=== PATIENT | male | born 1945 | race Caucasian/White ===

== ENCOUNTER 2020-05-17 15:11 | Outpatient (REF) | payer MEDICARE, SELFPAY | END 2020-05-17 15:12 | disposition home or self-care (01) | LOC: HO.LNP 15:11 | PROVIDERS: PCP Internal Medicine; Visit Provider Urology | DX: N40.1 Benign prostatic hyperplasia with lower urinary tract symptoms (principal); N13.8 Other obstructive and reflux uropathy; N39.0 Urinary tract infection, site not specified | CPT/HCPCS: 87086; 87088; 87186; 99212 ==

== ENCOUNTER 2020-07-10 20:36 | Inpatient (IN) | payer MEDICARE, SELFPAY ==
[2020-07-10 20:39] VITALS: BP 112/61; BP 160/90; PULSE 80; PULSE 84; RESP 16; TEMP 37.4; O2SAT 94; O2SAT 96; BMI 35.9
--- NOTE | 2020-07-10 20:51 | ED.WEAKNESS ---
HPI - Weakness General Chief complaint: Weakness Stated complaint: WEAKNESS X 1 DAY, UNABLE TO AMBULATE Time Seen by Provider: 07/10/20 20:45 Source: patient Mode of arrival: EMS Limitations: no limitations History of Present Illness HPI Narrative: Patient otherwise healthy was diagnosed with COVID 1 week ago for last few days been feeling very weak and today was feeling so weak that he could not get up from the floor for about 12 hours. Patient does feel shortness of breath but is not that much coughing occasionally no fever when patient came he was soiled in urine very exhausted very dry MD Complaint: generalized weakness Onset (ago): day(s) (2) Location: generalized Related Data Home Medications Medication Instructions Recorded Confirmed bromfenac 0.09 % eye drops drp OPHTHALMIC (EYE) 05/17/20 dorzolamide 22.3 mg-timolol 6.8 OPHTHALMIC (EYE) 05/17/20 mg/mL eye drops flu vacc [id number](65yr up)PF 180 ml IM 05/17/20 mcg/0.5 mL intramuscular syringe irbesartan 150 2 tab PO DAILY 05/17/20 mg-hydrochlorothiazide 12.5 mg tablet ofloxacin 0.3 % eye drops 1 drp OPHTHALMIC-RIGHT QID 05/17/20 oxybutynin chloride 15 mg 15 mg PO DAILY 05/17/20 tablet,extended release 24 hr tamsulosin 0.4 mg capsule 0.4 mg PO DAILY 05/17/20 Previous Rx's Medication Instructions Recorded sulfamethoxazole 800 1 tab PO BID 7 Days #14 tab 05/17/20 mg-trimethoprim 160 mg tablet Allergies Allergy/AdvReac Type Severity Reaction Status Date / Time No Known Allergies Allergy Verified 07/10/20 20:47 [No Known Allergies*] Review of Systems Review of Systems: Yes all other systems are reviewed and are negative Constitutional: Constitutional: Reports body ache(s), Reports fatigue, Reports lethargy, Reports malaise and Reports weakness Eyes: Eyes: Reports no additional eye complaints ENT: Reports system reviewed and no additional complaints, except as documented Cardiovascular: Cardiovascular: Reports no additional cardiovascular complaints and Reports dyspnea on exertion Respiratory: Respiratory: Reports cough and Reports dyspnea on exertion Gastrointestinal: Gastrointestinal: Reports no additional gastrointestinal complaints Genitourinary: Genitourinary: Reports no additional male genitourinary complaints Musculoskeletal: Musculoskeletal: Reports muscle weakness Neurologic: Reports system reviewed and no additional complaints, except as documented and Reports weakness Endocrine: Endocrine: Reports fatigue [facility] Past Medical History Medical History (Updated 07/11/20 @ 01:15 by Pratik Rhoades MD) BPH w urinary obs/LUTS Complicated urinary tract infection Social History Social History Advance Directives: No Advance Directives Information Provided: Yes Physical Exam Vital Signs: Vital Signs: Last Vital Signs Temp 99.0 F 07/11/20 00:00 Pulse 79 07/11/20 00:00 Resp 16 07/11/20 00:00 BP 119/66 07/11/20 00:00 Pulse Ox 95 07/11/20 00:00 Body Mass Index 35.9 Const: General: well developed, alert, awake, ill appearing and poor hygiene Orientation/consciousness: patient oriented x3 HENMT: Head: Yes normocephalic and Yes atraumatic Ears: hearing grossly normal bilaterally General nose exam: Normal external nose present Face and sinus: Yes normal facial exam Mouth: Abnormal oral and palatal mucosa present (Dry) Throat: Yes posterior oropharynx normal Eyes: General: appearance normal, both eyes and all related structures Neck: Neck: Yes normal visual inspection, Yes full ROM, Yes no lymphadenopathy and Yes no meningeal signs Chest: Chest palpation & inspection: normal palpation of entire chest wall Resp: Effort & Inspection: normal respiratory effort Auscultation: clear to auscultation bilaterally, no crackles, no rales, no rhonchi and no wheezes Cardio: Jugular venous distension: no JVD Rate: regular rate Rhythm: regular rhythm Heart sounds: S1 normal heart sound present and S2 normal heart sound present GI: Inspection: Yes normal to inspection Palpation (GI): Soft to palpation, nontender, no guarding and not rigid Auscultation: normal bowel sounds : General: Yes no CVA tenderness Back/Spine/Pelvis: Back: no CVA tenderness Thoracic/Lumbar Spine: thoracic and lumbar spine normal to inspection Skin: General skin exam: no rashes or lesions noted and dry skin Neuro: General: patient oriented x3, tone normal, moves all extremities, Normal light touch and pain sensation, no meningeal signs, no focal motor deficits and CN's II-XI intact bilaterally Extrem: General: Yes normal to inspection, Yes full ROM, Yes no calf tenderness and No pedal edema MDM - Weakness MDM Narrative Medical decision making narrative: Patient with COVID 19 infection with severe weakness unable to do any ADLs at home unable to get up from the floor saturating 94% at room air CT chest showed bilateral diffuse infiltrate patient is at 7 days of COVID infection CK is elevated suggestive of rhabdomyolysis will admit patient for supportive treatment received IV Decadron repeat lactic acid and recheck troponin Medical Records Attestation: I reviewed the patient's medical records. Lab Data Attestation: I reviewed the patient's lab results. Result diagrams: 07/10/20 22:39 07/10/20 23:55 Labs: Lab Results 07/10/20 07/10/20 07/10/20 Range/Units 22:16 22:39 22:39 WBC 9.5 (4.8-10.8) X10*3/uL RBC 5.35 (4.60-5.80) X10*6/uL Hgb 15.7 (14.0-18.0) g/dl Hct 46.7 (42-52) % MCV 87.3 (80-98) fL MCH 29.3 (27.0-33.0) pg MCHC 33.6 (31.0-36.0) g/dl RDW 14.3 (11.0-16.0) % Plt Count 123 L (160-400) X10*3/uL MPV 10.8 (9.4-12.4) fL Immature Gran % (Auto) 0.5 H (0.0-0.4) % Neut % (Auto) 63.8 (45-73) % Lymph % (Auto) 25.9 (20-40) % [place] % (Auto) 9.6 (2-11) % Eos % (Auto) 0.0 (0-4) % Baso % (Auto) 0.2 (0-2) % Lymph # (Auto) 2.5 (1.2-4.9) X10*3/uL [place] # (Auto) 0.9 (0.1-1.2) X10*3/uL Eos # (Auto) 0.0 (0.0-0.4) X10*3/uL Baso # (Auto) 0.0 (0.0-0.2) X10*3/uL Abs Immat Gran (auto) 0.05 H (0.00-0.03) X10*3/uL Absolute Neuts (auto) 6.1 (2.0-8.3) X10*3/uL Absolute Nucleated RBC 0.000 (0.0-0.012) X10*3/uL Nucleated RBC % (auto) 0.0 (0.0-0.2) /100WBC PT 14.4 H (10.8-13.0) SEC INR 1.2 H (0.9-1.1) D-Dimer 662 NG/ML Sodium Potassium Chloride Carbon Dioxide Anion Gap BUN Creatinine Estim Creat Clear Calc Estimated GFR Random Glucose Lactic Acid (0.5-2.0) mmol/L Calcium Ferritin Total Bilirubin Direct Bilirubin AST ALT Alkaline Phosphatase Lactate Dehydrogenase Total Creatine Kinase Troponin I High Sens (<3.5-35.0) ng/L Total Protein Albumin Coronavirus (PCR) POSITIVE A (Negative) Influenza Type A (PCR) NEGATIVE (Negative) Influenza Type B (PCR) NEGATIVE (Negative) RSV RNA Qual (PCR) NEGATIVE (Negative) 07/10/20 07/10/20 07/10/20 Range/Units 22:39 22:39 22:39 WBC (4.8-10.8) X10*3/uL RBC (4.60-5.80) X10*6/uL Hgb (14.0-18.0) g/dl Hct (42-52) % MCV (80-98) fL MCH (27.0-33.0) pg MCHC (31.0-36.0) g/dl RDW (11.0-16.0) % Plt Count (160-400) X10*3/uL MPV (9.4-12.4) fL Immature Gran % (Auto) (0.0-0.4) % Neut % (Auto) (45-73) % Lymph % (Auto) (20-40) % [place] % (Auto) (2-11) % Eos % (Auto) (0-4) % Baso % (Auto) (0-2) % Lymph # (Auto) (1.2-4.9) X10*3/uL [place] # (Auto) (0.1-1.2) X10*3/uL Eos # (Auto) (0.0-0.4) X10*3/uL Baso # (Auto) (0.0-0.2) X10*3/uL Abs Immat Gran (auto) (0.00-0.03) X10*3/uL Absolute Neuts (auto) (2.0-8.3) X10*3/uL Absolute Nucleated RBC (0.0-0.012) X10*3/uL Nucleated RBC % (auto) (0.0-0.2) /100WBC PT (10.8-13.0) SEC INR (0.9-1.1) D-Dimer NG/ML Sodium Cancelled Potassium Cancelled Chloride Cancelled Carbon Dioxide Cancelled Anion Gap Cancelled BUN Cancelled Creatinine Cancelled Estim Creat Clear Calc Cancelled Estimated GFR Cancelled Random Glucose Cancelled Lactic Acid 2.3 H* (0.5-2.0) mmol/L Calcium Cancelled Ferritin Cancelled Total Bilirubin Cancelled Direct Bilirubin Cancelled AST Cancelled ALT Cancelled Alkaline Phosphatase Cancelled Lactate Dehydrogenase Cancelled Total Creatine Kinase Cancelled Troponin I High Sens 36.2 H (<3.5-35.0) ng/L Total Protein Cancelled Albumin Cancelled Coronavirus (PCR) (Negative) Influenza Type A (PCR) (Negative) Influenza Type B (PCR) (Negative) RSV RNA Qual (PCR) (Negative) 07/10/20 Range/Units 23:55 WBC (4.8-10.8) X10*3/uL RBC (4.60-5.80) X10*6/uL Hgb (14.0-18.0) g/dl Hct (42-52) % MCV (80-98) fL MCH (27.0-33.0) pg MCHC (31.0-36.0) g/dl RDW (11.0-16.0) % Plt Count (160-400) X10*3/uL MPV (9.4-12.4) fL Immature Gran % (Auto) (0.0-0.4) % Neut % (Auto) (45-73) % Lymph % (Auto) (20-40) % [place] % (Auto) (2-11) % Eos % (Auto) (0-4) % Baso % (Auto) (0-2) % Lymph # (Auto) (1.2-4.9) X10*3/uL [place] # (Auto) (0.1-1.2) X10*3/uL Eos # (Auto) (0.0-0.4) X10*3/uL Baso # (Auto) (0.0-0.2) X10*3/uL Abs Immat Gran (auto) (0.00-0.03) X10*3/uL Absolute Neuts (auto) (2.0-8.3) X10*3/uL Absolute Nucleated RBC (0.0-0.012) X10*3/uL Nucleated RBC % (auto) (0.0-0.2) /100WBC PT (10.8-13.0) SEC INR (0.9-1.1) D-Dimer NG/ML Sodium 134 L Potassium 4.3 Chloride 103 Carbon Dioxide 17 L Anion Gap 18 BUN 35 H Creatinine 1.12 Estim Creat Clear Calc 71.8 Estimated GFR > 60 Random Glucose 100 Lactic Acid (0.5-2.0) mmol/L Calcium 8.0 L Ferritin 628 H Total Bilirubin 1.7 H Direct Bilirubin 0.5 AST 80 H ALT 37 Alkaline Phosphatase 54 Lactate Dehydrogenase Total Creatine Kinase 1005 H Troponin I High Sens (<3.5-35.0) ng/L Total Protein 6.2 L Albumin 3.5 Coronavirus (PCR) (Negative) Influenza Type A (PCR) (Negative) Influenza Type B (PCR) (Negative) RSV RNA Qual (PCR) (Negative) ECG Data Attestation: I personally reviewed and interpreted this ECG as follows: Interpretation: Normal sinus rhythm right bundle branch block normal axis no acute ST T-wave changes no previous EKG to compare impression right bundle-branch no acute ischemia Discharge Plan Discharge Clinical Impression: COVID-19, Weakness Rhabdomyolysis Qualifiers: Rhabdomyolysis type: non-traumatic Qualified Code(s): M62.82 - Rhabdomyolysis Patient Disposition: Admitted As Inpatient
--- NOTE | 2020-07-10 20:52 | ECG_ITS ---
Test Reason : WEAKNESS Blood Pressure : / mmHG Vent. Rate : 084 BPM Atrial Rate : 084 BPM P-R Int : 152 ms QRS Dur : 140 ms QT Int : 382 ms P-R-T Axes : 041 019 009 degrees QTc Int : 451 ms Normal sinus rhythm Right bundle branch block Abnormal ECG No previous ECGs available Referred By: Pratik Rhoades Electronically Signed By:ZAINAB LANDIN MD
--- NOTE | 2020-07-10 20:54 | CT_ITS ---
EXAMINATION: CT CHEST WITHOUT CONTRAST CLINICAL INFORMATION: COVID COMPARISON: 04/01/2019 TECHNIQUE: Multidetector volumetric CT imaging of the chest was done. Axial MIP volume rendering provided. Sagittal and coronal reformatted images were obtained. This CT examination was performed using dose optimization techniques as appropriate, variously including the following: *Automated exposure control *Adjustment of mA and/or kV according to patient size (this includes techniques or standardized protocols for targeted exams where dose is matched to indication/reason for exam; i.e. extremities or head) *Use of iterative reconstruction technique DLP: 54 mGy-cm FINDINGS: VP MARKETING: Lungs are symmetrically expanded. LUNGS: There are patchy areas of groundglass opacity throughout the lungs bilaterally. No dense focal consolidation or mass. MEDIASTINUM: There are calcified right hilar and mediastinal lymph nodes consistent with prior granulomatous disease. Numerous prominent mediastinal lymph nodes including paratracheal, prevascular, and subcarinal lymph nodes are present. PLEURA: There is no pleural effusion. No pleural mass or thickening. AXILLA: No lymphadenopathy. UPPER ABDOMEN: No adrenal mass. No calculi or gallstones. OSSEOUS STRUCTURES: Multilevel degenerative changes. CT/CT chest wo con IMPRESSION: There are numerous patchy areas of groundglass opacities throughout the lungs bilaterally, consistent with history of viral COVID pneumonitis.
[2020-07-10] MEDS: 0.9 % Sodium Chloride 1,000 ML 999 ML IVCONT (22:41)
[2020-07-10 22:51] LABS: Imm Gran Abs Auto 0.05 X10*3/uL (0.00-0.03); Imm Gran Pct Auto 0.5 % (0.0-0.4); MANUAL DIFF FLAG NO; PLT CLUMP 1; SCAN SMEAR FLAG 1
[2020-07-10 22:53] LABS: Basophils Percent Auto 0.2 % (0-2); Hematocrit 46.7 % (42-52); Hemoglobin 15.7 g/dl (14.0-18.0); Lymphocytes Absolute Auto 2.5 X10*3/uL (1.2-4.9); Lymphocytes Percent Auto 25.9 % (20-40); Mean Corpuscular HGB Conc 33.6 g/dl (31.0-36.0); Mean Corpuscular Hemoglobin 29.3 pg (27.0-33.0); Mean Corpuscular Volume 87.3 fL (80-98); Mean Platelet Volume 10.8 fL (9.4-12.4); Monocytes Absolute Auto 0.9 X10*3/uL (0.1-1.2); Monocytes Percent Auto 9.6 % (2-11); Neutrophils Absolute Auto 6.1 X10*3/uL (2.0-8.3); Neutrophils Percent Auto 63.8 % (45-73); Platelet Count 123 X10*3/uL (160-400); Red Blood Count 5.35 X10*6/uL (4.60-5.80); Red Cell Distribution Width 14.3 % (11.0-16.0); White Blood Count 9.5 X10*3/uL (4.8-10.8)
[2020-07-10 22:59] LABS: INTERNATIONAL NORM RATIO 1.2 (0.9-1.1); Prothrombin Time 14.4 SEC (10.8-13.0)
[2020-07-10 23:02] LABS: D Dimer 662 NG/ML
[2020-07-10 23:26] LABS: Troponin-I High Sensitivity 36.2 ng/L (<3.5-35.0)
[2020-07-10 23:27] LABS: Influenza A PCR NEGATIVE (Negative); Influenza B PCR NEGATIVE (Negative); Resp Syncy Virus RNA Qual PCR NEGATIVE (Negative)
[2020-07-10 23:27] LABS: Lactic Acid 2.3 mmol/L (0.5-2.0)
[2020-07-10 23:35] LABS: SARS COV2 PCR INHOUSE POSITIVE (Negative)
[2020-07-11] VITALS (10 sets, daily range): BP systolic 119–144; BP diastolic 61–74; PULSE 66–79; RESP 16–20; TEMP 36.4–37.2; O2SAT 4–98; BMI 34.5
[2020-07-11 00:50] LABS: Alanine Aminotransferase 37 U/L (0-40); Albumin Level 3.5 g/dL (3.5-5.0); Alkaline Phosphatase 54 U/L (39-117); Anion Gap 18 (12-20); Aspartate Amino Transferase 80 U/L (5-37); Bilirubin Direct 0.5 mg/dL (0.0-0.5); Bilirubin Total 1.7 mg/dL (0.0-1.0); Blood Urea Nitrogen 35 mg/dL (9-16); Carbon Dioxide 17 mmol/L (22-29); Chloride 103 mmol/L (96-108); Creatinine Clr Calc Pharmacy 71.8; Estimated Glomerular Filt Rate > 60; Glucose Random 100 mg/dL (60-115); Potassium 4.3 mmol/l (3.3-5.1); Sodium 134 mmol/L (135-145); Total Protein 6.2 g/dL (6.5-8.0)
[2020-07-11 00:53] LABS: Reflex Lactate? Lactic Acid Added
[2020-07-11 01:07] LABS: Ferritin 628 ng/mL (20-250)
[2020-07-11] MEDS: 0.9 % Sodium Chloride 1,000 ML 999 ML IVCONT (01:10)
[2020-07-11 02:13] LABS: ~Lactic Acid-LAB USE ONLY 1.6 mmol/L (0.5-2.0)
[2020-07-11 02:23] LABS: Troponin-I High Sensitivity 34.3 ng/L (<3.5-35.0)
--- NOTE | 2020-07-11 06:03 | PM.IMHP ---
History of Present Illness Date of Service: 07/11/20 Chief Complaint: Weakness 75-year-old male with past medical history of hypertension as well as BPH with urinary obstruction who presents to the hospital after being on the floor for couple of hours and unable to get of due to weakness. Patient was diagnosed with COVID-19 viral infection few days ago and has been feeling progressively weaker and weaker. He reports that he lowered himself to the floor on the day of presentation and was on the floor for up to 10 hours without being able to get up due to his generalized weakness. His family were not successful in getting her off the floor and called EMS and Was brought into the hospital. He denies having any shortness of breath, no chest pain, he is coughing but dry, he reports low oral intake but no loss of appetite, no abdominal pain, no diarrhea or constipation . He denies any urinary symptoms and no lower extremity edema. On arrival to the ED hemodynamically stable with no significant abnormal vitals Labs labs are significant for a normal WBC count of 9.5, platelet count of 123, PT of 14.4, INR of 1.2, sodium of 134, BUN of 35, creatinine of 1.12 (0.9 is his baseline), lactic acid of 2.3, CK of 1000, total bili of 1.7, AST of 80, high sensitivity troponin of 36 which trended down to 34, COVID-19 positive, and CT scan of the chest shows numerous patchy areas of ground-glass opacities throughout the lungs bilaterally Given his significant weakness, as well as rhabdo patient will be admitted for further management Past medical history: Hypertension, BPH with urinary obstruction Surgical history: Denies Family history: Denies Social history: Comes from home, lives with family, denies tobacco alcohol or illicit drugs Review of Systems Review of Systems: Yes all other systems are reviewed and are negative Constitutional: Constitutional: Reports weakness Neurologic: Reports system reviewed and no additional complaints, except as documented and Reports weakness [facility] Medical History (Updated 07/11/20 @ 06:09 by Bella Brennan MD) BPH w urinary obs/LUTS Complicated urinary tract infection Social History Smoked in Last 30 Days: No Use of substances other than those prescribed or required for medical reasons: No Advance Directives: No Advance Directives Information Provided: Yes Meds Allergies Allergy/AdvReac Type Severity Reaction Status Date / Time No Known Allergies Allergy Verified 07/10/20 20:47 [No Known Allergies*] Home Medications Medication Instructions Recorded Confirmed Type bromfenac 0.09 % eye drops 0.09 drp OPHTHALMIC (EYE) DAILY 05/17/20 07/11/20 History irbesartan 150 2 tab PO DAILY 05/17/20 07/11/20 History mg-hydrochlorothiazide 12.5 mg tablet oxybutynin chloride 15 mg 15 mg PO DAILY 05/17/20 07/11/20 History tablet,extended release 24 hr tamsulosin 0.4 mg capsule 0.4 mg PO DAILY 05/17/20 07/11/20 History Physical Exam Vital Signs and Narrative: Vital Signs: Last Vital Signs Temp 98.1 F 07/11/20 05:29 Pulse 74 07/11/20 05:29 Resp 16 07/11/20 05:29 BP 134/74 07/11/20 05:29 Pulse Ox 97 07/11/20 05:29 Body Mass Index 35.9 Const: General: cooperative, no acute distress, ill appearing, poor hygiene and tired appearing Nutritional Appearance: obese Orientation/consciousness: patient oriented x3 Eyes: General: appearance normal, both eyes and all related structures Resp: Effort & Inspection: normal respiratory effort and able to speak in complete sentences Auscultation: clear to auscultation bilaterally Cardio: Rate: regular rate Rhythm: regular rhythm GI: Palpation (GI): Soft to palpation Auscultation: normal bowel sounds Skin: General skin exam: no rashes or lesions noted Neuro: General: patient oriented x3 Cognition (Neuro): normal cognition Extrem: General: Yes normal to inspection and Yes no pedal edema Results Labs CBC and Chem 7: 07/10/20 22:39 07/10/20 23:55 Labs: Laboratory Results - last 24 hr 07/10/20 07/10/20 07/10/20 22:16 22:39 22:39 MCV 87.3 MCH 29.3 MCHC 33.6 RDW 14.3 Plt Count 123 L MPV 10.8 Immature Gran % (Auto) 0.5 H Neut % (Auto) 63.8 Lymph % (Auto) 25.9 [place] % (Auto) 9.6 Eos % (Auto) 0.0 Baso % (Auto) 0.2 Lymph # (Auto) 2.5 [place] # (Auto) 0.9 Eos # (Auto) 0.0 Baso # (Auto) 0.0 Abs Immat Gran (auto) 0.05 H Absolute Neuts (auto) 6.1 Absolute Nucleated RBC 0.000 Nucleated RBC % (auto) 0.0 PT 14.4 H INR 1.2 H D-Dimer 662 Anion Gap Estim Creat Clear Calc Estimated GFR Random Glucose Lactic Acid Lactic Acid Fup @ 2Hr Calcium Ferritin Total Bilirubin Direct Bilirubin AST ALT Alkaline Phosphatase Lactate Dehydrogenase Total Creatine Kinase Troponin I High Sens Total Protein Albumin Coronavirus (PCR) POSITIVE A Influenza Type A (PCR) NEGATIVE Influenza Type B (PCR) NEGATIVE RSV RNA Qual (PCR) NEGATIVE 07/10/20 07/10/20 07/10/20 22:39 22:39 22:39 MCV MCH MCHC RDW Plt Count MPV Immature Gran % (Auto) Neut % (Auto) Lymph % (Auto) [place] % (Auto) Eos % (Auto) Baso % (Auto) Lymph # (Auto) [place] # (Auto) Eos # (Auto) Baso # (Auto) Abs Immat Gran (auto) Absolute Neuts (auto) Absolute Nucleated RBC Nucleated RBC % (auto) PT INR D-Dimer Anion Gap Cancelled Estim Creat Clear Calc Cancelled Estimated GFR Cancelled Random Glucose Cancelled Lactic Acid 2.3 H* Lactic Acid Fup @ 2Hr Calcium Cancelled Ferritin Cancelled Total Bilirubin Cancelled Direct Bilirubin Cancelled AST Cancelled ALT Cancelled Alkaline Phosphatase Cancelled Lactate Dehydrogenase Cancelled Total Creatine Kinase Cancelled Troponin I High Sens 36.2 H Total Protein Cancelled Albumin Cancelled Coronavirus (PCR) Influenza Type A (PCR) Influenza Type B (PCR) RSV RNA Qual (PCR) 07/10/20 07/11/20 07/11/20 23:55 01:50 01:50 MCV MCH MCHC RDW Plt Count MPV Immature Gran % (Auto) Neut % (Auto) Lymph % (Auto) [place] % (Auto) Eos % (Auto) Baso % (Auto) Lymph # (Auto) [place] # (Auto) Eos # (Auto) Baso # (Auto) Abs Immat Gran (auto) Absolute Neuts (auto) Absolute Nucleated RBC Nucleated RBC % (auto) PT INR D-Dimer Anion Gap 18 Estim Creat Clear Calc 71.8 Estimated GFR > 60 Random Glucose 100 Lactic Acid Lactic Acid Fup @ 2Hr 1.6 Calcium 8.0 L Ferritin 628 H Total Bilirubin 1.7 H Direct Bilirubin 0.5 AST 80 H ALT 37 Alkaline Phosphatase 54 Lactate Dehydrogenase Total Creatine Kinase 1005 H Troponin I High Sens 34.3 Total Protein 6.2 L Albumin 3.5 Coronavirus (PCR) Influenza Type A (PCR) Influenza Type B (PCR) RSV RNA Qual (PCR) Imaging Radiologist's Impressions: Impressions Chest CT 07/10/20 20:54 IMPRESSION: There are numerous patchy areas of groundglass opacities throughout the lungs bilaterally, consistent with history of viral COVID pneumonitis. Assessment and Plan (1) Pneumonia due to COVID-19 virus: Status: Acute (2) Weakness: Status: Acute (3) MAURO (acute kidney injury): Status: Acute (4) COVID-19: Status: Acute This is a 75-year-old male who presents to the hospital for severe some weakness and recently diagnosed COVID-19 # COVID-19 pneumonia - not hypoxic at this time, no leukocytosis, but has severe weakness resulting in him being unable to ambulate - CT shows bilateral patchy ground-glass opacities Plan: - at this time will monitor for respiratory status and for any oxygen requirements # weakness - secondary to COVID-19 viral infection - unable to ambulate at all at home, has developed rhabdomyolysis as a result Plan: - IV fluids - supportive measures - PT OT # rhabdomyolysis - mild - has mild MAURO - will place - follow CK # MAURO - secondary to low oral intake as well as rhabdo - will start him on IV fluids and follow BMP # hypertension - will hold antihypertensive medication right now given his mild MAURO - resume once MAURO resolves DVT prophylaxis: Lovenox
--- NOTE | 2020-07-11 07:30 | PC.NURSE ---
discussed lovenox with pt. pt refused at this time. pt in and out of sleep. resp even and unlabored. aware of plan of care for admission. denied having any questions at this time.
--- NOTE | 2020-07-11 07:34 | PC.NURSE ---
moraima made aware of 2 maintenance fluids, states she has not yet reviewed her pts and she will let this rn know which one she would like
[2020-07-11] MEDS: 0.9 % Sodium Chloride Flush 3 ML SYRINGE IVFLUSH (09:05)
--- NOTE | 2020-07-11 09:05 | PC.NURSE ---
pt aware of transfer, disheveled in bed. does not want to move to get up. report given to [facility]
[2020-07-11] MEDS: Lactated Ringers 1,000 ML 100 ML IVCONT ×2 (10:47→20:24)
[2020-07-11] MEDS: Tamsulosin HCL 0.4 MG CAPSULE PO (10:47)
[2020-07-11 12:28] LABS: Glucose Urine UA NEG (NEG); Leukocyte Esterase Urine NEG (NEG); Nitrite Urine POS (NEG); Specific Gravity - Urine 1.025 (1.005-1.025); Urine Blood 3+ (NEG); Urine Ketones NEG (NEG); Urine Protein TRACE MG/DL (NEG-TRACE)
[2020-07-11 12:37] LABS: Appearance Urine CLEAR; Color Urine YELLOW
[2020-07-11 12:52] LABS: Bacteria Urine TRACE /LPF; Hyaline Casts Urine 0-2 /LPF; RBC Urine 30-49 /HPF (0); Squamous Epithelial Cell Urine TRACE /LPF; WBC Urine 0-2 /HPF (0-4)
[2020-07-11 12:53] LABS: Granular Casts Urine 0-2 /LPF
--- NOTE | 2020-07-11 14:12 | MHC.CM.PN ---
IMM07/11/20 Male 75 dx covid+ lives alone independent no ad dp home no services fried to transport to home. HCP completed on chart. Copies of HCP provided to Patient CM will follow.
--- NOTE | 2020-07-11 14:18 | P.EN_ITS ---
Event Note Date of Service: 07/11/20 Event Note: 75-year-old gentleman presented to [place] due to weakness and rec ently diagnosed COVID-19 infection Assessment plan COVID-19 pneumonia elevated with patchy ground-glass opacities throughout the lungs bilaterally, D-dimer 662 98% on room air Weakness Rhabdo Lactic acidosis Obstructive sleep apnea ordered cpap UA nitrate positive no WBC follow urine culture and blood culture Continue supportive care IV fluid and care of plan as per admitting physician
--- NOTE | 2020-07-11 22:48 | PC.NURSE ---
pt had 9 beat of vtach, pt assess no chest pain, palpitations, lightheadedness or dizziness, or shortness of breath. md made aware. remains sinus rhythm on tele at this time
[2020-07-12] VITALS (11 sets, daily range): BP systolic 94–185; BP diastolic 50–71; PULSE 80–89; RESP 18–26; TEMP 37.1–39.5; O2SAT 89–96; BMI 34.5
[2020-07-12 00:01] LABS: Anion Gap 15 (12-20); Blood Urea Nitrogen 25 mg/dL (9-16); Calcium 7.8 mg/dL (8.4-10.2); Carbon Dioxide 22 mmol/L (22-29); Chloride 100 mmol/L (96-108); Creatinine Clr Calc Pharmacy 105.3; Estimated Glomerular Filt Rate > 60; Glucose Random 93 mg/dL (60-115); Magnesium 2.6 mg/dL (1.6-2.6); Potassium 4.1 mmol/l (3.3-5.1); Sodium 133 mmol/L (135-145)
[2020-07-12] MEDS: Acetaminophen 325 MG TABLET 650 MG PO ×3 (00:08→19:52)
[2020-07-12] MEDS: Enoxaparin Sodium 40 MG/0.4 ML SYRINGE SUBCUT (05:48)
[2020-07-12] MEDS: Lactated Ringers 1,000 ML 100 ML IVCONT ×2 (05:49→16:24)
[2020-07-12 05:56] LABS: Basophils Percent Auto 0.1 % (0-2); Hemoglobin 15.5 g/dl (14.0-18.0); MANUAL DIFF FLAG SCAN; Mean Corpuscular Hemoglobin 29.9 pg (27.0-33.0); PLT CLUMP 1; Red Cell Distribution Width 14.4 % (11.0-16.0); SCAN SMEAR FLAG 1
[2020-07-12 05:59] LABS: Hematocrit 46.2 % (42-52); Imm Gran Abs Auto 0.07 X10*3/uL (0.00-0.03); Imm Gran Pct Auto 0.7 % (0.0-0.4); Lymphocytes Absolute Auto 2.1 X10*3/uL (1.2-4.9); Lymphocytes Percent Auto 21.6 % (20-40); Mean Corpuscular HGB Conc 33.5 g/dl (31.0-36.0); Mean Corpuscular Volume 89.2 fL (80-98); Monocytes Absolute Auto 1.1 X10*3/uL (0.1-1.2); Neutrophils Absolute Auto 6.6 X10*3/uL (2.0-8.3); Neutrophils Percent Auto 66.6 % (45-73); Red Blood Count 5.18 X10*6/uL (4.60-5.80); White Blood Count 9.9 X10*3/uL (4.8-10.8)
[2020-07-12 06:45] LABS: Anion Gap 17 (12-20); Blood Urea Nitrogen 25 mg/dL (9-16); Calcium 7.8 mg/dL (8.4-10.2); Carbon Dioxide 19 mmol/L (22-29); Chloride 101 mmol/L (96-108); Creatinine Clr Calc Pharmacy 88.7; Estimated Glomerular Filt Rate > 60; Glucose Random 91 mg/dL (60-115); Potassium 4.6 mmol/l (3.3-5.1); Sodium 132 mmol/L (135-145)
[2020-07-12 07:29] LABS: Platelet Count 105 X10*3/uL (160-400); SLIDE REVIEW VERIFIED
[2020-07-12] MEDS: Tamsulosin HCL 0.4 MG CAPSULE PO (07:53)
--- NOTE | 2020-07-12 13:49 | MHC.CM.PN ---
Male 75 DX Covid + DP home no services initially. Patient is confused today. DP will be determined by the Patients recovery. He will arrange for private transportation to home vs BLS STR. CM will follow.
--- NOTE | 2020-07-12 14:40 | PC.NURSE ---
Overnight Rn reported pt increased confusion overnight- pt believing son was just at bedside when no one had been in room. Confused as to where he was, did have a fever at that point that his prn tylenol brought down. This am when RN assessed pt pt was aware he was in the hospital and aware of time and situation but stating he was in a different hospital. Vitals were stable at that time. In early afternoon RN to assess pt again, pt did know [place] AOx4 but he was not following simple commands as turn this way/please show me your arm and small tasks. Pt denying and SOB pain, n/v - no complaints. Vitals checked - o2 sat was 89% on room air. notified - ok to be placed pt in 2L NC at this time. Sat currently 92% - will monitor sats and orientation closely. Pt remains pleasent. Lugs dim, nonproductive cough. Incontinent at times-freq changing pt and repo. Pt has stage I & II bilateral buttocks which he came in with. Scrotum very red -pt states likel r/t when he was at home in urine on the floor. Putting triad cream on buttocks, using pillows and encouraging freq repo. Other skin remains intact. Will continue to current plan and update with any changes.
--- NOTE | 2020-07-12 16:27 | P.PNIM_ITS ---
Subjective Subjective Date of Service: 07/12/20 Interval History: patient seen and examined at bedside patient reported dyspnea Constitutional Constitutional: Reports weakness Neurologic Neurologic: Reports system reviewed and no additional complaints, except as documented and Reports weakness Physical Exam Vital Signs: Vital Signs: Last Vital Signs Temp 98.7 F 07/12/20 15:09 Pulse 86 07/12/20 15:09 Resp 25 H 07/12/20 15:09 BP 131/60 07/12/20 15:09 Pulse Ox 95 07/12/20 15:09 Body Mass Index 34.5 Const: General: cooperative, no acute distress, ill appearing, poor hygiene and tired appearing Nutritional Appearance: obese Orientation/consciousness: patient oriented x3 Eyes: General: appearance normal, both eyes and all related structures Resp: Effort & Inspection: normal respiratory effort and able to speak in complete sentences Auscultation: clear to auscultation bilaterally Cardio: Rate: regular rate Rhythm: regular rhythm GI: Palpation (GI): Soft to palpation Auscultation: normal bowel sounds Skin: General skin exam: no rashes or lesions noted Neuro: General: patient oriented x3 Cognition (Neuro): normal cognition Extrem: General: Yes normal to inspection and Yes no pedal edema Objective Data Current Medications Generic Name Dose Route Start Last Admin Trade Name Freq PRN Reason Stop Dose Admin Acetaminophen 650 mg 07/11/20 05:29 07/12/20 05:48 Acetaminophen 325 Mg Tablet PO 650 mg Q6H PRN Administration Pain, Mild (Pain Scale 1-3) Enoxaparin Sodium 40 mg 07/11/20 05:30 07/12/20 05:48 Enoxaparin Sodium 40 Mg/0.4 Ml Syringe SUBCUT 40 mg Q24H KARIN Administration Hydrochlorothiazide 25 mg 07/11/20 09:00 Hydrochlorothiazide 25 Mg Tablet PO DAILY KARIN Protocol Lactated Ringer's 1,000 mls @ 100 mls/hr 07/11/20 06:15 07/12/20 05:49 Lr IVCONT 100 mls/hr .Q10H KARIN Administration Non-Formulary Medication 0.09 drop 07/11/20 09:00 Bromfenac EYE-BOTH DAILY KARIN Ondansetron HCl 4 mg 07/11/20 05:29 Ondansetron Hcl 4 Mg/2 Ml Vial IVPUSH Q8H PRN Nausea and Vomiting Oxybutynin Chloride 15 mg 07/11/20 09:00 07/12/20 07:52 Oxybutynin Chloride Er 5 Mg Tab.Er.24 PO 15 mg DAILY KARIN Administration Sodium Chloride 3 ml 07/11/20 08:00 07/12/20 07:53 0.9 % Sodium Chloride Flush 3 Ml Syringe IVFLUSH Not Given QSHIFT KARIN Tamsulosin HCl 0.4 mg 07/11/20 09:00 07/12/20 07:53 Tamsulosin Hcl 0.4 Mg Capsule PO 0.4 mg DAILY KARIN Administration Valsartan 160 mg 07/11/20 09:00 Valsartan 160 Mg Tablet PO DAILY [facility] Protocol Labs CBC & Chem 7: 07/12/20 05:02 07/12/20 05:02 Microbiology Microbiology Results: Microbiology 07/11/20 Unknown Urine clean catch - Clean Catch Midstream Urine Culture - Final 07/10/20 22:43 Blood - Venous Blood Culture - Preliminary No growth after 24 hours. 07/10/20 22:39 Blood - Venous Blood Culture - Preliminary No growth after 24 hours. Assessment and Plan (1) Pneumonia due to COVID-19 virus: Status: Acute (2) Weakness: Status: Acute (3) MAURO (acute kidney injury): Status: Acute (4) COVID-19: Status: Acute Assessment and Plan: This is a 75-year-old male who presents to the hospital for severe some weakness and recently diagnosed COVID-19 COVID-19 pneumonia Acute hypoxic respiratory failure CT shows bilateral patchy ground-glass opacities continue supportive management Mild rhabdomyolysis improving MAURO resolving received IV fluid monitor kidney function DVT prophylaxis: Lovenox
[2020-07-12] MEDS: 0.9 % Sodium Chloride Flush 3 ML SYRINGE IVFLUSH (19:53)
[2020-07-12] MEDS: Ibuprofen 600 MG TABLET PO (22:09)
[2020-07-13] VITALS (10 sets, daily range): BP systolic 104–178; BP diastolic 52–81; PULSE 64–98; RESP 16–28; TEMP 36.3–39.4; O2SAT 88–94
[2020-07-13] MEDS: Lactated Ringers 1,000 ML 100 ML IVCONT (02:31)
[2020-07-13] MEDS: Enoxaparin Sodium 40 MG/0.4 ML SYRINGE SUBCUT (05:07)
--- NOTE | 2020-07-13 05:35 | PC.NURSE ---
Patient was delirious with temperature of 103?F rectally at the beginning of the shift, desats to the mid 80s while on CPAP 12 cm H2O with oxygen flow rate at 2 LPM/min. He tried to take the mask off of his face. He received Tylenol and Motrin from previous shift. Cold compress and ice pack applied to bilateral axilla and groin areas and cold wash cloth to forehead. Blood pressures dropped also. Vital signs monitored every hour during febrile episodes until stable. Lung sounds diminished on auscultation. Back CPT done and patient placed on alternating side lying position. Incontinent of urine and [place] catheter put in. Vital signs resolved and mentation was back to baseline. In some point during the night, oxygen increased to 4 LPM and then switched back to 2 LPM around 0430. Patient was resting comfortably in bed at this time being. Needs were attended. Will continue care plan.
[2020-07-13] MEDS: Tamsulosin HCL 0.4 MG CAPSULE PO (09:11)
[2020-07-13] MEDS: 0.9 % Sodium Chloride Flush 3 ML SYRINGE IVFLUSH ×3 (09:11→19:26)
[2020-07-13] MEDS: Acetaminophen 325 MG TABLET 650 MG PO ×2 (12:24→19:19)
--- NOTE | 2020-07-13 14:38 | HO.PM.IMPN ---
Subjective Subjective Date of Service: 07/13/20 Interval History: Patient seen and examined at bedside patient reported dyspnea Constitutional Constitutional: Reports weakness Neurologic Neurologic: Reports system reviewed and no additional complaints, except as documented and Reports weakness Physical Exam Vital Signs: Vital Signs: Last Vital Signs Temp 103.0 F H 07/13/20 12:00 Pulse 98 07/13/20 12:00 Resp 24 H 07/13/20 12:00 BP 178/81 H 07/13/20 12:00 Pulse Ox 90 L 07/13/20 12:00 Body Mass Index 34.5 Const: General: cooperative, no acute distress, ill appearing, poor hygiene and tired appearing Nutritional Appearance: obese Orientation/consciousness: patient oriented x3 Eyes: General: appearance normal, both eyes and all related structures Resp: Effort & Inspection: normal respiratory effort and able to speak in complete sentences Auscultation: clear to auscultation bilaterally Cardio: Rate: regular rate Rhythm: regular rhythm GI: Palpation (GI): Soft to palpation Auscultation: normal bowel sounds Skin: General skin exam: no rashes or lesions noted Neuro: General: patient oriented x3 Cognition (Neuro): normal cognition Extrem: General: Yes normal to inspection and Yes no pedal edema Objective Data Current Medications Generic Name Dose Route Start Last Admin Trade Name Freq PRN Reason Stop Dose Admin Acetaminophen 650 mg 07/11/20 05:29 07/13/20 12:24 Acetaminophen 325 Mg Tablet PO 650 mg Q6H PRN Administration Pain, Mild (Pain Scale 1-3) Enoxaparin Sodium 40 mg 07/11/20 05:30 07/13/20 05:07 Enoxaparin Sodium 40 Mg/0.4 Ml Syringe SUBCUT 40 mg Q24H KARIN Administration Hydrochlorothiazide 25 mg 07/11/20 09:00 Hydrochlorothiazide 25 Mg Tablet PO DAILY KARIN Protocol Lactated Ringer's 1,000 mls @ 100 mls/hr 07/11/20 06:15 07/13/20 12:05 Lr IVCONT Infused .Q10H KARIN Infusion Non-Formulary Medication 0.09 drop 07/11/20 09:00 Bromfenac EYE-BOTH DAILY KARIN Ondansetron HCl 4 mg 07/11/20 05:29 Ondansetron Hcl 4 Mg/2 Ml Vial IVPUSH Q8H PRN Nausea and Vomiting Oxybutynin Chloride 15 mg 07/11/20 09:00 07/13/20 09:11 Oxybutynin Chloride Er 5 Mg Tab.Er.24 PO 15 mg DAILY KARIN Administration Sodium Chloride 3 ml 07/11/20 08:00 07/13/20 09:11 0.9 % Sodium Chloride Flush 3 Ml Syringe IVFLUSH 3 ml QSHIFT KARIN Administration Tamsulosin HCl 0.4 mg 07/11/20 09:00 07/13/20 09:11 Tamsulosin Hcl 0.4 Mg Capsule PO 0.4 mg DAILY KARIN Administration Valsartan 160 mg 07/11/20 09:00 Valsartan 160 Mg Tablet PO DAILY [facility] Protocol Labs CBC & Chem 7: 07/12/20 05:02 07/12/20 05:02 Microbiology Microbiology Results: Microbiology 07/10/20 22:43 Blood - Venous Blood Culture - Preliminary No growth after 48 hours. 07/10/20 22:39 Blood - Venous Blood Culture - Preliminary No growth after 48 hours. 07/11/20 Unknown Urine clean catch - Clean Catch Midstream Urine Culture - Final Assessment and Plan (1) Pneumonia due to COVID-19 virus: Status: Acute (2) Weakness: Status: Acute (3) MAURO (acute kidney injury): Status: Acute (4) COVID-19: Status: Acute Assessment and Plan: 75-year-old male who presents to the hospital for severe some weakness and recently diagnosed COVID-19 COVID-19 pneumonia Still spiking fever and requiring oxygen Acute hypoxic respiratory failure CT shows bilateral patchy ground-glass opacities continue supportive management Mild rhabdomyolysis improving MAURO resolving received IV fluid monitor kidney function DVT prophylaxis: Lovenox
[2020-07-13 16:33] LABS: Anion Gap 14 (12-20); Blood Urea Nitrogen 21 mg/dL (9-16); Calcium 7.3 mg/dL (8.4-10.2); Carbon Dioxide 23 mmol/L (22-29); Chloride 103 mmol/L (96-108); Creatinine Clr Calc Pharmacy 97.5; Estimated Glomerular Filt Rate > 60; Glucose Random 160 mg/dL (60-115); Potassium 3.6 mmol/l (3.3-5.1); Sodium 136 mmol/L (135-145)
[2020-07-13] MEDS: Ibuprofen 400 MG TABLET PO (20:59)
--- NOTE | 2020-07-13 22:16 | PC.NURSE ---
Patient's temperature orally taken at 1900 100.8, Tylenol 650mg given. Reassessed 1 hour later temp was 101.7. Ice packs applied to bilateral armpits and MD notified. ordered Dantenurse administered at 2100. Reassessed temp 1 hour later noted to be 98.5. Will continue to monitor.
[2020-07-14] VITALS (12 sets, daily range): BP systolic 110–173; BP diastolic 55–77; PULSE 73–144; RESP 18–28; TEMP 36.3–38.7; O2SAT 88–98; BMI 34.7
--- NOTE | 2020-07-14 | XR_ITS ---
EXAMINATION: XR CHEST CLINICAL INFORMATION: Hypoxia. Increased work of reading. Covid. COMPARISON: Chest CT from 07/10/2020 TECHNIQUE: Frontal view of the chest was obtained. FINDINGS: Lungs are well expanded. Patchy groundglass and airspace opacities of both lungs are similar to slightly worse in appearance compared to the chest CT of 07/10/2020. Cardiac silhouette is normal in size. No pleural effusion or pneumothorax. The visualized bones are intact. XR/XR chest 1V IMPRESSION: There appears to be mild interval worsening of multilobar pneumonia compared to the chest CT of 07/10/2020.
[2020-07-14] MEDS: Enoxaparin Sodium 40 MG/0.4 ML SYRINGE SUBCUT (04:38)
--- NOTE | 2020-07-14 06:44 | P.EN_ITS ---
Event Note Date of Service: 07/14/20 Event Note: Called to bedside by nursing staff as patient had significant hypo xemia with sats dropping into the 70's. Upon my arrival he was having severe rigors but was able to interact and answer question. He did not state any chest pain or dyspnea but was obviously tachypneic and in some mild distress. On exam he had coarse breath sounds bilaterally diminished at the lung bases. High flow nasal cannula ordered and Tylenol 1,000mg IV and Decadron 6mg IV started and wi ll get a set of blood cultures given the rigors. Doubt he could prone easily in his current state. Will continue to closely monitor and have called the ICU to alert them to his deterioration.
[2020-07-14 07:11] LABS: MANUAL DIFF FLAG NO
[2020-07-14 07:18] LABS: Basophils Percent Auto 0.2 % (0-2); Hematocrit 41.5 % (42-52); Hemoglobin 13.9 g/dl (14.0-18.0); Imm Gran Abs Auto 0.14 X10*3/uL (0.00-0.03); Imm Gran Pct Auto 1.5 % (0.0-0.4); Lymphocytes Absolute Auto 1.1 X10*3/uL (1.2-4.9); Lymphocytes Percent Auto 11.9 % (20-40); Mean Corpuscular HGB Conc 33.5 g/dl (31.0-36.0); Mean Corpuscular Volume 89.6 fL (80-98); Mean Platelet Volume 10.1 fL (9.4-12.4); Monocytes Absolute Auto 0.3 X10*3/uL (0.1-1.2); Monocytes Percent Auto 3.4 % (2-11); Neutrophils Absolute Auto 7.6 X10*3/uL (2.0-8.3); Platelet Count 134 X10*3/uL (160-400); Red Blood Count 4.63 X10*6/uL (4.60-5.80); Red Cell Distribution Width 14.7 % (11.0-16.0); White Blood Count 9.2 X10*3/uL (4.8-10.8)
[2020-07-14 07:55] LABS: Calcium 7.5 mg/dL (8.4-10.2)
[2020-07-14 07:58] LABS: Anion Gap 19 (12-20); Blood Urea Nitrogen 26 mg/dL (9-16); Carbon Dioxide 20 mmol/L (22-29); Chloride 101 mmol/L (96-108); Creatinine Clr Calc Pharmacy 86.8; Estimated Glomerular Filt Rate > 60; Glucose Random 112 mg/dL (60-115); Potassium 3.5 mmol/l (3.3-5.1); Sodium 136 mmol/L (135-145)
[2020-07-14] MEDS: Tamsulosin HCL 0.4 MG CAPSULE PO (08:08)
[2020-07-14] MEDS: 0.9 % Sodium Chloride Flush 3 ML SYRINGE IVFLUSH ×3 (08:08→23:36)
--- NOTE | 2020-07-14 13:44 | P.PNIM_ITS ---
Subjective Subjective Date of Service: 07/14/20 Interval History: Patient seen and examined at bedside patient reported dyspnea Constitutional Constitutional: Reports weakness Neurologic Neurologic: Reports system reviewed and no additional complaints, except as documented and Reports weakness Physical Exam Vital Signs: Vital Signs: Last Vital Signs Temp 97.4 F 07/14/20 12:00 Pulse 77 07/14/20 12:00 Resp 19 07/14/20 12:00 BP 132/77 07/14/20 12:00 Pulse Ox 97 07/14/20 12:00 Body Mass Index 34.7 Const: General: cooperative, no acute distress, ill appearing, poor hygiene and tired appearing Nutritional Appearance: obese Orientation/consciousness: patient oriented x3 Eyes: General: appearance normal, both eyes and all related structures Resp: Effort & Inspection: normal respiratory effort and able to speak in complete sentences Auscultation: rales Cardio: Rate: regular rate Rhythm: regular rhythm GI: Palpation (GI): Soft to palpation Auscultation: normal bowel sounds Skin: General skin exam: no rashes or lesions noted Neuro: General: patient oriented x3 Cognition (Neuro): normal cognition Extrem: General: Yes normal to inspection and Yes no pedal edema Objective Data Current Medications Generic Name Dose Route Start Last Admin Trade Name Freq PRN Reason Stop Dose Admin Acetaminophen 650 mg 07/11/20 05:29 07/13/20 19:19 Acetaminophen 325 Mg Tablet PO 650 mg Q6H PRN Administration Pain, Mild (Pain Scale 1-3) Dexamethasone Sodium Phosphate 6 mg 07/14/20 06:30 07/14/20 06:36 Dexamethasone Sod Phosphate/Pf 10 Mg/Ml Vial IVPUSH 6 mg DAILY KARIN Administration Enoxaparin Sodium 40 mg 07/11/20 05:30 07/14/20 04:38 Enoxaparin Sodium 40 Mg/0.4 Ml Syringe SUBCUT 40 mg Q24H KARIN Administration Hydrochlorothiazide 25 mg 07/11/20 09:00 Hydrochlorothiazide 25 Mg Tablet PO DAILY [facility] Protocol Non-Formulary Medication 0.09 drop 07/11/20 09:00 Bromfenac EYE-BOTH DAILY KARIN Ondansetron HCl 4 mg 07/11/20 05:29 Ondansetron Hcl 4 Mg/2 Ml Vial IVPUSH Q8H PRN Nausea and Vomiting Oxybutynin Chloride 15 mg 07/11/20 09:00 07/14/20 08:08 Oxybutynin Chloride Er 5 Mg Tab.Er.24 PO 15 mg DAILY KARIN Administration Sodium Chloride 3 ml 07/11/20 08:00 07/14/20 08:08 0.9 % Sodium Chloride Flush 3 Ml Syringe IVFLUSH 3 ml QSHIFT KARIN Administration Tamsulosin HCl 0.4 mg 07/11/20 09:00 07/14/20 08:08 Tamsulosin Hcl 0.4 Mg Capsule PO 0.4 mg DAILY KARIN Administration Valsartan 160 mg 07/11/20 09:00 Valsartan 160 Mg Tablet PO DAILY [facility] Protocol Labs CBC & Chem 7: 07/14/20 07:02 07/14/20 07:02 Microbiology Microbiology Results: Microbiology 07/10/20 22:43 Blood - Venous Blood Culture - Preliminary No growth after 48 hours. 07/10/20 22:39 Blood - Venous Blood Culture - Preliminary No growth after 48 hours. 07/11/20 Unknown Urine clean catch - Clean Catch Midstream Urine Culture - Final Assessment and Plan (1) Pneumonia due to COVID-19 virus: Status: Acute (2) Weakness: Status: Acute (3) MAURO (acute kidney injury): Status: Acute (4) COVID-19: Status: Acute Assessment and Plan: 75-year-old male who presents to the hospital for severe some weakness and recently diagnosed COVID-19 COVID-19 pneumonia Acute hypoxic respiratory failure patient became more hypoxic last night placed on high-flow currently on 50 L of high-flow CT shows bilateral patchy ground-glass opacities continue IV dexamethasone convalscent plasma ordered id consult for possible remdesivir continue supportive management Mild rhabdomyolysis resolving MAURO resolving received IV fluid monitor kidney function DVT prophylaxis: Lovenox
--- NOTE | 2020-07-14 18:07 | PC.NURSE ---
LATE ENTRY: 1037AM- NOTIFIED BY BLOOD BANK PLASMA UNAVAILABLE REGIONALLY AT THIS TIME. WILL LET US KNOW WHEN AVAILABLE. DR MICHELE NOTIFIED. 172: PT DESAT TO 82% ON 55% HIGH FLOW. ALSO SHAKING. TEMP 97.5 ORALLY. INC URINE. CLEANED, REPOSITIONED ONTO LEFT SIDE. [place] CATH APPLIED. HOB ELEVATED. SATS REMAIN 84%. PLACED ON 100%NRB WELL HIGH FLOW. SATS IMPROVED TO 94%. DR MICHELE NOTIFIED AND WILL CONTINUE TO MONITOR
[2020-07-15] VITALS (11 sets, daily range): BP systolic 120–140; BP diastolic 56–72; PULSE 66–107; RESP 18–22; TEMP 33.3–38.5; O2SAT 90–97
[2020-07-15] MEDS: Enoxaparin Sodium 40 MG/0.4 ML SYRINGE SUBCUT (04:58)
[2020-07-15 09:19] LABS: MANUAL DIFF FLAG NO
[2020-07-15 09:24] LABS: Basophils Percent Auto 0.1 % (0-2); Hemoglobin 13.5 g/dl (14.0-18.0); Imm Gran Pct Auto 1.4 % (0.0-0.4); Lymphocytes Absolute Auto 1.5 X10*3/uL (1.2-4.9); Lymphocytes Percent Auto 21.9 % (20-40); Mean Corpuscular HGB Conc 32.9 g/dl (31.0-36.0); Mean Corpuscular Hemoglobin 29.3 pg (27.0-33.0); Mean Corpuscular Volume 89.1 fL (80-98); Mean Platelet Volume 10.1 fL (9.4-12.4); Monocytes Absolute Auto 0.4 X10*3/uL (0.1-1.2); Monocytes Percent Auto 6.2 % (2-11); Neutrophils Absolute Auto 4.9 X10*3/uL (2.0-8.3); Neutrophils Percent Auto 70.4 % (45-73); Platelet Count 168 X10*3/uL (160-400); Red Cell Distribution Width 15.1 % (11.0-16.0)
[2020-07-15] MEDS: Tamsulosin HCL 0.4 MG CAPSULE PO (09:29)
[2020-07-15] MEDS: 0.9 % Sodium Chloride Flush 3 ML SYRINGE IVFLUSH ×3 (09:29→23:08)
[2020-07-15 09:50] LABS: Anion Gap 12 (12-20); Blood Urea Nitrogen 25 mg/dL (9-16); Calcium 7.4 mg/dL (8.4-10.2); Carbon Dioxide 25 mmol/L (22-29); Chloride 103 mmol/L (96-108); Creatinine Clr Calc Pharmacy 97.8; Estimated Glomerular Filt Rate > 60; Glucose Random 103 mg/dL (60-115); Sodium 136 mmol/L (135-145)
--- NOTE | 2020-07-15 13:43 | HO.PM.IMPN ---
Subjective Subjective Date of Service: 07/15/20 Interval History: Patient seen and examined at bedside patient reported dyspnea continues to require high-flow non-rebreather Constitutional Constitutional: Reports weakness Neurologic Neurologic: Reports system reviewed and no additional complaints, except as documented and Reports weakness Physical Exam Vital Signs: Vital Signs: Last Vital Signs Temp 100.2 F 07/15/20 12:00 Pulse 107 H 07/15/20 12:00 Resp 20 07/15/20 12:00 BP 126/66 07/15/20 12:00 Pulse Ox 95 07/15/20 12:00 Body Mass Index 34.7 Const: General: cooperative, no acute distress, ill appearing, poor hygiene and tired appearing Nutritional Appearance: obese Orientation/consciousness: patient oriented x3 Eyes: General: appearance normal, both eyes and all related structures Resp: Auscultation: rales Cardio: Rate: regular rate Rhythm: regular rhythm GI: Palpation (GI): Soft to palpation Auscultation: normal bowel sounds Skin: General skin exam: no rashes or lesions noted Neuro: General: patient oriented x3 Cognition (Neuro): normal cognition Extrem: General: Yes normal to inspection and Yes no pedal edema Objective Data Current Medications Generic Name Dose Route Start Last Admin Trade Name Freq PRN Reason Stop Dose Admin Acetaminophen 650 mg 07/11/20 05:29 07/13/20 19:19 Acetaminophen 325 Mg Tablet PO 650 mg Q6H PRN Administration Pain, Mild (Pain Scale 1-3) Dexamethasone Sodium Phosphate 6 mg 07/14/20 06:30 07/15/20 09:29 Dexamethasone Sod Phosphate/Pf 10 Mg/Ml Vial IVPUSH 6 mg DAILY KARIN Administration Enoxaparin Sodium 40 mg 07/11/20 05:30 07/15/20 04:58 Enoxaparin Sodium 40 Mg/0.4 Ml Syringe SUBCUT 40 mg Q24H KARIN Administration Hydrochlorothiazide 25 mg 07/11/20 09:00 Hydrochlorothiazide 25 Mg Tablet PO DAILY [facility] Protocol Non-Formulary Medication 0.09 drop 07/11/20 09:00 Bromfenac EYE-BOTH DAILY [facility] Ondansetron HCl 4 mg 07/11/20 05:29 Ondansetron Hcl 4 Mg/2 Ml Vial IVPUSH Q8H PRN Nausea and Vomiting Oxybutynin Chloride 15 mg 07/11/20 09:00 07/15/20 09:29 Oxybutynin Chloride Er 5 Mg Tab.Er.24 PO 15 mg DAILY KARIN Administration Sodium Chloride 3 ml 07/11/20 08:00 07/15/20 09:29 0.9 % Sodium Chloride Flush 3 Ml Syringe IVFLUSH 3 ml QSHIFT KARIN Administration Tamsulosin HCl 0.4 mg 07/11/20 09:00 07/15/20 09:29 Tamsulosin Hcl 0.4 Mg Capsule PO 0.4 mg DAILY KARIN Administration Valsartan 160 mg 07/11/20 09:00 Valsartan 160 Mg Tablet PO DAILY [facility] Protocol Labs CBC & Chem 7: 07/15/20 09:00 07/15/20 09:00 Microbiology Microbiology Results: Microbiology 07/14/20 06:55 Blood - Venous Blood Culture - Preliminary No growth after 24 hours. 07/14/20 07:02 Blood - Venous Blood Culture - Preliminary No growth after 24 hours. 07/10/20 22:43 Blood - Venous Blood Culture - Preliminary No growth after 48 hours. 07/10/20 22:39 Blood - Venous Blood Culture - Preliminary No growth after 48 hours. 07/11/20 Unknown Urine clean catch - Clean Catch Midstream Urine Culture - Final Assessment and Plan (1) Pneumonia due to COVID-19 virus: Status: Acute (2) Weakness: Status: Acute (3) MAURO (acute kidney injury): Status: Acute (4) COVID-19: Status: Acute Assessment and Plan: 75-year-old male who presents to the hospital for severe some weakness and recently diagnosed COVID-19 COVID-19 pneumonia Acute hypoxic respiratory failure currently on high-flow and non-rebreather CT shows bilateral patchy ground-glass opacities continue IV dexamethasone convalscent plasma ordered id consult for possible remdesivir continue supportive management Mild rhabdomyolysis resolving MAURO resolving received IV fluid monitor kidney function DVT prophylaxis: Lovenox
--- NOTE | 2020-07-15 14:21 | MHC.CM.PN ---
DP Male Covid+ initial DP home no services. Pt is now requiring oxygen. He is also confused. A HCP was documented and is on Chart. CM will follow.
--- NOTE | 2020-07-15 16:05 | P.CNID_ITS ---
History of Present Illness Data of Consult Service Date: 07/15/20 Requesting physician: Tomas Williamson Primary Care Provider: Unknown Physician HPI Reason for consult: COVID He has weakness over last two weeks After almost a week of symptoms he had COVID test positive 6 days ago He is now on HFNC at 90% Review of Systems Review of Systems: Yes Unobtainable due to mental condition Constitutional: Constitutional: Reports weakness Neurologic: Reports system reviewed and no additional complaints, except as documented and Reports weakness PMFSH Past Medical History Medical History BPH w urinary obs/LUTS Complicated urinary tract infection Social History Social History Household Members: Family Housing: Unknown / Unable to assess Do you presently have visiting nurse or other home services: No Smoking Status: Never smoker Smoked in Last 30 Days: No Use of substances other than those prescribed or required for medical reasons: No Currently Displaying Signs/Symptoms of Drug Intoxication Withdrawal: No Have you been hit, kicked, punched, or otherwise hurt by someone within the past year? If so, by whom?: No Do you feel safe in your current relationship?: No Is there a partner from a previous relationship who is making you feel unsafe now?: No Are you made to feel afraid or neglected: No Advance Directives: No Advance Directives Information Provided: Yes Do you have thoughts of harming others: None Do you have a plan to hurt others: No Plan Recently lost weight without trying: No service: Yes Current occupational status: retired [employer] Allergies Allergy/AdvReac Type Severity Reaction Status Date / Time No Known Allergies Allergy Verified 07/10/20 20:47 [No Known Allergies*] Home Medications Medication Instructions Recorded Confirmed Type bromfenac 0.09 % eye drops 0.09 drp OPHTHALMIC (EYE) DAILY 05/17/20 07/11/20 History irbesartan 150 2 tab PO DAILY 05/17/20 07/11/20 History mg-hydrochlorothiazide 12.5 mg tablet oxybutynin chloride 15 mg 15 mg PO DAILY 05/17/20 07/11/20 History tablet,extended release 24 hr tamsulosin 0.4 mg capsule 0.4 mg PO DAILY 05/17/20 07/11/20 History Physical Exam Vital Signs: Vital Signs: Last Vital Signs Temp 98.3 F 07/15/20 15:38 Pulse 94 07/15/20 15:38 Resp 19 07/15/20 15:38 BP 120/56 L 07/15/20 15:38 Pulse Ox 90 L 07/15/20 15:38 Body Mass Index 34.7 Const: General: ill appearing HENMT: Head: Yes normal to inspection Resp: Effort & Inspection: decreased respiratory effort Cardio: Rate: tachycardic Rhythm: regular rhythm GI: Inspection: Yes normal to inspection Extrem: General: Yes normal to inspection Assessment and Plan (1) Pneumonia due to COVID-19 virus: Status: Acute Continue oxygen No Remdesivir Steroids as needed Results Labs CBC & Chem 7: 08/02/20 05:39 08/02/20 05:39 Labs: Short CBC 07/15/20 Range/Units 09:00 WBC 7.0 (4.8-10.8) X10*3/uL Hgb 13.5 L (14.0-18.0) g/dl Hct 41.0 L (42-52) % Plt Count 168 D (160-400) X10*3/uL BMP 07/15/20 09:00 Sodium 136 Potassium 4.0 Chloride 103 Carbon Dioxide 25 BUN 25 H Creatinine 0.81 Calcium 7.4 L Microbiology Microbiology Results: Microbiology 07/14/20 06:55 Blood - Venous Blood Culture - Preliminary No growth after 24 hours. 07/14/20 07:02 Blood - Venous Blood Culture - Preliminary No growth after 24 hours. 07/10/20 22:43 Blood - Venous Blood Culture - Preliminary No growth after 48 hours. 07/10/20 22:39 Blood - Venous Blood Culture - Preliminary No growth after 48 hours. 07/11/20 Unknown Urine clean catch - Clean Catch Midstream Urine Culture - Final
[2020-07-15] MEDS: Acetaminophen 325 MG TABLET 650 MG PO (16:17)
--- NOTE | 2020-07-15 19:17 | PC.NURSE ---
Pt pulled of NRB. O2 sat remaining 90%+ on continuous O2 monitor for a couple hrs. Pt o2 sat sslowly started to decrease to mid 80s. Pt placed on NRB, maintaining 02 sat of 92%+.
[2020-07-16] VITALS (11 sets, daily range): BP systolic 118–153; BP diastolic 65–86; PULSE 72–121; RESP 18–20; TEMP 36.2–38.4; O2SAT 90–94
[2020-07-16] MEDS: Acetaminophen 325 MG TABLET 650 MG PO ×2 (02:10→19:37)
[2020-07-16] MEDS: Enoxaparin Sodium 40 MG/0.4 ML SYRINGE SUBCUT (06:11)
[2020-07-16] MEDS: 0.9 % Sodium Chloride Flush 3 ML SYRINGE IVFLUSH ×3 (07:27→19:29)
[2020-07-16] MEDS: Tamsulosin HCL 0.4 MG CAPSULE PO (07:29)
--- NOTE | 2020-07-16 14:05 | P.PNIM_ITS ---
Subjective Subjective Date of Service: 07/16/20 Interval History: Patient seen and examined at bedside patient reported dyspnea continues to require high-flow non-rebreather Constitutional Constitutional: Reports weakness Neurologic Neurologic: Reports system reviewed and no additional complaints, except as documented and Reports weakness Physical Exam Vital Signs: Vital Signs: Last Vital Signs Temp 97.4 F 07/16/20 11:25 Pulse 75 07/16/20 11:25 Resp 20 07/16/20 11:29 BP 118/66 07/16/20 11:25 Pulse Ox 93 07/16/20 11:25 Body Mass Index 34.7 Const: General: cooperative, no acute distress, ill appearing, poor hygiene and tired appearing Nutritional Appearance: obese Orientation/consciousness: patient oriented x3 Eyes: General: appearance normal, both eyes and all related structures Resp: Effort & Inspection: normal respiratory effort and able to speak in complete sentences Auscultation: rales Cardio: Rate: regular rate Rhythm: regular rhythm GI: Palpation (GI): Soft to palpation Auscultation: normal bowel sounds Skin: General skin exam: no rashes or lesions noted Neuro: General: patient oriented x3 Cognition (Neuro): normal cognition Extrem: General: Yes normal to inspection and Yes no pedal edema Objective Data Current Medications Generic Name Dose Route Start Last Admin Trade Name Freq PRN Reason Stop Dose Admin Acetaminophen 650 mg 07/11/20 05:29 07/16/20 02:10 Acetaminophen 325 Mg Tablet PO 650 mg Q6H PRN Administration Pain, Mild (Pain Scale 1-3) Dexamethasone Sodium Phosphate 6 mg 07/14/20 06:30 07/16/20 07:28 Dexamethasone Sod Phosphate/Pf 10 Mg/Ml Vial IVPUSH 6 mg DAILY KARIN Administration Enoxaparin Sodium 40 mg 07/11/20 05:30 07/16/20 06:11 Enoxaparin Sodium 40 Mg/0.4 Ml Syringe SUBCUT 40 mg Q24H KARIN Administration Hydrochlorothiazide 25 mg 07/11/20 09:00 Hydrochlorothiazide 25 Mg Tablet PO DAILY COUNTS INCLUDE 234 BEDS AT THE [facility] Protocol Non-Formulary Medication 0.09 drop 07/11/20 09:00 Bromfenac EYE-BOTH DAILY KARIN Ondansetron HCl 4 mg 07/11/20 05:29 Ondansetron Hcl 4 Mg/2 Ml Vial IVPUSH Q8H PRN Nausea and Vomiting Oxybutynin Chloride 15 mg 07/11/20 09:00 07/16/20 07:28 Oxybutynin Chloride Er 5 Mg Tab.Er.24 PO 15 mg DAILY KARIN Administration Sodium Chloride 3 ml 07/11/20 08:00 07/16/20 07:27 0.9 % Sodium Chloride Flush 3 Ml Syringe IVFLUSH 3 ml QSHIFT KARIN Administration Tamsulosin HCl 0.4 mg 07/11/20 09:00 07/16/20 07:29 Tamsulosin Hcl 0.4 Mg Capsule PO 0.4 mg DAILY KARIN Administration Valsartan 160 mg 07/11/20 09:00 Valsartan 160 Mg Tablet PO DAILY COUNTS INCLUDE 234 BEDS AT THE [facility] Protocol Labs CBC & Chem 7: 07/15/20 09:00 07/15/20 09:00 Microbiology Microbiology Results: Microbiology 07/14/20 06:55 Blood - Venous Blood Culture - Preliminary No growth after 48 hours. 07/14/20 07:02 Blood - Venous Blood Culture - Preliminary No growth after 48 hours. 07/10/20 22:43 Blood - Venous Blood Culture - Final No growth after 5 days. 07/10/20 22:39 Blood - Venous Blood Culture - Final No growth after 5 days. 07/11/20 Unknown Urine clean catch - Clean Catch Midstream Urine Culture - Final Assessment and Plan (1) Pneumonia due to COVID-19 virus: Status: Acute (2) Weakness: Status: Acute (3) MAURO (acute kidney injury): Status: Acute (4) COVID-19: Status: Acute Assessment and Plan: 75-year-old male who presents to the hospital for severe some weakness and recently diagnosed COVID-19 COVID-19 pneumonia Acute hypoxic respiratory failure currently on high-flow CT shows bilateral patchy ground-glass opacities continue IV dexamethasone convalscent plasma ordered have not recieved yet id consulted recommended no remdesivir as out of window. continue supportive management Mild rhabdomyolysis resolving MAURO resolved received IV fluid monitor kidney function DVT prophylaxis: Lovenox
--- NOTE | 2020-07-16 15:46 | PC.NURSE ---
At rest patient maintains spo2 90-93% on high flow at 95% 50L/min. During care patient destats to 78%-83% and requires NRB in addition to high flow to maintain spo2>88%.
[2020-07-16 20:42] LABS: MANUAL DIFF FLAG NO
[2020-07-16 20:43] LABS: Basophils Percent Auto 0.1 % (0-2); Hematocrit 43.5 % (42-52); Hemoglobin 14.5 g/dl (14.0-18.0); Imm Gran Abs Auto 0.14 X10*3/uL (0.00-0.03); Imm Gran Pct Auto 1.2 % (0.0-0.4); Lymphocytes Absolute Auto 1.5 X10*3/uL (1.2-4.9); Lymphocytes Percent Auto 12.6 % (20-40); Mean Corpuscular HGB Conc 33.3 g/dl (31.0-36.0); Mean Corpuscular Hemoglobin 30.1 pg (27.0-33.0); Mean Corpuscular Volume 90.2 fL (80-98); Mean Platelet Volume 10.2 fL (9.4-12.4); Monocytes Absolute Auto 0.9 X10*3/uL (0.1-1.2); Monocytes Percent Auto 7.4 % (2-11); Neutrophils Absolute Auto 9.1 X10*3/uL (2.0-8.3); Neutrophils Percent Auto 78.7 % (45-73); Platelet Count 192 X10*3/uL (160-400); Red Blood Count 4.82 X10*6/uL (4.60-5.80); Red Cell Distribution Width 15.1 % (11.0-16.0); White Blood Count 11.6 X10*3/uL (4.8-10.8)
[2020-07-16 21:28] LABS: Lactic Acid 2.2 mmol/L (0.5-2.0)
[2020-07-16] MEDS: Lactated Ringers 1,000 ML 100 ML IVCONT (21:50)
[2020-07-16] MEDS: Piperacillin Sodium/Tazobactam 3.375 GM in 0.9 % Sodium Chloride 50 ML IV (21:51)
[2020-07-16 22:40] LABS: Reflex Lactate? Lactic Acid Added
[2020-07-16] MEDS: vancomycin HCL 1,000 MG in 0.9 % Sodium Chloride 250 ML 270 MG IV (22:48)
[2020-07-17] VITALS (13 sets, daily range): BP systolic 118–162; BP diastolic 64–80; PULSE 75–118; RESP 18–26; TEMP 36.4–37.1; O2SAT 90–95; BMI 33.8
[2020-07-17 00:13] LABS: ~Lactic Acid-LAB USE ONLY 2.2 mmol/L (0.5-2.0)
[2020-07-17 01:17] LABS: Reflex Lactate? 2 Y
[2020-07-17 02:12] LABS: ~Lactic Acid-LAB USE ONLY 2.2 mmol/L (0.5-2.0)
[2020-07-17] MEDS: Piperacillin Sodium/Tazobactam 3.375 GM in 0.9 % Sodium Chloride 50 ML IV ×4 (04:15→21:58)
[2020-07-17] MEDS: Enoxaparin Sodium 40 MG/0.4 ML SYRINGE SUBCUT (04:42)
[2020-07-17 04:48] LABS: Glucose Urine UA NEG (NEG); Leukocyte Esterase Urine NEG (NEG); Nitrite Urine POS (NEG); Specific Gravity - Urine 1.025 (1.005-1.025); Urine Blood NEG (NEG); Urine Ketones NEG (NEG); Urine Protein 1+ MG/DL (NEG-TRACE)
[2020-07-17 04:52] LABS: Appearance Urine HAZY; Color Urine AMBER
[2020-07-17 04:55] LABS: Amorphous Sediment Urine 1+ /LPF; Bacteria Urine 1+ /LPF; Mucus Urine 2+ /LPF; RBC Urine 0 /HPF (0); Squamous Epithelial Cell Urine TRACE /LPF
--- NOTE | 2020-07-17 05:17 | MHC.PIE ---
P.URINE POSITIVE NITRITES I.REPORTED TO .PT ON VANCO AND ZOSYN CURRENTLY.NO NEW ODERS. E.CONT TO MONITOR
--- NOTE | 2020-07-17 06:42 | PM.EVENT ---
Event Note Date of Service: 07/17/20 Event Note: Patient developed a fever around 8:00 p.m., as well as tachycardia. Workup for sepsis was done, patient has leukocytosis, elevated lactic acid. UA positive for nitrates as well as small leukocytosis. Started on broad-spectrum antibiotics, blood in urine cultures ordered.
[2020-07-17] MEDS: Tamsulosin HCL 0.4 MG CAPSULE PO (08:27)
[2020-07-17] MEDS: 0.9 % Sodium Chloride Flush 3 ML SYRINGE IVFLUSH (08:29)
[2020-07-17] MEDS: vancomycin HCL 1,000 MG in 0.9 % Sodium Chloride 250 ML 270 MG IV ×2 (11:14→22:39)
[2020-07-17 12:45] LABS: INTERNATIONAL NORM RATIO 1.3 (0.9-1.1)
[2020-07-17 12:47] LABS: Partial Thromboplastin Time 31.3 SEC (24.1-38.0)
--- NOTE | 2020-07-17 12:50 | MHC.CM.PN ---
Patient continues to be on high flow O2, not tolerating O2 wean. Patient is on IV Dexamethasone. Discharge plan is home no services. Patient will set up own transportation. CM will continue to follow for discharge needs.
[2020-07-17] MEDS: Enoxaparin Sodium 80 MG/0.8 ML SYRINGE 65 MG SUBCUT (14:35)
[2020-07-17] MEDS: Throat Lozenge, Medicated LOZENGE 1 LOZENGE MUCOUS MEM (14:37)
[2020-07-17] MEDS: Lactated Ringers 1,000 ML 100 ML IVCONT ×2 (14:37→20:36)
--- NOTE | 2020-07-17 15:39 | HO.PM.IMPN ---
Subjective Subjective Date of Service: 07/17/20 Interval History: Patient seen and examined at bedside patient reported dyspnea continues to require high-flow non-rebreather Spiked fever last night Constitutional Constitutional: Reports weakness Neurologic Neurologic: Reports system reviewed and no additional complaints, except as documented and Reports weakness Physical Exam Vital Signs: Vital Signs: Last Vital Signs Temp 97.5 F 07/17/20 11:59 Pulse 84 07/17/20 11:59 Resp 24 H 07/17/20 12:22 BP 118/64 07/17/20 11:59 Pulse Ox 95 07/17/20 11:59 Body Mass Index 33.8 Const: General: cooperative, no acute distress, ill appearing, poor hygiene and tired appearing Nutritional Appearance: obese Orientation/consciousness: patient oriented x3 Eyes: General: appearance normal, both eyes and all related structures Resp: Effort & Inspection: normal respiratory effort and able to speak in complete sentences Auscultation: rales Cardio: Rate: regular rate Rhythm: regular rhythm GI: Palpation (GI): Soft to palpation Auscultation: normal bowel sounds Skin: General skin exam: no rashes or lesions noted Neuro: General: patient oriented x3 Cognition (Neuro): normal cognition Extrem: General: Yes normal to inspection and Yes no pedal edema Objective Data Current Medications Generic Name Dose Route Start Last Admin Trade Name Erikq PRN Reason Stop Dose Admin Acetaminophen 650 mg 07/11/20 05:29 07/16/20 19:37 Acetaminophen 325 Mg Tablet PO 650 mg Q6H PRN Administration Pain, Mild (Pain Scale 1-3) Benzocaine 1 lozenge 07/17/20 14:28 07/17/20 14:37 Throat Lozenge, Medicated Lozenge MUCOUS MEM 1 lozenge Q2H PRN Administration Sore Throat Dexamethasone Sodium Phosphate 6 mg 07/14/20 06:30 07/17/20 08:28 Dexamethasone Sod Phosphate/Pf 10 Mg/Ml Vial IVPUSH 6 mg DAILY KARIN Administration Enoxaparin Sodium 105 mg 07/17/20 22:00 Enoxaparin Sodium 120 Mg/0.8 Ml Syringe 1 mg/kg (105 mg) SUBCUT Q12H KARIN Hydrochlorothiazide 25 mg 07/11/20 09:00 Hydrochlorothiazide 25 Mg Tablet PO DAILY KARIN Protocol Lactated Ringer's 1,000 mls @ 100 mls/hr 07/16/20 21:45 07/17/20 14:37 Lr IVCONT 100 mls/hr .Q10H KARIN Administration Piperacillin Sod/Tazobactam 50 mls @ 100 mls/hr 07/16/20 22:00 07/17/20 09:23 Sod 3.375 gm/ Sodium Chloride IV Infused Q6H KARIN Infusion Vancomycin HCl 1,000 mg/ 270 mls @ 270 mls/hr 07/16/20 23:00 07/17/20 12:35 Sodium Chloride IV Infused Q12H KARIN Infusion Non-Formulary Medication 0.09 drop 07/11/20 09:00 Bromfenac EYE-BOTH DAILY [facility] Ondansetron HCl 4 mg 07/11/20 05:29 Ondansetron Hcl 4 Mg/2 Ml Vial IVPUSH Q8H PRN Nausea and Vomiting Oxybutynin Chloride 15 mg 07/11/20 09:00 07/17/20 08:27 Oxybutynin Chloride Er 5 Mg Tab.Er.24 PO 15 mg DAILY [facility] Administration Pharmacy Consult 1 each 07/16/20 21:32 Consult Rx Vancomycin Dosing MISCELLANE DAILY PRN Consult order Sodium Chloride 3 ml 07/11/20 08:00 07/17/20 08:29 0.9 % Sodium Chloride Flush 3 Ml Syringe IVFLUSH 3 ml QSHIFT [facility] Administration Tamsulosin HCl 0.4 mg 07/11/20 09:00 07/17/20 08:27 Tamsulosin Hcl 0.4 Mg Capsule PO 0.4 mg DAILY [facility] Administration Valsartan 160 mg 07/11/20 09:00 Valsartan 160 Mg Tablet PO DAILY [facility] Protocol Labs CBC & Chem 7: 07/16/20 20:38 07/15/20 09:00 Microbiology Microbiology Results: Microbiology 07/14/20 06:55 Blood - Venous Blood Culture - Preliminary No growth after 48 hours. 07/14/20 07:02 Blood - Venous Blood Culture - Preliminary No growth after 48 hours. 07/10/20 22:43 Blood - Venous Blood Culture - Final No growth after 5 days. 07/10/20 22:39 Blood - Venous Blood Culture - Final No growth after 5 days. 07/11/20 Unknown Urine clean catch - Clean Catch Midstream Urine Culture - Final Assessment and Plan (1) Pneumonia due to COVID-19 virus: Status: Acute (2) Weakness: Status: Acute (3) MAURO (acute kidney injury): Status: Acute (4) COVID-19: Status: Acute Assessment and Plan: 75-year-old male who presents to the hospital for severe some weakness and recently diagnosed COVID-19 COVID-19 pneumonia Acute hypoxic respiratory failure currently on high-flow 100% CT shows bilateral patchy ground-glass opacities continue IV dexamethasone convalscent plasma ordered have not recieved yet id consulted recommended no remdesivir as out of window. continue supportive management Spiked fever again last night UA was positive UTI Continue IV antibiotic Follow-up cultures Mild rhabdomyolysis resolving MAURO resolved received IV fluid monitor kidney function DVT prophylaxis: Lovenox
[2020-07-17] MEDS: Enoxaparin Sodium 120 MG/0.8 ML SYRINGE 105 MG SUBCUT (21:59)
[2020-07-18] VITALS (10 sets, daily range): BP systolic 140–171; BP diastolic 68–83; PULSE 63–107; RESP 20–24; TEMP 36.3–36.8; O2SAT 90–96
[2020-07-18] MEDS: Piperacillin Sodium/Tazobactam 3.375 GM in 0.9 % Sodium Chloride 50 ML IV ×4 (03:50→22:00)
[2020-07-18 06:15] LABS: MANUAL DIFF FLAG NO
[2020-07-18] MEDS: Lactated Ringers 1,000 ML 100 ML IVCONT ×2 (06:21→22:35)
[2020-07-18 06:23] LABS: Basophils Percent Auto 0.3 % (0-2); Hematocrit 41.5 % (42-52); Hemoglobin 13.3 g/dl (14.0-18.0); Imm Gran Abs Auto 0.49 X10*3/uL (0.00-0.03); Imm Gran Pct Auto 4.3 % (0.0-0.4); Lymphocytes Absolute Auto 1.8 X10*3/uL (1.2-4.9); Lymphocytes Percent Auto 15.4 % (20-40); Mean Corpuscular Hemoglobin 29.6 pg (27.0-33.0); Mean Corpuscular Volume 92.2 fL (80-98); Mean Platelet Volume 10.1 fL (9.4-12.4); Monocytes Absolute Auto 0.6 X10*3/uL (0.1-1.2); Monocytes Percent Auto 5.6 % (2-11); Neutrophils Absolute Auto 8.6 X10*3/uL (2.0-8.3); Neutrophils Percent Auto 74.4 % (45-73); Platelet Count 191 X10*3/uL (160-400); Red Cell Distribution Width 15.1 % (11.0-16.0); White Blood Count 11.5 X10*3/uL (4.8-10.8)
[2020-07-18 07:06] LABS: Anion Gap 12 (12-20); Blood Urea Nitrogen 27 mg/dL (9-16); Calcium 7.7 mg/dL (8.4-10.2); Carbon Dioxide 29 mmol/L (22-29); Chloride 108 mmol/L (96-108); Creatinine Clr Calc Pharmacy 124.1; Estimated Glomerular Filt Rate > 60; Glucose Random 119 mg/dL (60-115); Potassium 3.8 mmol/l (3.3-5.1); Sodium 145 mmol/L (135-145)
[2020-07-18] MEDS: Enoxaparin Sodium 120 MG/0.8 ML SYRINGE 105 MG SUBCUT ×2 (10:07→22:00)
[2020-07-18] MEDS: 0.9 % Sodium Chloride Flush 3 ML SYRINGE IVFLUSH (10:08)
[2020-07-18] MEDS: Tamsulosin HCL 0.4 MG CAPSULE PO (10:09)
[2020-07-18] MEDS: Throat Lozenge, Medicated LOZENGE 1 LOZENGE MUCOUS MEM (10:18)
[2020-07-18 10:41] LABS: Vancomycin Trough 7.6 mcg/mL (10.0-20.0)
--- NOTE | 2020-07-18 12:26 | MHC.CLN ---
RE: CONSULT PO INTAKE POOR X 3 DAYS WILL START ENSURE TO INCREASE KC[facility] THOMAS PREVIOUSLY IN PLACE TO SUPPORT WOUND HEALING FOLLOWING
--- NOTE | 2020-07-18 14:13 | HO.PM.IMPN ---
Subjective Subjective Date of Service: 07/18/20 Interval History: Patient seen and examined at bedside patient reported dyspnea continues to require high-flow and non-rebreather Constitutional Constitutional: Reports weakness Neurologic Neurologic: Reports system reviewed and no additional complaints, except as documented and Reports weakness Physical Exam Vital Signs: Vital Signs: Last Vital Signs Temp 97.7 F 07/18/20 12:00 Pulse 77 07/18/20 07:53 Resp 24 H 07/18/20 12:00 BP 171/83 H 07/18/20 12:00 Pulse Ox 95 07/18/20 07:53 Body Mass Index 33.8 Const: General: cooperative, no acute distress, ill appearing, poor hygiene and tired appearing Nutritional Appearance: obese Orientation/consciousness: patient oriented x3 Eyes: General: appearance normal, both eyes and all related structures Resp: Effort & Inspection: normal respiratory effort and able to speak in complete sentences Auscultation: rales Cardio: Rate: regular rate Rhythm: regular rhythm GI: Palpation (GI): Soft to palpation Auscultation: normal bowel sounds Skin: General skin exam: no rashes or lesions noted Neuro: General: patient oriented x3 Cognition (Neuro): normal cognition Extrem: General: Yes normal to inspection and Yes no pedal edema Objective Data Current Medications Generic Name Dose Route Start Last Admin Trade Name Freq PRN Reason Stop Dose Admin Acetaminophen 650 mg 07/11/20 05:29 07/16/20 19:37 Acetaminophen 325 Mg Tablet PO 650 mg Q6H PRN Administration Pain, Mild (Pain Scale 1-3) Benzocaine 1 lozenge 07/17/20 14:28 07/18/20 10:18 Throat Lozenge, Medicated Lozenge MUCOUS MEM 1 lozenge Q2H PRN Administration Sore Throat Dexamethasone Sodium Phosphate 6 mg 07/14/20 06:30 07/18/20 10:08 Dexamethasone Sod Phosphate/Pf 10 Mg/Ml Vial IVPUSH 6 mg DAILY KARIN Administration Enoxaparin Sodium 105 mg 07/17/20 22:00 07/18/20 10:07 Enoxaparin Sodium 120 Mg/0.8 Ml Syringe 1 mg/kg (105 mg) 105 mg SUBCUT Administration Q12H KARIN Hydrochlorothiazide 25 mg 07/11/20 09:00 Hydrochlorothiazide 25 Mg Tablet PO DAILY KARIN Protocol Lactated Ringer's 1,000 mls @ 100 mls/hr 07/16/20 21:45 07/18/20 06:21 Lr IVCONT 100 mls/hr .Q10H [facility] Administration Piperacillin Sod/Tazobactam 50 mls @ 100 mls/hr 07/16/20 22:00 07/18/20 11:04 Sod 3.375 gm/ Sodium Chloride IV Infused Q6H KARIN Infusion Vancomycin HCl 1,500 mg/ 280 mls @ 186.667 mls/hr 07/18/20 12:00 07/18/20 12:44 Sodium Chloride IV 186.67 mls/hr Q12H [facility] Administration Non-Formulary Medication 0.09 drop 07/11/20 09:00 Bromfenac EYE-BOTH DAILY [facility] Ondansetron HCl 4 mg 07/11/20 05:29 Ondansetron Hcl 4 Mg/2 Ml Vial IVPUSH Q8H PRN Nausea and Vomiting Oxybutynin Chloride 15 mg 07/11/20 09:00 07/18/20 10:09 Oxybutynin Chloride Er 5 Mg Tab.Er.24 PO 15 mg DAILY [facility] Administration Pharmacy Consult 1 each 07/16/20 21:32 Consult Rx Vancomycin Dosing MISCELLANE DAILY PRN Consult order Sodium Chloride 3 ml 07/11/20 08:00 07/18/20 10:08 0.9 % Sodium Chloride Flush 3 Ml Syringe IVFLUSH 3 ml QSHIFT [facility] Administration Tamsulosin HCl 0.4 mg 07/11/20 09:00 07/18/20 10:09 Tamsulosin Hcl 0.4 Mg Capsule PO 0.4 mg DAILY [facility] Administration Valsartan 160 mg 07/11/20 09:00 Valsartan 160 Mg Tablet PO DAILY [facility] Protocol Labs CBC & Chem 7: 07/18/20 05:41 07/18/20 05:41 Microbiology Microbiology Results: Microbiology 07/17/20 04:30 Urine clean catch - Clean Catch Midstream Urine Culture - Final No growth. 07/16/20 20:37 Blood - Venous Blood Culture - Preliminary No growth after 24 hours. 07/16/20 20:37 Blood - Venous Blood Culture - Preliminary No growth after 24 hours. 07/14/20 06:55 Blood - Venous Blood Culture - Preliminary No growth after 48 hours. 07/14/20 07:02 Blood - Venous Blood Culture - Preliminary No growth after 48 hours. 07/10/20 22:43 Blood - Venous Blood Culture - Final No growth after 5 days. 07/10/20 22:39 Blood - Venous Blood Culture - Final No growth after 5 days. 07/11/20 Unknown Urine clean catch - Clean Catch Midstream Urine Culture - Final Assessment and Plan (1) Pneumonia due to COVID-19 virus: Status: Acute (2) Weakness: Status: Acute (3) MAURO (acute kidney injury): Status: Acute (4) COVID-19: Status: Acute Assessment and Plan: 75-year-old male who presents to the hospital for severe some weakness and recently diagnosed COVID-19 COVID-19 pneumonia Acute hypoxic respiratory failure currently on high-flow 100% CT shows bilateral patchy ground-glass opacities continue IV dexamethasone convalscent plasma ordered have not recieved yet id consulted recommended no remdesivir as out of window. continue supportive management UTI less likely UA shows nitrite Urine culture shows no growth Pressure ulcers Air loss bed ordered Frequent repositioning Wound care consulted Continue wound care Mild rhabdomyolysis resolving MAURO resolved received IV fluid monitor kidney function DVT prophylaxis: Lovenox
--- NOTE | 2020-07-18 18:11 | HO.WOUNDCONS ---
History of Present Illness Data of Consult Service Date: 07/18/20 Requesting physician: Tomas Williamson Primary Care Provider: Unknown Physician HPI Reason for consult: buttock wounds 75 year old male with Covid and onoing respiratory syptoms here for several weeks and initially with small breakdown of skin on buttock areas which has progressed. pt on high flow oxygen and steroids. Triad cream being used and and air mattress. unfortunately the wound has progressed with some eschar forming. Review of Systems Review of Systems: Yes all other systems are reviewed and are negative and Unobtainable due to mental condition Constitutional: Constitutional: Reports weakness Neurologic: Reports system reviewed and no additional complaints, except as documented and Reports weakness [facility] Medical History BPH w urinary obs/LUTS Complicated urinary tract infection Social History Household Members: Family Housing: Unknown / Unable to assess Do you presently have visiting nurse or other home services: No Smoking Status: Never smoker Smoked in Last 30 Days: No Use of substances other than those prescribed or required for medical reasons: No Currently Displaying Signs/Symptoms of Drug Intoxication Withdrawal: No Have you been hit, kicked, punched, or otherwise hurt by someone within the past year? If so, by whom?: No Do you feel safe in your current relationship?: No Is there a partner from a previous relationship who is making you feel unsafe now?: No Are you made to feel afraid or neglected: No Advance Directives: No Advance Directives Information Provided: Yes Do you have thoughts of harming others: None Do you have a plan to hurt others: No Plan Recently lost weight without trying: No service: Yes Current occupational status: retired Meds Allergies Allergy/AdvReac Type Severity Reaction Status Date / Time No Known Allergies Allergy Verified 07/10/20 20:47 [No Known Allergies*] Home Medications Medication Instructions Recorded Confirmed Type bromfenac 0.09 % eye drops 0.09 drp OPHTHALMIC (EYE) DAILY 05/17/20 07/11/20 History irbesartan 150 2 tab PO DAILY 05/17/20 07/11/20 History mg-hydrochlorothiazide 12.5 mg tablet oxybutynin chloride 15 mg 15 mg PO DAILY 05/17/20 07/11/20 History tablet,extended release 24 hr tamsulosin 0.4 mg capsule 0.4 mg PO DAILY 05/17/20 07/11/20 History Physical Exam Vital Signs and Narrative: Vital Signs: Last Vital Signs Temp 97.7 F 07/18/20 15:41 Pulse 72 07/18/20 15:41 Resp 24 H 07/18/20 15:41 BP 142/73 H 07/18/20 15:41 Pulse Ox 93 07/18/20 15:41 Body Mass Index 33.8 Skin: Other: the buttock wounds on adjacent cheeks has area of skin breakdown stage I to II with some unstageable eschar in some areas. pt able to move around a little but short of breath when rotating so evaluation stopped Results Labs CBC and Chem 7: 07/18/20 05:41 07/18/20 05:41 Labs: Laboratory Results - last 24 hr 07/18/20 07/18/20 07/18/20 05:41 05:41 10:03 MCV 92.2 MCH 29.6 MCHC 32.0 RDW 15.1 Plt Count 191 MPV 10.1 Immature Gran % (Auto) 4.3 H Neut % (Auto) 74.4 H Lymph % (Auto) 15.4 L Perkins % (Auto) 5.6 Eos % (Auto) 0.0 Baso % (Auto) 0.3 Lymph # (Auto) 1.8 Perkins # (Auto) 0.6 Eos # (Auto) 0.0 Baso # (Auto) 0.0 Abs Immat Gran (auto) 0.49 H Absolute Neuts (auto) 8.6 H Absolute Nucleated RBC 0.000 Nucleated RBC % (auto) 0.0 Anion Gap 12 Estim Creat Clear Calc 124.1 Estimated GFR > 60 Random Glucose 119 H Calcium 7.7 L Vancomycin Trough 7.6 L Assessment and Plan (1) Pneumonia due to COVID-19 virus: Status: Acute (2) Weakness: Status: Acute (3) MAURO (acute kidney injury): Status: Acute (4) COVID-19: Status: Acute 75-year-old male who presents to the hospital for severe some weakness and recently diagnosed COVID-19- treated with steroids and high flow oxygen pressure/shear injury to buttocks area bilaterally - some areas progressed to stage II and then to unstageable eschars no evidence of infection. priority is of course the Covid treatment and ensure ABC resuscitation. Cont with triad to the open areas of buttock and eschar, barrier cream to surrounding at risk tissue frequent reposition and air matrress great increase nutrition protein when safe to eat well - protein supplements for wound care Pressure ulcers
[2020-07-19] VITALS (14 sets, daily range): BP systolic 137–171; BP diastolic 63–84; PULSE 65–96; RESP 18–28; TEMP 36.3–36.9; O2SAT 84–98
[2020-07-19] MEDS: Piperacillin Sodium/Tazobactam 3.375 GM in 0.9 % Sodium Chloride 50 ML IV ×2 (03:57→09:04)
[2020-07-19 07:02] LABS: Hematocrit 44.7 % (42-52); Hemoglobin 14.2 g/dl (14.0-18.0); Mean Corpuscular HGB Conc 31.8 g/dl (31.0-36.0); Mean Corpuscular Hemoglobin 29.6 pg (27.0-33.0); Mean Corpuscular Volume 93.3 fL (80-98); Mean Platelet Volume 10.4 fL (9.4-12.4); Platelet Count 176 X10*3/uL (160-400); Red Blood Count 4.79 X10*6/uL (4.60-5.80); Red Cell Distribution Width 14.8 % (11.0-16.0); White Blood Count 10.9 X10*3/uL (4.8-10.8)
[2020-07-19 07:18] LABS: Anion Gap 14 (12-20); Blood Urea Nitrogen 23 mg/dL (9-16); Calcium 7.7 mg/dL (8.4-10.2); Carbon Dioxide 28 mmol/L (22-29); Chloride 108 mmol/L (96-108); Creatinine Clr Calc Pharmacy 124.1; Estimated Glomerular Filt Rate > 60; Glucose Random 93 mg/dL (60-115); Potassium 4.3 mmol/l (3.3-5.1); Sodium 146 mmol/L (135-145)
[2020-07-19] MEDS: Tamsulosin HCL 0.4 MG CAPSULE PO (08:57)
[2020-07-19] MEDS: Enoxaparin Sodium 120 MG/0.8 ML SYRINGE 105 MG SUBCUT ×2 (08:59→21:46)
[2020-07-19] MEDS: 0.9 % Sodium Chloride Flush 3 ML SYRINGE IVFLUSH ×3 (08:59→21:47)
[2020-07-19] MEDS: Lactated Ringers 1,000 ML 100 ML IVCONT (09:00)
[2020-07-19 09:01] LABS: Atypical Lymph Absolute Manual 0.1 x10*3/uL; Atypical Lymphs Percent Manual 1 % (0-6); Band Neutrophils Percent 12 % (3-5); Lymphocytes Percent Manual 9 % (20-40); Metamyelocytes Absolute 0.1 X10*3/uL; Metamyelocytes Percent 1 %; Monocytes Absolute Manual 0.7 X10*3/uL (0.0-1.2); Monocytes Percent Manual 6 % (2-11); Neutrophils Percent Manual 71 % (45-73); RBC Morphology NOTED
[2020-07-19 09:02] LABS: Acanthocytes 1+; Platelet Estimate NORMAL (NORMAL); Platelet Morphology Comment NORMAL
--- NOTE | 2020-07-19 13:52 | MHC.CM.PN ---
DP Initially was home no services. Pt will require STR. An attempt to contact S.O.'s HCP for facility preferences. CM will follow.
--- NOTE | 2020-07-19 15:09 | HO.PM.IMPN ---
Subjective Subjective Date of Service: 07/19/20 Interval History: Patient seen and examined at bedside patient reported dyspnea continues to require high-flow Constitutional Constitutional: Reports weakness Neurologic Neurologic: Reports system reviewed and no additional complaints, except as documented and Reports weakness Physical Exam Vital Signs: Vital Signs: Last Vital Signs Temp 97.8 F 07/19/20 12:22 Pulse 69 07/19/20 12:22 Resp 18 07/19/20 12:31 BP 137/63 07/19/20 12:22 Pulse Ox 94 07/19/20 12:22 Body Mass Index 33.8 Const: General: cooperative, no acute distress, ill appearing, poor hygiene and tired appearing Nutritional Appearance: obese Orientation/consciousness: patient oriented x3 Eyes: General: appearance normal, both eyes and all related structures Resp: Effort & Inspection: normal respiratory effort and able to speak in complete sentences Auscultation: rales Cardio: Rate: regular rate Rhythm: regular rhythm GI: Palpation (GI): Soft to palpation Auscultation: normal bowel sounds Skin: General skin exam: no rashes or lesions noted Neuro: General: patient oriented x3 Cognition (Neuro): normal cognition Extrem: General: Yes normal to inspection and Yes no pedal edema Objective Data Current Medications Generic Name Dose Route Start Last Admin Trade Name Freq PRN Reason Stop Dose Admin Acetaminophen 650 mg 07/11/20 05:29 07/16/20 19:37 Acetaminophen 325 Mg Tablet PO 650 mg Q6H PRN Administration Pain, Mild (Pain Scale 1-3) Benzocaine 1 lozenge 07/17/20 14:28 07/18/20 10:18 Throat Lozenge, Medicated Lozenge MUCOUS MEM 1 lozenge Q2H PRN Administration Sore Throat Dexamethasone Sodium Phosphate 6 mg 07/14/20 06:30 07/19/20 08:57 Dexamethasone Sod Phosphate/Pf 10 Mg/Ml Vial IVPUSH 6 mg DAILY KARIN Administration Enoxaparin Sodium 105 mg 07/17/20 22:00 07/19/20 08:59 Enoxaparin Sodium 120 Mg/0.8 Ml Syringe 1 mg/kg (105 mg) 105 mg SUBCUT Administration Q12H KARIN Hydrochlorothiazide 25 mg 07/11/20 09:00 Hydrochlorothiazide 25 Mg Tablet PO DAILY [facility] Protocol Ceftriaxone Sodium 1 gm/ 50 mls @ 100 mls/hr 07/19/20 16:00 Sodium Chloride IV Q24H [facility] Non-Formulary Medication 0.09 drop 07/11/20 09:00 Bromfenac EYE-BOTH DAILY [facility] Ondansetron HCl 4 mg 07/11/20 05:29 Ondansetron Hcl 4 Mg/2 Ml Vial IVPUSH Q8H PRN Nausea and Vomiting Oxybutynin Chloride 15 mg 07/11/20 09:00 07/19/20 08:57 Oxybutynin Chloride Er 5 Mg Tab.Er.24 PO 15 mg DAILY [facility] Administration Pharmacy Consult 1 each 07/16/20 21:32 Consult Rx Vancomycin Dosing MISCELLANE DAILY PRN Consult order Sodium Chloride 3 ml 07/11/20 08:00 07/19/20 08:59 0.9 % Sodium Chloride Flush 3 Ml Syringe IVFLUSH 3 ml QSHIFT [facility] Administration Tamsulosin HCl 0.4 mg 07/11/20 09:00 07/19/20 08:57 Tamsulosin Hcl 0.4 Mg Capsule PO 0.4 mg DAILY [facility] Administration Valsartan 160 mg 07/11/20 09:00 Valsartan 160 Mg Tablet PO DAILY [facility] Protocol Labs CBC & Chem 7: 07/19/20 05:58 07/19/20 05:58 Microbiology Microbiology Results: Microbiology 07/14/20 06:55 Blood - Venous Blood Culture - Final No growth after 5 days. 07/14/20 07:02 Blood - Venous Blood Culture - Final No growth after 5 days. 07/16/20 20:37 Blood - Venous Blood Culture - Preliminary No growth after 48 hours. 07/16/20 20:37 Blood - Venous Blood Culture - Preliminary No growth after 48 hours. 07/17/20 04:30 Urine clean catch - Clean Catch Midstream Urine Culture - Final No growth. 07/10/20 22:43 Blood - Venous Blood Culture - Final No growth after 5 days. 07/10/20 22:39 Blood - Venous Blood Culture - Final No growth after 5 days. 07/11/20 Unknown Urine clean catch - Clean Catch Midstream Urine Culture - Final Assessment and Plan (1) Pneumonia due to COVID-19 virus: Status: Acute (2) Weakness: Status: Acute (3) MAURO (acute kidney injury): Status: Acute (4) COVID-19: Status: Acute Assessment and Plan: 75-year-old male who presents to the hospital for severe weakness and recently diagnosed COVID-19 COVID-19 pneumonia Acute hypoxic respiratory failure currently on high-flow 100% CT shows bilateral patchy ground-glass opacities continue IV dexamethasone day 6 convalscent plasma ordered have not recieved yet as patient blood group is B and in shortage at blood bank id consulted recommended no remdesivir as out of window. continue supportive management Continue IV antibiotic UTI less likely UA shows nitrite Urine culture shows no growth Pressure ulcers Air loss bed ordered Frequent repositioning Wound care consulted Continue wound care Mild rhabdomyolysis resolved MAURO resolved received IV fluid monitor kidney function DVT prophylaxis: Lovenox
[2020-07-19] MEDS: cefTRIAXone sodium 1 GM in 0.9 % Sodium Chloride 50 ML IV (15:27)
[2020-07-19 17:32] LABS: Pt Ventilation O2% 100%
[2020-07-19 21:55] LABS: pH ABG 7.45 (7.35-7.45)
[2020-07-19 21:56] LABS: ABG PCO2 47 mmHg (32-45)
[2020-07-19 21:57] LABS: Base Excess ABG 8.2; HCO3 ABG 33 mmol/L (22-26); PO2 ABG 88 mmHg (83-108)
[2020-07-20] VITALS (19 sets, daily range): BP systolic 91–176; BP diastolic 53–88; PULSE 67–150; RESP 18–22; TEMP 36.6–37.4; O2SAT 84–96; BMI 36.2
[2020-07-20 06:32] LABS: Hematocrit 45.4 % (42-52); Hemoglobin 14.1 g/dl (14.0-18.0); Mean Corpuscular HGB Conc 31.1 g/dl (31.0-36.0); Mean Corpuscular Hemoglobin 29.4 pg (27.0-33.0); Mean Corpuscular Volume 94.8 fL (80-98); Platelet Count 218 X10*3/uL (160-400); Red Blood Count 4.79 X10*6/uL (4.60-5.80); Red Cell Distribution Width 14.9 % (11.0-16.0); White Blood Count 14.7 X10*3/uL (4.8-10.8)
[2020-07-20 07:01] LABS: Anion Gap 14 (12-20); Blood Urea Nitrogen 22 mg/dL (9-16); Calcium 7.8 mg/dL (8.4-10.2); Carbon Dioxide 31 mmol/L (22-29); Chloride 107 mmol/L (96-108); Creatinine Clr Calc Pharmacy 134.8; Estimated Glomerular Filt Rate > 60; Glucose Random 104 mg/dL (60-115); Potassium 4.5 mmol/l (3.3-5.1); Sodium 147 mmol/L (135-145)
[2020-07-20 07:30] LABS: Band Neutrophils Percent 3 % (3-5); Lymphocytes Absolute Manual 0.7 X10*3/uL (0.6-4.8); Lymphocytes Percent Manual 5 % (20-40); Metamyelocytes Absolute 0.1 X10*3/uL; Metamyelocytes Percent 1 %; Monocytes Absolute Manual 0.9 X10*3/uL (0.0-1.2); Monocytes Percent Manual 6 % (2-11); Neutrophils Absolute Manual 12.9 X10*3/uL (2.2-7.9); Neutrophils Percent Manual 85 % (45-73)
[2020-07-20 07:31] LABS: Platelet Estimate NORMAL (NORMAL); Platelet Morphology Comment NORMAL; RBC Morphology NORMAL
[2020-07-20] MEDS: 0.9 % Sodium Chloride Flush 3 ML SYRINGE IVFLUSH ×2 (09:22→15:52)
[2020-07-20] MEDS: Enoxaparin Sodium 120 MG/0.8 ML SYRINGE 105 MG SUBCUT (09:24)
[2020-07-20 10:24] LABS: Pt Ventilation O2% 100%
[2020-07-20 10:27] LABS: Base Excess ABG 11.4; HCO3 ABG 44 mmol/L (22-26); PO2 ABG 64 mmHg (83-108); pH ABG 7.22 (7.35-7.45)
[2020-07-20 10:29] LABS: ABG PCO2 107 mmHg (32-45)
--- NOTE | 2020-07-20 10:38 | W.PM.CCCN ---
History of Present Illness Data of Consult Service Date: 07/20/20 Requesting physician: Dar Rivas Primary Care Provider: Unknown Physician HPI Reason for consult: Progressive hypercarbic and hypoxic respiratory failure despite maximum non 75-year-old male without significant past medical history presents with bilateral COVID-19 pneumonitis and ARDS with progressive hypoxemic respiratory failure despite maximum noninvasive support and prone position and today developed increasing delirium blood gas noting acute hypercarbic respiratory failure with pCO2 over 100 and acidotic and brought down and I did an immediate intubation uncomplicated presentation in input of a right triple-lumen CVP catheter Review of Systems Review of Systems: Yes Unobtainable due to mental status PMFSH Past Medical History Medical History BPH w urinary obs/LUTS Complicated urinary tract infection Social History Social History Household Members: Family Housing: Unknown / Unable to assess Do you presently have visiting nurse or other home services: No Smoking Status: Never smoker Smoked in Last 30 Days: No Use of substances other than those prescribed or required for medical reasons: No Currently Displaying Signs/Symptoms of Drug Intoxication Withdrawal: No Have you been hit, kicked, punched, or otherwise hurt by someone within the past year? If so, by whom?: No Do you feel safe in your current relationship?: No Is there a partner from a previous relationship who is making you feel unsafe now?: No Are you made to feel afraid or neglected: No Advance Directives: No Advance Directives Information Provided: Yes Do you have thoughts of harming others: None Do you have a plan to hurt others: No Plan Recently lost weight without trying: No service: Yes Current occupational status: retired Meds Allergies Allergy/AdvReac Type Severity Reaction Status Date / Time No Known Allergies Allergy Verified 07/10/20 20:47 [No Known Allergies*] Home Medications Medication Instructions Recorded Confirmed Type bromfenac 0.09 % eye drops 0.09 drp OPHTHALMIC (EYE) DAILY 05/17/20 07/11/20 History irbesartan 150 2 tab PO DAILY 05/17/20 07/11/20 History mg-hydrochlorothiazide 12.5 mg tablet oxybutynin chloride 15 mg 15 mg PO DAILY 05/17/20 07/11/20 History tablet,extended release 24 hr tamsulosin 0.4 mg capsule 0.4 mg PO DAILY 05/17/20 07/11/20 History Physical Exam Vital Signs: Vital Signs: Last Vital Signs Temp 97.9 F 07/20/20 08:00 Pulse 150 H 07/20/20 10:10 Resp 22 H 07/20/20 08:00 BP 176/84 H 07/20/20 08:00 Pulse Ox 84 L 07/20/20 10:10 Body Mass Index 33.8 Patient obtunded on BiPAP Moves all 4 extremities and nonfocal Cardiac exam with sinus tachycardia [address]-T changes flat neck veins adequate bilateral carotid upstrokes and no gallops Coarse bilateral rales Abdomen benign soft bowel sounds present no organomegaly Skin intact with no acrocyanosis Results Labs CBC & Chem 7: 07/20/20 05:57 07/20/20 05:57 Labs: Short CBC 07/20/20 Range/Units 05:57 WBC 14.7 H (4.8-10.8) X10*3/uL Hgb 14.1 (14.0-18.0) g/dl Hct 45.4 (42-52) % Plt Count 218 (160-400) X10*3/uL BMP 07/20/20 05:57 Sodium 147 H Potassium 4.5 Chloride 107 Carbon Dioxide 31 H BUN 22 H Creatinine 0.58 Calcium 7.8 L Microbiology Microbiology Results: Microbiology 07/14/20 06:55 Blood - Venous Blood Culture - Final No growth after 5 days. 07/14/20 07:02 Blood - Venous Blood Culture - Final No growth after 5 days. 07/16/20 20:37 Blood - Venous Blood Culture - Preliminary No growth after 48 hours. 07/16/20 20:37 Blood - Venous Blood Culture - Preliminary No growth after 48 hours. 07/17/20 04:30 Urine clean catch - Clean Catch Midstream Urine Culture - Final No growth. 07/10/20 22:43 Blood - Venous Blood Culture - Final No growth after 5 days. 07/10/20 22:39 Blood - Venous Blood Culture - Final No growth after 5 days. 07/11/20 Unknown Urine clean catch - Clean Catch Midstream Urine Culture - Final Assessment and Plan (1) ARDS (adult respiratory distress syndrome): Status: Acute (2) Delirium: Status: Acute (3) Hypernatremia: Status: Acute Sinus tachycardia is gradually diminishing down to rate 120 as a result of removing the work of breathing now that he is on assist control and we will continue that support and I would continue the full-dose anticoagulation as well as Decadron at this point and I will assess cardiac function with bedside echo and awaiting CVP measurement
--- NOTE | 2020-07-20 10:39 | P.PCNCC_ITS ---
Procedures Intubation Intubation Comments: Bilateral COVID-19 pneumonitis/ARDS oxygen saturations dropping heart rate 150 to sinus tachycardia delirium with pCO2 of 107 representing acute hypercarbic and hypoxic respiratory failure requiring emergent intubation which literally took seconds with easy visualization of vocal cords utilizing glide scope 7. 0.5 endotracheal tube with good bilateral breath sounds and end-tidal CO2 response With the son was called prior to the procedure and the necessity of the pro cedure was explained and accepted Consent for Procedure: Emergent-no informed consent obtained Time out performed: Yes Sedative: propofol Paralytic: rocuronium Laryngoscope: fiber optic video scope ET tube size: 7.5 ET tube uncuffed: No Tube secured depth (cm): 26 Tube secured location: lips Tube placement confirmation: visualized tube passing through cords, equal breath sounds bilaterally and confirmation by capnometry Patient tolerated procedure: well and no complications Intubation complications: none
--- NOTE | 2020-07-20 10:48 | HO.PM.IMPN ---
Subjective Subjective Date of Service: 07/20/20 Interval History: The patient was seen and evaluated this morning Looks lethargic, and despite distress, not waking up Requiring high-flow oxygen with desaturation to mid 80s Systematic review Patient nonverbal Physical Exam Vital Signs: Vital Signs: Last Vital Signs Temp 97.9 F 07/20/20 08:00 Pulse 150 H 07/20/20 10:10 Resp 22 H 07/20/20 08:00 BP 176/84 H 07/20/20 08:00 Pulse Ox 84 L 07/20/20 10:10 Body Mass Index 33.8 Respiratory distressed, high-flow oxygen, Not alert, responsive to painful stimuli Moving all extremities, no focal weakness noted Abdomen is soft and lax, no ascites Objective Data Current Medications Generic Name Dose Route Start Last Admin Trade Name Freq PRN Reason Stop Dose Admin Acetaminophen 650 mg 07/11/20 05:29 07/16/20 19:37 Acetaminophen 325 Mg Tablet PO 650 mg Q6H PRN Administration Pain, Mild (Pain Scale 1-3) Benzocaine 1 lozenge 07/17/20 14:28 07/18/20 10:18 Throat Lozenge, Medicated Lozenge MUCOUS MEM 1 lozenge Q2H PRN Administration Sore Throat Dexamethasone Sodium Phosphate 6 mg 07/14/20 06:30 07/20/20 09:22 Dexamethasone Sod Phosphate/Pf 10 Mg/Ml Vial IVPUSH 6 mg DAILY KARIN Administration Enoxaparin Sodium 105 mg 07/17/20 22:00 07/20/20 09:24 Enoxaparin Sodium 120 Mg/0.8 Ml Syringe 1 mg/kg (105 mg) 105 mg SUBCUT Administration Q12H [facility] Hydrochlorothiazide 25 mg 07/11/20 09:00 Hydrochlorothiazide 25 Mg Tablet PO DAILY [facility] Protocol Ceftriaxone Sodium 1 gm/ 50 mls @ 100 mls/hr 07/19/20 16:00 07/19/20 16:27 Sodium Chloride IV Infused Q24H [facility] Infusion Non-Formulary Medication 0.09 drop 07/11/20 09:00 Bromfenac EYE-BOTH DAILY [facility] Ondansetron HCl 4 mg 07/11/20 05:29 Ondansetron Hcl 4 Mg/2 Ml Vial IVPUSH Q8H PRN Nausea and Vomiting Oxybutynin Chloride 15 mg 07/11/20 09:00 07/20/20 09:36 Oxybutynin Chloride Er 5 Mg Tab.Er.24 PO Not Given DAILY [facility] Pharmacy Consult 1 each 07/16/20 21:32 Consult Rx Vancomycin Dosing MISCELLANE DAILY PRN Consult order Sodium Chloride 3 ml 07/11/20 08:00 07/20/20 09:22 0.9 % Sodium Chloride Flush 3 Ml Syringe IVFLUSH 3 ml QSHIFT [facility] Administration Tamsulosin HCl 0.4 mg 07/11/20 09:00 07/20/20 09:36 Tamsulosin Hcl 0.4 Mg Capsule PO Not Given DAILY [facility] Valsartan 160 mg 07/11/20 09:00 Valsartan 160 Mg Tablet PO DAILY [facility] Protocol Labs CBC & Chem 7: 07/20/20 05:57 07/20/20 05:57 Microbiology Microbiology Results: Microbiology 07/14/20 06:55 Blood - Venous Blood Culture - Final No growth after 5 days. 07/14/20 07:02 Blood - Venous Blood Culture - Final No growth after 5 days. 07/16/20 20:37 Blood - Venous Blood Culture - Preliminary No growth after 48 hours. 07/16/20 20:37 Blood - Venous Blood Culture - Preliminary No growth after 48 hours. 07/17/20 04:30 Urine clean catch - Clean Catch Midstream Urine Culture - Final No growth. 07/10/20 22:43 Blood - Venous Blood Culture - Final No growth after 5 days. 07/10/20 22:39 Blood - Venous Blood Culture - Final No growth after 5 days. 07/11/20 Unknown Urine clean catch - Clean Catch Midstream Urine Culture - Final Assessment and Plan (1) Pneumonia due to COVID-19 virus: Status: Acute (2) Weakness: Status: Acute (3) MAURO (acute kidney injury): Status: Acute (4) COVID-19: Status: Acute (5) Respiratory failure with hypoxia and hypercapnia: Status: Acute Assessment and Plan: 75-year-old male who presents to the hospital for severe weakness and recently diagnosed COVID-19 Acute hypoxic hypercapnic respiratory failure Secondary to COVID-19 infection currently on high-flow 100% ABG showing low pH of 7.22, hypercapnia [address] shows bilateral patchy ground-glass opacities continue IV dexamethasone day 7 convalscent plasma ordered have not recieved yet as patient blood group is B and in shortage at blood bank id consulted recommended no remdesivir as out of window. continue supportive management Continue IV antibiotic On full-dose Lovenox To transfer to ICU for intubation and ventilation UTI less likely UA shows nitrite Urine culture shows no growth Pressure ulcers Air loss bed ordered Frequent repositioning Wound care consulted Continue wound care MAURO resolved received IV fluid monitor kidney function DVT prophylaxis Full does Lovenox
--- NOTE | 2020-07-20 11:03 | PC.NURSE ---
This RN proned pt at 1015 and O2 % increased from 84% to 89% on 100% HFNC and NRB. Pt awaiting transfer to ICU. Will continue to monitor.
[2020-07-20] MEDS: propofoL 200 MG/20 ML VIAL 50 MG IVPUSH (12:23)
[2020-07-20] MEDS: Rocuronium Bromide 50 MG/5 ML VIAL IVPUSH (12:23)
[2020-07-20] MEDS: propofoL 1,000 MG/100 ML VIAL 19.28 MG IVCONT (12:28)
--- NOTE | 2020-07-20 12:52 | XR_ITS ---
EXAMINATION: XR CHEST CLINICAL INFORMATION: Right IJ central line placement. COMPARISON: Chest done on 07/14/2020. TECHNIQUE: Frontal view of the chest was obtained. FINDINGS: The tip of the right IJ central line is projecting at the cavoatrial junction. The tip of the endotracheal tube is located approximately 2.7 cm above the level of the lloyd. The tip of the NG tube is outside the [id number] however is infradiaphragmatic. Extensive patchy near diffuse airspace disease is noted bilaterally, similar to prior study. No evidence of any pleural effusion or pneumothorax. XR/XR chest 1V IMPRESSION: 1. The tip of the endotracheal tube is seen 2.7 cm above the level of the lloyd. 2. The tip of the right IJ central line is seen at the cavoatrial junction, without evidence of any pneumothorax. 3. The tip of the NG tube is below the level of the diaphragm however is outside the [id number]. 4. No significant change within the bilateral lung parenchyma since the prior study done on 07/14/2020.
--- NOTE | 2020-07-20 13:18 | W.PM.CCHP ---
Procedures Central Line Placement Right IJ: Central Line Comments: Septic/delirious patient with acute hypercarbic and hypoxic respiratory failure from bilateral COVID-19 pneumonitis/ARDS with diminished urine output increasing hypernatremia for central line placement access needed for on inotropics support as well as CVP measurement for volume status and volume measurement Consent for Procedure: Emergent-no informed consent obtained Time out performed: Yes Sterile Technique Used: Yes Patient placed on monitor/pulse ox: Yes prep: mask, gown and gloves Central line prep: Chlorhexidine scrub Ultrasound used for placement: Yes Central line lumen inserted: triple Post procedure: sutured in place, good blood return, all ports aspirated, flushed, capped and sterile dressing applied Post procedure x-ray: tip of catheter in good position and no pneumothorax seen Patient tolerated procedure: well and no complications Complications: none
[2020-07-20] MEDS: propofoL 1,000 MG/100 ML VIAL 32.13 MG IVCONT ×4 (15:02→23:51)
--- NOTE | 2020-07-20 17:24 | P.CNUR_ITS ---
History of Present Illness Consult details Consult date: 07/20/20 Reason for consult: other (decreased urine output with inabilty to place sinclair cath) Review of Systems Review of Systems: Yes unobtainable due to endotracheal tube PMFSH Past Medical History Medical History BPH w urinary obs/LUTS Complicated urinary tract infection Social History Social History Household Members: Family Housing: Unknown / Unable to assess Do you presently have visiting nurse or other home services: No Smoking Status: Never smoker Smoked in Last 30 Days: No Use of substances other than those prescribed or required for medical reasons: No Currently Displaying Signs/Symptoms of Drug Intoxication Withdrawal: No Have you been hit, kicked, punched, or otherwise hurt by someone within the past year? If so, by whom?: No Do you feel safe in your current relationship?: No Is there a partner from a previous relationship who is making you feel unsafe now?: No Are you made to feel afraid or neglected: No Advance Directives: No Advance Directives Information Provided: Yes Do you have thoughts of harming others: None Do you have a plan to hurt others: No Plan Recently lost weight without trying: No service: Yes Current occupational status: retired [employer] Allergies Allergy/AdvReac Type Severity Reaction Status Date / Time No Known Allergies Allergy Verified 07/10/20 20:47 [No Known Allergies*] Home Medications Medication Instructions Recorded Confirmed Type bromfenac 0.09 % eye drops 0.09 drp OPHTHALMIC (EYE) DAILY 05/17/20 07/11/20 History irbesartan 150 2 tab PO DAILY 05/17/20 07/11/20 History mg-hydrochlorothiazide 12.5 mg tablet oxybutynin chloride 15 mg 15 mg PO DAILY 05/17/20 07/11/20 History tablet,extended release 24 hr tamsulosin 0.4 mg capsule 0.4 mg PO DAILY 05/17/20 07/11/20 History Physical Exam Vital Signs: Vital Signs: Last Vital Signs Temp 98.6 F 07/20/20 16:00 Pulse 89 07/20/20 16:00 Resp 20 07/20/20 16:00 BP 109/70 07/20/20 16:00 Pulse Ox 92 07/20/20 16:00 Body Mass Index 36.2 : Other: Patient with bladder urethra secondary to attempted Sinclair catheter placement Results Labs Result diagrams: 07/20/20 05:57 07/20/20 05:57 Labs: Abnormal lab results 07/19/20 07/20/20 07/20/20 Range/Units 17:26 05:57 05:57 WBC 14.7 H (4.8-10.8) X10*3/uL Neutrophils % (Manual) 85 H (45-73) % Lymphocytes % (Manual) 5 L (20-40) % Abs Neuts (Manual) 12.9 H (2.2-7.9) X10*3/uL ABG pH (7.35-7.45) ABG pCO2 47 H (32-45) mmHg ABG pO2 (83-108) mmHg ABG HCO3 33 H (22-26) mmol/L Sodium 147 H (135-145) mmol/L Carbon Dioxide 31 H (22-29) mmol/L BUN 22 H (9-16) mg/dL Calcium 7.8 L (8.4-10.2) mg/dL 07/20/20 Range/Units 10:14 WBC (4.8-10.8) X10*3/uL Neutrophils % (Manual) (45-73) % Lymphocytes % (Manual) (20-40) % Abs Neuts (Manual) (2.2-7.9) X10*3/uL ABG pH 7.22 L (7.35-7.45) ABG pCO2 107 H* (32-45) mmHg ABG pO2 64 L (83-108) mmHg ABG HCO3 44 H (22-26) mmol/L Sodium (135-145) mmol/L Carbon Dioxide (22-29) mmol/L BUN (9-16) mg/dL Calcium (8.4-10.2) mg/dL Short CBC 07/20/20 Range/Units 05:57 WBC 14.7 H (4.8-10.8) X10*3/uL Hgb 14.1 (14.0-18.0) g/dl Hct 45.4 (42-52) % Plt Count 218 (160-400) X10*3/uL BMP 07/20/20 05:57 Sodium 147 H Potassium 4.5 Chloride 107 Carbon Dioxide 31 H BUN 22 H Creatinine 0.58 Calcium 7.8 L Urine 07/11/20 07/17/20 Range/Units 10:00 04:33 Urine Color YELLOW EDDY Urine Appearance CLEAR HAZY Urine pH 6.0 6.0 (5.0-8.0) Ur Specific [place] 1.025 1.025 (1.005-1.025) Urine Protein TRACE 1+ H (NEG-TRACE) MG/DL Urine Glucose (UA) NEG NEG (NEG) MG/DL All other labs normal. Assessment and Plan (1) BPH w urinary obs/LUTS: Problem details: Patient ability placing Sinclair catheter attempted placement of a catheter after injecting the urethra with lidocaine jelly that he had catheter hung up therefore tried a 18 Danish coude which still would not pass in the patient's bladder. Tried placing a Glidewire by itself which would not pass into the patient's bladder. Subsequently the patient underwent cystoscopy at the bedside prepped and draped usual fashion lidocaine jelly per urethra and subsequently underwent cystoscopy patient had normal appearing urethra has posterior false passage and the bulbar urethra has trilobar hypertrophy of the prostate with evidence of previous laser TURP once the kidney at cystoscope was Sinclair into the patient's bladder a Glidewire was placed through the cystoscope and subsequently a 16 [place] tip catheter was advanced without any difficulty patient's bladder with drainage of clear urine. Patient's balloon was blown up without any difficulty the catheter was at the hub on the meatus. The patient tolerated seizure well there were no complications. Status: Acute
--- NOTE | 2020-07-20 18:24 | PC.NURSE ---
S/E Patient arrived to unit at 1215 from [facility] - patient in bed, proned, on Bipap, O2 sat mid 80's, unarousable Afebrile Intubated @ 1230 Ett #8, 26cm - sedated with 50mg Propofol & 50mg Rocuromium for intubation Vent settings: AC 20/550/10/100% CXR completed Started on propofol gtt Pupils 1mm, pinpoint SR HR 80's BP soft - Started on levophed gtt R IJ TLC placed OGT placed and clamped No BM Unable to placed sinclair catheter - Urology consulted #16F coude placed by urology Urine output allyson with sediment Unstagable to coccyx Stg II bilateral coccyx - barrier cream applied, sizewise bed in place, repo q2hr, bathed
[2020-07-20 19:51] LABS: PCO2 VBG 57 mmHg; PO2 VBG 65 mmHg; pH VBG 7.44 (7.32-7.43)
[2020-07-20 19:52] LABS: Base Excess VBG 12.9 mmol/L; HCO3 VBG 39 mmol/L
[2020-07-20 20:07] LABS: D Dimer 1833 NG/ML
[2020-07-20 20:12] LABS: Anion Gap 13 (12-20); Blood Urea Nitrogen 36 mg/dL (9-16); Calcium 7.6 mg/dL (8.4-10.2); Carbon Dioxide 33 mmol/L (22-29); Chloride 107 mmol/L (96-108); Creatinine Clr Calc Pharmacy 77.7; Estimated Glomerular Filt Rate > 60; Glucose Random 154 mg/dL (60-115); Potassium 4.6 mmol/l (3.3-5.1); Sodium 148 mmol/L (135-145)
--- NOTE | 2020-07-20 21:53 | P.PNID_ITS ---
Subjective Subjective Date of Service: 08/04/20 Interval History: he has had somnolence he has increased CO2 and is intubated in ICU Objective Data Labs CBC & Chem 7: 08/02/20 05:39 08/02/20 05:39 Labs: Laboratory Results - last 24 hr 07/19/20 07/20/20 07/20/20 17:26 05:57 05:57 WBC 14.7 H RBC 4.79 Hgb 14.1 Hct 45.4 MCV 94.8 MCH 29.4 MCHC 31.1 RDW 14.9 Plt Count 218 MPV 10.0 Immature Gran % (Auto) Cancelled Neut % (Auto) Cancelled Lymph % (Auto) Cancelled [place] % (Auto) Cancelled Eos % (Auto) Cancelled Baso % (Auto) Cancelled Lymph # (Auto) Cancelled [place] # (Auto) Cancelled Eos # (Auto) Cancelled Baso # (Auto) Cancelled Abs Immat Gran (auto) Cancelled Absolute Neuts (auto) Cancelled Absolute Nucleated RBC 0.000 Nucleated RBC % (auto) 0.0 Neutrophils % (Manual) 85 H Band Neutrophils % 3 Lymphocytes % (Manual) 5 L Monocytes % (Manual) 6 Metamyelocytes % 1 Abs Neuts (Manual) 12.9 H Lymphocytes # (Manual) 0.7 Monocytes # (Manual) 0.9 Metamyelocytes # 0.1 Platelet Estimate NORMAL Plt Morphology Comment NORMAL RBC Morphology NORMAL D-Dimer ABG pH 7.45 ABG pCO2 47 H ABG pO2 88 ABG HCO3 33 H ABG O2 Saturation 97.0 ABG Base Excess 8.2 VBG pH VBG pCO2 VBG pO2 VBG HCO3 VBG O2 Saturation VBG Base Excess Oxygen Given Sodium 147 H Potassium 4.5 Chloride 107 Carbon Dioxide 31 H Anion Gap 14 BUN 22 H Creatinine 0.58 Estim Creat Clear Calc 134.8 Estimated GFR > 60 Random Glucose 104 Calcium 7.8 L 07/20/20 07/20/20 07/20/20 10:14 19:40 19:40 WBC RBC Hgb Hct MCV MCH MCHC RDW Plt Count MPV Immature Gran % (Auto) Neut % (Auto) Lymph % (Auto) [place] % (Auto) Eos % (Auto) Baso % (Auto) Lymph # (Auto) [place] # (Auto) Eos # (Auto) Baso # (Auto) Abs Immat Gran (auto) Absolute Neuts (auto) Absolute Nucleated RBC Nucleated RBC % (auto) Neutrophils % (Manual) Band Neutrophils % Lymphocytes % (Manual) Monocytes % (Manual) Metamyelocytes % Abs Neuts (Manual) Lymphocytes # (Manual) Monocytes # (Manual) Metamyelocytes # Platelet Estimate Plt Morphology Comment RBC Morphology D-Dimer 1833 ABG pH 7.22 L ABG pCO2 107 H* ABG pO2 64 L ABG HCO3 44 H ABG O2 Saturation 84.0 ABG Base Excess 11.4 VBG pH VBG pCO2 VBG pO2 VBG HCO3 VBG O2 Saturation VBG Base Excess Oxygen Given 100% Sodium 148 H Potassium 4.6 Chloride 107 Carbon Dioxide 33 H Anion Gap 13 BUN 36 H D Creatinine 1.04 Estim Creat Clear Calc 77.7 Estimated GFR > 60 Random Glucose 154 H D Calcium 7.6 L 07/20/20 19:40 WBC RBC Hgb Hct MCV MCH MCHC RDW Plt Count MPV Immature Gran % (Auto) Neut % (Auto) Lymph % (Auto) [place] % (Auto) Eos % (Auto) Baso % (Auto) Lymph # (Auto) [place] # (Auto) Eos # (Auto) Baso # (Auto) Abs Immat Gran (auto) Absolute Neuts (auto) Absolute Nucleated RBC Nucleated RBC % (auto) Neutrophils % (Manual) Band Neutrophils % Lymphocytes % (Manual) Monocytes % (Manual) Metamyelocytes % Abs Neuts (Manual) Lymphocytes # (Manual) Monocytes # (Manual) Metamyelocytes # Platelet Estimate Plt Morphology Comment RBC Morphology D-Dimer ABG pH ABG pCO2 ABG pO2 ABG HCO3 ABG O2 Saturation ABG Base Excess VBG pH 7.44 H VBG pCO2 57 VBG pO2 65 VBG HCO3 39 VBG O2 Saturation 93.0 VBG Base Excess 12.9 Oxygen Given Sodium Potassium Chloride Carbon Dioxide Anion Gap BUN Creatinine Estim Creat Clear Calc Estimated GFR Random Glucose Calcium Microbiology Microbiology Results: Microbiology 07/14/20 06:55 Blood - Venous Blood Culture - Final No growth after 5 days. 07/14/20 07:02 Blood - Venous Blood Culture - Final No growth after 5 days. 07/16/20 20:37 Blood - Venous Blood Culture - Preliminary No growth after 48 hours. 07/16/20 20:37 Blood - Venous Blood Culture - Preliminary No growth after 48 hours. 07/17/20 04:30 Urine clean catch - Clean Catch Midstream Urine Culture - Final No growth. 07/10/20 22:43 Blood - Venous Blood Culture - Final No growth after 5 days. 07/10/20 22:39 Blood - Venous Blood Culture - Final No growth after 5 days. 07/11/20 Unknown Urine clean catch - Clean Catch Midstream Urine Culture - Final Physical Exam Vital Signs: Vital Signs: Last Vital Signs Temp 99.3 F 07/20/20 21:00 Pulse 75 07/20/20 21:00 Resp 20 07/20/20 21:00 BP 112/65 07/20/20 21:00 Pulse Ox 90 L 07/20/20 21:00 Body Mass Index 36.2 Const: General: cooperative HENMT: Head: Yes normal to inspection Mouth: Normal oral and palatal mucosa present Resp: Effort & Inspection: normal respiratory effort Cardio: Rate: regular rate Rhythm: regular rhythm GI: Palpation (GI): Soft to palpation and nontender Skin: General skin exam: no rashes or lesions noted Assessment and Plan Assessment and plan (1) Delirium: Problem details: He has been intubated He has had a fever yesterday and was started on Zosyn and Vancomycin Status: Acute Assessment and Plan: Would hold antibiotics,cultures negative Supportive care (2) ARDS (adult respiratory distress syndrome): Status: Acute Time Spent With Patient Time: Total time spent is greater than 50% in coordination of care (as documented) at patient's floor/unit and/or counseling patient: Time with patient: 15 - 24 minutes
[2020-07-20 21:57] LABS: Glucose Urine UA NEG (NEG); Leukocyte Esterase Urine TRACE (NEG); PH 5.5 (5.0-8.0); Specific Gravity - Urine 1.025 (1.005-1.025); UACC Culture Trigger YES; Urine Blood 3+ (NEG); Urine Ketones 5 MG/DL (NEG); Urine Protein 3+ MG/DL (NEG-TRACE)
[2020-07-20 22:00] LABS: Appearance Urine TURBID; Nitrite Urine NEG (NEG)
[2020-07-20 22:02] LABS: Bacteria Urine 2+ /LPF; RBC Urine TNTC /HPF (0); Squamous Epithelial Cell Urine 1+ /LPF
[2020-07-20 22:03] LABS: Color Urine RED
[2020-07-21] VITALS (32 sets, daily range): BP systolic 108–146; BP diastolic 60–81; PULSE 62–106; RESP 14–22; TEMP 36–37.7; O2SAT 90–100
[2020-07-21] MEDS: 0.9 % Sodium Chloride Flush 3 ML SYRINGE IVFLUSH ×4 (00:01→23:08)
[2020-07-21] MEDS: propofoL 1,000 MG/100 ML VIAL 32.13 MG IVCONT ×3 (02:03→08:18)
--- NOTE | 2020-07-21 05:00 | XR_ITS ---
EXAMINATION: XR CHEST CLINICAL INFORMATION: Covid COMPARISON: 07/20/2020 TECHNIQUE: Frontal view of the chest was obtained. FINDINGS: Endotracheal tube tip lies 4.6 cm above the lloyd. Enteric tube courses into the stomach. Right IJ central line tip lies in the region of the cavoatrial junction. Lung volumes are symmetric. There is improved aeration bilaterally compared to prior with residual patchy opacities towards the lung base. No pneumothorax is seen. Possible trace left pleural effusion. The cardiomediastinal contour is unremarkable. No acute osseous findings are seen. XR/XR chest 1V IMPRESSION: Improved aeration bilaterally with residual patchy bibasilar opacities. Possible trace left pleural effusion.
[2020-07-21 05:50] LABS: PCO2 VBG 60 mmHg; PO2 VBG 72 mmHg; pH VBG 7.43 (7.32-7.43)
[2020-07-21 05:51] LABS: Base Excess VBG 13.4 mmol/L; HCO3 VBG 40 mmol/L; Hematocrit 40.9 % (42-52); Hemoglobin 12.6 g/dl (14.0-18.0); Mean Corpuscular HGB Conc 30.8 g/dl (31.0-36.0); Mean Corpuscular Hemoglobin 29.5 pg (27.0-33.0); Mean Corpuscular Volume 95.8 fL (80-98); Mean Platelet Volume 10.8 fL (9.4-12.4); Platelet Count 205 X10*3/uL (160-400); Red Blood Count 4.27 X10*6/uL (4.60-5.80); Red Cell Distribution Width 15.3 % (11.0-16.0); White Blood Count 20.1 X10*3/uL (4.8-10.8)
[2020-07-21 06:00] LABS: INTERNATIONAL NORM RATIO 1.1 (0.9-1.1); Prothrombin Time 13.6 SEC (10.8-13.0)
[2020-07-21 06:03] LABS: Partial Thromboplastin Time 31.2 SEC (24.1-38.0)
[2020-07-21 06:13] LABS: Calcium 7.8 mg/dL (8.4-10.2); D Dimer 2724 NG/ML
[2020-07-21 06:21] LABS: Band Neutrophils Percent 2 % (3-5); Eosinophils Absolute Manual 0.2 X10*3/UL (0.0-0.8); Eosinophils Percent Manual 1 % (0-4); Lymphocytes Absolute Manual 2.6 X10*3/uL (0.6-4.8); Lymphocytes Percent Manual 13 % (20-40); Metamyelocytes Absolute 0.2 X10*3/uL; Metamyelocytes Percent 1 %; Monocytes Percent Manual 5 % (2-11); Myelocytes Absolute 0.4 X10*/uL; Myelocytes Percent 2 %; Neutrophils Absolute Manual 15.7 X10*3/uL (2.2-7.9); Neutrophils Percent Manual 76 % (45-73)
[2020-07-21 06:22] LABS: Platelet Estimate NORMAL (NORMAL); RBC Morphology NORMAL
[2020-07-21 06:23] LABS: B Type Natriuretic Peptide 60 pg/mL (<100); Platelet Morphology Comment NORM
[2020-07-21 06:26] LABS: Anion Gap 13 (12-20); Blood Urea Nitrogen 46 mg/dL (9-16); Calcium 7.8 mg/dL (8.4-10.2); Carbon Dioxide 31 mmol/L (22-29); Chloride 110 mmol/L (96-108); Creatinine Clr Calc Pharmacy 69.7; Estimated Glomerular Filt Rate > 60; Glucose Random 134 mg/dL (60-115); Lactate Dehydrogenase 454 U/L (118-273); Magnesium 2.8 mg/dL (1.6-2.6); Phosphorus 2.9 mg/dL (2.7-4.5); Potassium 4.3 mmol/l (3.3-5.1); Sodium 150 mmol/L (135-145)
[2020-07-21 06:39] LABS: Ferritin 726 ng/mL (20-250)
[2020-07-21] MEDS: dexAMETHasone sod phosphate 4 MG/ML VIAL 6 MG IVPUSH (08:38)
[2020-07-21] MEDS: propofoL 1,000 MG/100 ML VIAL 25.7 MG IVCONT ×2 (11:04→13:25)
[2020-07-21 12:45] LABS: Anion Gap 12 (12-20); Blood Urea Nitrogen 47 mg/dL (9-16); Calcium 7.6 mg/dL (8.4-10.2); Carbon Dioxide 32 mmol/L (22-29); Chloride 107 mmol/L (96-108); Creatinine Clr Calc Pharmacy 68.5; Estimated Glomerular Filt Rate > 60; Glucose Random 167 mg/dL (60-115); Potassium 4.2 mmol/l (3.3-5.1); Sodium 147 mmol/L (135-145)
--- NOTE | 2020-07-21 14:15 | P.PNCC_ITS ---
Subjective Subjective Date of Service: 07/21/20 Interval History: A 75-year-old COVID-19 pneumonitis and ARDS failed maximum noninvasive oxygenation even even prone brought down rather urgently with oxygen saturations dropping below 70% with with worsening lethargy and delirium and and blood gas indicating pCO2 greater than 100 and required urgent and easy intubation central line placement with CVP reading of 9 so he appeared to be euvolemic but that with the sedation he did require on inotropics support with Levophed and remains on Decadron Physical Exam Vital Signs: Vital Signs: Last Vital Signs Temp 97.5 F 07/21/20 12:00 Pulse 75 07/21/20 14:00 Resp 21 H 07/21/20 14:00 BP 122/71 07/21/20 14:00 Pulse Ox 95 07/21/20 14:00 Body Mass Index 36.2 Const: Other: Stable minutes ventilatory requirements and nonfocal neurologically with corrected blood gas FiO2 has been weaned to 60% and following traumatic Montanez insertion the urine is beginning to lighten up and urine output seems to be adequate as his renal function Bedside echo shows no primary valve or pericardial disease and preserved systolic reserve Abdomen benign no organomegaly nondistended good bowel sounds and tolerating his feedings Objective Data Labs CBC & Chem 7: 07/21/20 05:42 07/21/20 12:05 Labs: Laboratory Results - last 24 hr 07/20/20 07/20/20 07/20/20 19:40 19:40 19:40 WBC RBC Hgb Hct MCV MCH MCHC RDW Plt Count MPV Immature Gran % (Auto) Neut % (Auto) Lymph % (Auto) [place] % (Auto) Eos % (Auto) Baso % (Auto) Lymph # (Auto) [place] # (Auto) Eos # (Auto) Baso # (Auto) Abs Immat Gran (auto) Absolute Neuts (auto) Absolute Nucleated RBC Nucleated RBC % (auto) Neutrophils % (Manual) Band Neutrophils % Lymphocytes % (Manual) Monocytes % (Manual) Eosinophils % (Manual) Metamyelocytes % Myelocytes % Abs Neuts (Manual) Lymphocytes # (Manual) Monocytes # (Manual) Eosinophils # (Manual) Metamyelocytes # Myelocytes # Platelet Estimate Plt Morphology Comment RBC Morphology PT INR APTT D-Dimer 1833 VBG pH 7.44 H VBG pCO2 57 VBG pO2 65 VBG HCO3 39 VBG O2 Saturation 93.0 VBG Base Excess 12.9 Sodium 148 H Potassium 4.6 Chloride 107 Carbon Dioxide 33 H Anion Gap 13 BUN 36 H D Creatinine 1.04 Estim Creat Clear Calc 77.7 Estimated GFR > 60 Random Glucose 154 H D Calcium 7.6 L Phosphorus Magnesium Ferritin Lactate Dehydrogenase C-Reactive Protein B-Natriuretic Peptide Urine Color Urine Appearance Urine pH Ur Specific [place] Urine Protein Urine Glucose (UA) Urine Ketones Urine Blood Urine Nitrite Ur Leukocyte Esterase Urine RBC Urine WBC Ur Squamous Epith Cells Urine Bacteria 07/20/20 07/21/20 07/21/20 21:39 05:42 05:42 WBC 20.1 H RBC 4.27 L Hgb 12.6 L Hct 40.9 L MCV 95.8 MCH 29.5 MCHC 30.8 L RDW 15.3 Plt Count 205 MPV 10.8 Immature Gran % (Auto) Cancelled Neut % (Auto) Cancelled Lymph % (Auto) Cancelled [place] % (Auto) Cancelled Eos % (Auto) Cancelled Baso % (Auto) Cancelled Lymph # (Auto) Cancelled [place] # (Auto) Cancelled Eos # (Auto) Cancelled Baso # (Auto) Cancelled Abs Immat Gran (auto) Cancelled Absolute Neuts (auto) Cancelled Absolute Nucleated RBC 0.000 Nucleated RBC % (auto) 0.0 Neutrophils % (Manual) 76 H Band Neutrophils % 2 L Lymphocytes % (Manual) 13 L Monocytes % (Manual) 5 Eosinophils % (Manual) 1 Metamyelocytes % 1 Myelocytes % 2 Abs Neuts (Manual) 15.7 H Lymphocytes # (Manual) 2.6 Monocytes # (Manual) 1.0 Eosinophils # (Manual) 0.2 Metamyelocytes # 0.2 Myelocytes # 0.4 Platelet Estimate NORMAL Plt Morphology Comment NORM RBC Morphology NORMAL PT INR APTT D-Dimer VBG pH VBG pCO2 VBG pO2 VBG HCO3 VBG O2 Saturation VBG Base Excess Sodium 150 H Potassium 4.3 Chloride 110 H Carbon Dioxide 31 H Anion Gap 13 BUN 46 H Creatinine 1.16 Estim Creat Clear Calc 69.7 Estimated GFR > 60 Random Glucose 134 H Calcium 7.8 L Phosphorus 2.9 Magnesium 2.8 H Ferritin Lactate Dehydrogenase 454 H C-Reactive Protein 10.80 H B-Natriuretic Peptide Urine Color RED Urine Appearance TURBID Urine pH 5.5 Ur Specific [place] 1.025 Urine Protein 3+ H Urine Glucose (UA) NEG Urine Ketones 5 Urine Blood 3+ H Urine Nitrite NEG Ur Leukocyte Esterase TRACE H Urine RBC TNTC H Urine WBC 10-14 H Ur Squamous Epith Cells 1+ Urine Bacteria 2+ 07/21/20 07/21/20 07/21/20 05:42 05:42 05:42 WBC RBC Hgb Hct MCV MCH MCHC RDW Plt Count MPV Immature Gran % (Auto) Neut % (Auto) Lymph % (Auto) [place] % (Auto) Eos % (Auto) Baso % (Auto) Lymph # (Auto) [place] # (Auto) Eos # (Auto) Baso # (Auto) Abs Immat Gran (auto) Absolute Neuts (auto) Absolute Nucleated RBC Nucleated RBC % (auto) Neutrophils % (Manual) Band Neutrophils % Lymphocytes % (Manual) Monocytes % (Manual) Eosinophils % (Manual) Metamyelocytes % Myelocytes % Abs Neuts (Manual) Lymphocytes # (Manual) Monocytes # (Manual) Eosinophils # (Manual) Metamyelocytes # Myelocytes # Platelet Estimate Plt Morphology Comment RBC Morphology PT 13.6 H INR 1.1 APTT 31.2 D-Dimer 2724 VBG pH VBG pCO2 VBG pO2 VBG HCO3 VBG O2 Saturation VBG Base Excess Sodium Potassium Chloride Carbon Dioxide Anion Gap BUN Creatinine Estim Creat Clear Calc Estimated GFR Random Glucose Calcium 7.8 L Phosphorus Magnesium Ferritin 726 H Lactate Dehydrogenase C-Reactive Protein B-Natriuretic Peptide 60 Urine Color Urine Appearance Urine pH Ur Specific [place] Urine Protein Urine Glucose (UA) Urine Ketones Urine Blood Urine Nitrite Ur Leukocyte Esterase Urine RBC Urine WBC Ur Squamous Epith Cells Urine Bacteria 07/21/20 07/21/20 05:42 12:05 WBC RBC Hgb Hct MCV MCH MCHC RDW Plt Count MPV Immature Gran % (Auto) Neut % (Auto) Lymph % (Auto) [place] % (Auto) Eos % (Auto) Baso % (Auto) Lymph # (Auto) [place] # (Auto) Eos # (Auto) Baso # (Auto) Abs Immat Gran (auto) Absolute Neuts (auto) Absolute Nucleated RBC Nucleated RBC % (auto) Neutrophils % (Manual) Band Neutrophils % Lymphocytes % (Manual) Monocytes % (Manual) Eosinophils % (Manual) Metamyelocytes % Myelocytes % Abs Neuts (Manual) Lymphocytes # (Manual) Monocytes # (Manual) Eosinophils # (Manual) Metamyelocytes # Myelocytes # Platelet Estimate Plt Morphology Comment RBC Morphology PT INR APTT D-Dimer VBG pH 7.43 VBG pCO2 60 VBG pO2 72 VBG HCO3 40 VBG O2 Saturation 92.0 VBG Base Excess 13.4 Sodium 147 H Potassium 4.2 Chloride 107 Carbon Dioxide 32 H Anion Gap 12 BUN 47 H Creatinine 1.18 Estim Creat Clear Calc 68.5 Estimated GFR > 60 Random Glucose 167 H Calcium 7.6 L Phosphorus Magnesium Ferritin Lactate Dehydrogenase C-Reactive Protein B-Natriuretic Peptide Urine Color Urine Appearance Urine pH Ur Specific [place] Urine Protein Urine Glucose (UA) Urine Ketones Urine Blood Urine Nitrite Ur Leukocyte Esterase Urine RBC Urine WBC Ur Squamous Epith Cells Urine Bacteria Microbiology Microbiology Results: Microbiology 07/20/20 22:10 Urine [place] Urine Culture - Preliminary No growth to date. 07/14/20 06:55 Blood - Venous Blood Culture - Final No growth after 5 days. 07/14/20 07:02 Blood - Venous Blood Culture - Final No growth after 5 days. 07/16/20 20:37 Blood - Venous Blood Culture - Preliminary No growth after 48 hours. 07/16/20 20:37 Blood - Venous Blood Culture - Preliminary No growth after 48 hours. 07/17/20 04:30 Urine clean catch - Clean Catch Midstream Urine Culture - Final No growth. 07/10/20 22:43 Blood - Venous Blood Culture - Final No growth after 5 days. 07/10/20 22:39 Blood - Venous Blood Culture - Final No growth after 5 days. 07/11/20 Unknown Urine clean catch - Clean Catch Midstream Urine Culture - Final Progress Note: A&P Assessment and plan (1) Hypernatremia: Status: Acute (2) Delirium: Problem details: He has been intubated He has had a fever yesterday and was started on Zosyn and Vancomycin Status: Acute (3) ARDS (adult respiratory distress syndrome): Status: Acute (4) Respiratory failure with hypoxia and hypercapnia: Status: Acute (5) MAURO (acute kidney injury): Status: Acute (6) Pneumonia due to COVID-19 virus: Status: Acute (7) COVID-19: Status: Acute (8) Rhabdomyolysis: Status: Acute (9) Weakness: Status: Acute (10) BPH w urinary obs/LUTS: Problem details: Patient ability placing Mont[place]z catheter attempted placement of a catheter after injecting the urethra with lidocaine jelly that he had catheter hung up therefore tried a 18 [place] coude which still would not pass in the patient's bladder. Tried placing a Glidewire by itself which would not pass into the patient's bladder. Subsequently the patient underwent cystoscopy at the bedside prepped and draped usual fashion lidocaine jelly per urethra and subsequently underwent cystoscopy patient had normal appearing urethra has posterior false passage and the bulbar urethra has trilobar hypertrophy of the prostate with evidence of previous laser TURP once the kidney at cystoscope was [place] into the patient's bladder a Glidewire was placed through the cystoscope and subsequently a 16 [place] tip catheter was advanced without any difficulty patient's bladder with drainage of clear urine. Patient's balloon was blown up without any difficulty the catheter was at the hub on the meatus. The patient tolerated seizure well there were no complications. Status: Acute (11) Complicated urinary tract infection: Status: Acute Assessment and Plan: Will continue support as above Time Spent With Patient Time: Total time spent is greater than 50% in coordination of care (as documented) at patient's floor/unit and/or counseling patient: Total time spent with greater than 50% in coordination of care (as documented) at patient's floor/unit and/or counseling patient:: 35
[2020-07-21] MEDS: propofoL 1,000 MG/100 ML VIAL 19.28 MG IVCONT ×2 (17:46→23:08)
--- NOTE | 2020-07-21 18:28 | PC.NURSE ---
S/E Afebrile Pupils 3mm, PERRLA Sedated on Propofol only Positive cough and gag SR HR 60-80's, no ectopy Bleeding from left nares, gums, and meatus - 1000 Lovenox held CVP 8-10 Vent settings: AC 20/550/10/60% LS dim throughout, no inline secreations CXR completed Started on Promote - tolerating well NA 150 - 240cc water flushed q4hr ordered - 1200 NA 147 Patient had two large liquid BM's, dark brown Urine output concentrated w/ sediment, approx 50-75cc/hr Stg II bilater buttocks appears to be improving - repo q2hr, barrier cream, air loss mattress, bathed Family updated
--- NOTE | 2020-07-21 20:21 | PC.RT ---
upon arrival pt on current vent settings tolerating well , pt is warm to touch, sx amll amount in line and orally
[2020-07-21 20:33] LABS: Anion Gap 12 (12-20); Blood Urea Nitrogen 51 mg/dL (9-16); Calcium 7.6 mg/dL (8.4-10.2); Carbon Dioxide 32 mmol/L (22-29); Chloride 108 mmol/L (96-108); Creatinine Clr Calc Pharmacy 74.8; Estimated Glomerular Filt Rate > 60; Glucose Random 144 mg/dL (60-115); Potassium 4.4 mmol/l (3.3-5.1); Sodium 148 mmol/L (135-145)
[2020-07-21] MEDS: Enoxaparin Sodium 120 MG/0.8 ML SYRINGE 105 MG SUBCUT (23:08)
[2020-07-22] VITALS (30 sets, daily range): BP systolic 117–144; BP diastolic 64–76; PULSE 74–104; RESP 19–78; TEMP 36.4–37.2; O2SAT 90–97; BMI 36.2
[2020-07-22] MEDS: propofoL 1,000 MG/100 ML VIAL 19.28 MG IVCONT ×5 (03:36→20:48)
--- NOTE | 2020-07-22 05:16 | PC.NURSE ---
Patient has numerous breaches in skin integrity. Buttocks is red, macerated, and peeling, with multiple open areas. Strict side to side repositioning with prevalon system, airloss bed, and barrier cream.
[2020-07-22 05:35] LABS: MANUAL DIFF FLAG NO
[2020-07-22 05:36] LABS: Base Excess VBG 19.6 mmol/L; HCO3 VBG 46 mmol/L; PCO2 VBG 60 mmHg; PO2 VBG 55 mmHg; pH VBG 7.45 (7.32-7.43)
[2020-07-22 05:38] LABS: Basophils Percent Auto 0.3 % (0-2); Eosinophils Absolute Auto 0.1 X10*3/uL (0.0-0.4); Eosinophils Percent Auto 0.6 % (0-4); Hematocrit 37.1 % (42-52); Hemoglobin 11.7 g/dl (14.0-18.0); Imm Gran Abs Auto 0.58 X10*3/uL (0.00-0.03); Imm Gran Pct Auto 4.9 % (0.0-0.4); Lymphocytes Percent Auto 16.5 % (20-40); Mean Corpuscular HGB Conc 31.5 g/dl (31.0-36.0); Mean Corpuscular Hemoglobin 29.9 pg (27.0-33.0); Mean Corpuscular Volume 94.9 fL (80-98); Mean Platelet Volume 10.8 fL (9.4-12.4); Monocytes Absolute Auto 0.7 X10*3/uL (0.1-1.2); Neutrophils Absolute Auto 8.6 X10*3/uL (2.0-8.3); Neutrophils Percent Auto 71.7 % (45-73); Platelet Count 146 X10*3/uL (160-400); Red Blood Count 3.91 X10*6/uL (4.60-5.80)
[2020-07-22 05:45] LABS: INTERNATIONAL NORM RATIO 1.1 (0.9-1.1); Prothrombin Time 12.8 SEC (10.8-13.0)
[2020-07-22 05:48] LABS: Partial Thromboplastin Time 34.5 SEC (24.1-38.0)
[2020-07-22 05:56] LABS: D Dimer 4042 NG/ML
[2020-07-22 06:00] LABS: Anion Gap 13 (12-20); Blood Urea Nitrogen 56 mg/dL (9-16); Calcium 7.9 mg/dL (8.4-10.2); Carbon Dioxide 31 mmol/L (22-29); Chloride 107 mmol/L (96-108); Creatinine Clr Calc Pharmacy 75.5; Estimated Glomerular Filt Rate > 60; Glucose Random 135 mg/dL (60-115); Lactate Dehydrogenase 414 U/L (118-273); Magnesium 2.9 mg/dL (1.6-2.6); Phosphorus 3.1 mg/dL (2.7-4.5); Potassium 4.3 mmol/l (3.3-5.1); Sodium 147 mmol/L (135-145)
[2020-07-22 06:21] LABS: Ferritin 628 ng/mL (20-250)
[2020-07-22] MEDS: dexAMETHasone sod phosphate 4 MG/ML VIAL 6 MG IVPUSH (08:36)
[2020-07-22] MEDS: 0.9 % Sodium Chloride Flush 3 ML SYRINGE IVFLUSH ×3 (08:37→22:55)
--- NOTE | 2020-07-22 11:26 | MHC.CLN ---
RE: CONSULT PT TOLERATING PROMOTE AT MAX GOAL RATE 50CC/HR WITH 240CC FREE WATER Q 4 HRS PROVIDES 1200KCALS (1709KCALS WITH SEDATION; 23KCALS/KG), 75G PROTEIN (1.0G/KG), 2447CC TOTAL WATER FROM FORMULA AND FLUSHES (33CC/KG) WILL ADD THOMAS TO PROMOTE WOUND HEALING MONITOR TOLERANCE, RESIDUALS AND LYTES
[2020-07-22] MEDS: Lactulose 20 GM/30 ML SOLUTION 30 GM PO (12:27)
[2020-07-22] MEDS: Albumin Human 25 % 100 ML IV ×3 (12:27→22:54)
[2020-07-22] MEDS: Furosemide 40 MG/4 ML VIAL IVPUSH ×2 (12:28→17:35)
--- NOTE | 2020-07-22 15:16 | MHC.CM.PN ---
Calls placed to pts HCP Amber and Efra: Discussed possible STR once weaned as pt resides alone. Both receptive to referrals based on payor. If pt is able to return to home, Amber would like pt to stay with her as her residence is single level and she could assist with care needs. D/C plan - tentative: STR following C d/c vs home (with Amber and VNA).
--- NOTE | 2020-07-22 15:20 | PM.CCPN ---
Subjective Subjective Date of Service: 07/22/20 Interval History: 75-year-old gentleman with underlying history of BPH, hypertension admitted 07/11/2020 with weakness secondary to COVID-19. Hospital course complicated by progressive hypoxic respiratory failure requiring intubation on 07/20/2020. Hospital course further complicated by acute renal failure. No events overnight. Physical Exam Vital Signs: Vital Signs: Last Vital Signs Temp 98.5 F 07/22/20 12:00 Pulse 87 07/22/20 14:00 Resp 20 07/22/20 14:00 BP 127/64 07/22/20 14:00 Pulse Ox 93 07/22/20 14:00 Body Mass Index 36.2 Const: General: no acute distress and other (Sedated on the vent, wakes up with sedation vacation) Eyes: Sclerae: sclerae normal EOM: EOMs intact bilaterally Neck: Neck: Yes no lymphadenopathy, Yes trachea midline and Yes supple Resp: Auscultation: crackles (Diffuse bilateral) Cardio: Rate: regular rate Rhythm: regular rhythm Heart sounds: no gallops, no murmurs and no rubs GI: Palpation (GI): Soft to palpation and Other GI palpation findings present ( Nontender) Auscultation: normal bowel sounds Extrem: General: No clubbing, No cyanosis and Yes edema (2+ bilateral) Objective Data Labs CBC & Chem 7: 07/22/20 05:25 07/22/20 05:25 Labs: Laboratory Results - last 24 hr 07/21/20 07/22/20 07/22/20 19:52 05:25 05:25 WBC 12.0 H RBC 3.91 L Hgb 11.7 L Hct 37.1 L MCV 94.9 MCH 29.9 MCHC 31.5 RDW 15.0 Plt Count 146 L D MPV 10.8 Immature Gran % (Auto) 4.9 H Neut % (Auto) 71.7 Lymph % (Auto) 16.5 L [place] % (Auto) 6.0 Eos % (Auto) 0.6 Baso % (Auto) 0.3 Lymph # (Auto) 2.0 [place] # (Auto) 0.7 Eos # (Auto) 0.1 Baso # (Auto) 0.0 Abs Immat Gran (auto) 0.58 H Absolute Neuts (auto) 8.6 H Absolute Nucleated RBC 0.000 Nucleated RBC % (auto) 0.0 PT 12.8 INR 1.1 APTT 34.5 D-Dimer 4042 VBG pH VBG pCO2 VBG pO2 VBG HCO3 VBG O2 Saturation VBG Base Excess Sodium 148 H Potassium 4.4 Chloride 108 Carbon Dioxide 32 H Anion Gap 12 BUN 51 H Creatinine 1.08 Estim Creat Clear Calc 74.8 Estimated GFR > 60 Random Glucose 144 H Calcium 7.6 L Phosphorus Magnesium Ferritin Lactate Dehydrogenase 07/22/20 07/22/20 05:25 05:25 WBC RBC Hgb Hct MCV MCH MCHC RDW Plt Count MPV Immature Gran % (Auto) Neut % (Auto) Lymph % (Auto) [place] % (Auto) Eos % (Auto) Baso % (Auto) Lymph # (Auto) [place] # (Auto) Eos # (Auto) Baso # (Auto) Abs Immat Gran (auto) Absolute Neuts (auto) Absolute Nucleated RBC Nucleated RBC % (auto) PT INR APTT D-Dimer VBG pH 7.45 H VBG pCO2 60 VBG pO2 55 VBG HCO3 46 VBG O2 Saturation 83.0 VBG Base Excess 19.6 Sodium 147 H Potassium 4.3 Chloride 107 Carbon Dioxide 31 H Anion Gap 13 BUN 56 H Creatinine 1.07 Estim Creat Clear Calc 75.5 Estimated GFR > 60 Random Glucose 135 H Calcium 7.9 L Phosphorus 3.1 Magnesium 2.9 H Ferritin 628 H Lactate Dehydrogenase 414 H Microbiology Microbiology Results: Microbiology 07/20/20 22:10 Urine [place] Urine Culture - Final No growth. 07/16/20 20:37 Blood - Venous Blood Culture - Final No growth after 5 days. 07/16/20 20:37 Blood - Venous Blood Culture - Final No growth after 5 days. 07/14/20 06:55 Blood - Venous Blood Culture - Final No growth after 5 days. 07/14/20 07:02 Blood - Venous Blood Culture - Final No growth after 5 days. 07/17/20 04:30 Urine clean catch - Clean Catch Midstream Urine Culture - Final No growth. 07/10/20 22:43 Blood - Venous Blood Culture - Final No growth after 5 days. 07/10/20 22:39 Blood - Venous Blood Culture - Final No growth after 5 days. 07/11/20 Unknown Urine clean catch - Clean Catch Midstream Urine Culture - Final Progress Note: A&P Assessment and plan (1) ARDS (adult respiratory distress syndrome): Status: Acute Assessment and Plan: Assessment: 75-year-old gentleman with underlying history of hypertension and BPH admitted with weakness secondary to COVID-19 with hospital course complicated by progressive hypoxemia requiring intubation and ventilatory support. Plan: Neuro: No acute issues. Cardiac: No acute issues. Pulmonary: Acute hypoxic respiratory failure secondary to COVID-19 related ARDS. Continue to titrate off ventilatory support as tolerated. Renal: Acute renal failure secondary to COVID-19, improving. Non oliguric. Continue to monitor renal indices and urine output. Endo: No acute issues. GI: No acute issues. ID: COVID-19, dexamethasone for 10 days. Heme/Onc: No acute issues. Psych: No acute issues. Miscellaneous: No acute issues. Prophylaxis: Lovenox, ppi Diet: Tube feeds Critical care time spent: 60 minutes (2) Respiratory failure with hypoxia and hypercapnia: Status: Acute (3) MAURO (acute kidney injury): Status: Acute (4) COVID-19: Status: Acute Time Spent With Patient Total time spent with greater than 50% in coordination of care (as documented) at patient's floor/unit and/or counseling patient:: 0 Critical Care Time Critical Care Time (minutes): 60
--- NOTE | 2020-07-22 15:21 | PC.NURSE ---
Pt intubated and sedated, on propofol at 30mcg/kg/min, vent settings AC 20, Tv 450, PEEP 10, FiO2 40%, min vol. 12L/min, SaO2 94%. Lungs clear upper and RML, FC bases bilat. Sedation vacation at 1300 to check neuro status, propofol temp off, pt followed commands by squeezing fingers and wiggling toes, made eye contact, reached for ET tube. Pt NSR 60-80s, bp stable. Stage 2 pressure ulcer buttocks, barrier cream applied. Nares with crusty blood and small penile bleeding from meatus. VSS. Will continue to monitor. Bed locked and in lowest position.
--- NOTE | 2020-07-22 20:25 | PC.NURSE ---
assumed care at 15:00. Patient noted to have blood tinged secretions orally and in the inline secretions, senior compliance officer aware and continuing to monitor. Patient with gastric residual of greater than 300 ccs; held TF about 1630, and senior compliance officer notified. This evening's Guille dose and H2O flush were also held due to large gastric residual. voided over 2 liters over 4 hours. BM and bath this shift. NSR on monitor, but subtle increase in T-wave amplitude noted between 1600 and 0800 strips; CONTINUOUS IMPROVEMENT COACH aware, continuing to monitor.
[2020-07-22] MEDS: Enoxaparin Sodium 40 MG/0.4 ML SYRINGE SUBCUT (20:48)
[2020-07-22] MEDS: Chlorhexidine Gluc Oral Rinse 15 ML MOUTHWASH BUCCAL (20:48)
[2020-07-23] VITALS (31 sets, daily range): BP systolic 113–147; BP diastolic 50–84; PULSE 70–93; RESP 13–30; TEMP 37–38; O2SAT 2–96; BMI 36.2
[2020-07-23] MEDS: propofoL 1,000 MG/100 ML VIAL 19.28 MG IVCONT ×3 (02:13→10:55)
[2020-07-23 05:34] LABS: PCO2 VBG 80 mmHg; pH VBG 7.49 (7.32-7.43)
[2020-07-23 05:35] LABS: Base Excess VBG 32.3 mmol/L; HCO3 VBG 60 mmol/L; PO2 VBG 61 mmHg
[2020-07-23 05:44] LABS: Hemoglobin 10.6 g/dl (14.0-18.0); Mean Corpuscular HGB Conc 31.2 g/dl (31.0-36.0); Mean Corpuscular Hemoglobin 29.9 pg (27.0-33.0); Mean Corpuscular Volume 95.8 fL (80-98); Mean Platelet Volume 11.8 fL (9.4-12.4); Red Blood Count 3.55 X10*6/uL (4.60-5.80); Red Cell Distribution Width 15.2 % (11.0-16.0); White Blood Count 10.3 X10*3/uL (4.8-10.8)
[2020-07-23] MEDS: Chlorhexidine Gluc Oral Rinse 15 ML MOUTHWASH BUCCAL (05:45)
[2020-07-23] MEDS: Albumin Human 25 % 100 ML IV (05:48)
[2020-07-23 05:58] LABS: Platelet Count 93 X10*3/uL (160-400)
[2020-07-23 06:11] LABS: Alanine Aminotransferase 34 U/L (0-40); Albumin Level 3.2 g/dL (3.5-5.0); Alkaline Phosphatase 77 U/L (39-117); Anion Gap 13 (12-20); Aspartate Amino Transferase 41 U/L (5-37); Bilirubin Total 1.2 mg/dL (0.0-1.0); Blood Urea Nitrogen 55 mg/dL (9-16); Carbon Dioxide 36 mmol/L (22-29); Chloride 104 mmol/L (96-108); Creatinine Clr Calc Pharmacy 70.3; Estimated Glomerular Filt Rate > 60; Glucose Random 103 mg/dL (60-115); Magnesium 2.6 mg/dL (1.6-2.6); Phosphorus 4.1 mg/dL (2.7-4.5); Potassium 4.2 mmol/l (3.3-5.1); Sodium 149 mmol/L (135-145); Total Protein 5.6 g/dL (6.5-8.0)
[2020-07-23 06:39] LABS: Atypical Lymph Absolute Manual 0.2 x10*3/uL; Atypical Lymphs Percent Manual 2 % (0-6); Band Neutrophils Percent 1 % (3-5); Lymphocytes Absolute Manual 1.2 X10*3/uL (0.6-4.8); Lymphocytes Percent Manual 12 % (20-40); Metamyelocytes Absolute 0.4 X10*3/uL; Metamyelocytes Percent 4 %; Monocytes Absolute Manual 0.7 X10*3/uL (0.0-1.2); Monocytes Percent Manual 7 % (2-11); Myelocytes Absolute 0.2 X10*/uL; Myelocytes Percent 2 %; Neutrophils Absolute Manual 7.3 X10*3/uL (2.2-7.9); Neutrophils Percent Manual 70 % (45-73)
[2020-07-23 06:40] LABS: Microcytosis 1+; RBC Morphology NOTED
[2020-07-23 06:41] LABS: Acanthocytes 1+; Platelet Estimate DECREASED (NORMAL); Platelet Morphology Comment NORMAL; Smudge Cells PRESENT; Toxic Granulation PRES; Toxic Vacuolation PRESENT
[2020-07-23] MEDS: dexAMETHasone sod phosphate 4 MG/ML VIAL 6 MG IVPUSH (10:16)
[2020-07-23] MEDS: Furosemide 40 MG/4 ML VIAL IVPUSH (10:16)
[2020-07-23] MEDS: Lactulose 20 GM/30 ML SOLUTION 30 GM PO (10:16)
[2020-07-23] MEDS: 0.9 % Sodium Chloride Flush 3 ML SYRINGE IVFLUSH ×2 (10:17→17:26)
--- NOTE | 2020-07-23 13:49 | PC.NURSE ---
Pt intubated and sedated this morning, propofol was running at 30mcg/kg/min, vent settings adjusted to volume control rate 20, tv 450, PEEP 5, FiO2 40%. 1105 propofol turned off and placed on pressure support 10/45/5 with RT at bedside. Pt tolerated well, RR 21, SaO2 92%. Pt was able to follow commands and track with eyes, positive cough and gag. MD notified, OG residual of 30ml removed for aspiration precautions, tube feeds removed, oropharynx suctioned with yankeur, inline suctioning completed, was then extubated at 1320 with RT and MD at bedside, OG removed. Pt had strong cough reflex post extubation and was suctioned for thick sputum. Placed on hiflow 40L/min FiO2 55%. Restraints D/C at 1330. Mouth care given. Son barbara alf. Bed locked and in lowest position. Call johnson in reach.
--- NOTE | 2020-07-23 14:39 | P.PNCC_ITS ---
Subjective Subjective Date of Service: 07/23/20 Interval History: 75-year-old gentleman with underlying history of BPH, hypertension admitted 07/11/2020 with weakness secondary to COVID-19. Hospital course complicated by progressive hypoxic respiratory failure requiring intubation on 07/20/2020. Hospital course further complicated by acute renal failure. No events overnight. Extubated today without complications. Physical Exam Vital Signs: Vital Signs: Last Vital Signs Temp 100.1 F 07/23/20 14:00 Pulse 85 07/23/20 14:00 Resp 13 07/23/20 14:00 BP 147/71 H 07/23/20 14:00 Pulse Ox 93 07/23/20 14:00 Body Mass Index 36.2 Const: General: no acute distress, alert and awake Eyes: Sclerae: sclerae normal EOM: EOMs intact bilaterally Neck: Neck: Yes no lymphadenopathy, Yes trachea midline and Yes supple Resp: Effort & Inspection: normal respiratory effort (On high-flow nasal cannula) and no respiratory distress Auscultation: crackles (Bibas[place]) Cardio: Rate: regular rate Rhythm: regular rhythm Heart sounds: no gallops, no murmurs and no rubs GI: Palpation (GI): Soft to palpation and Other GI palpation findings present ( Nontender) Auscultation: normal bowel sounds Extrem: General: No clubbing, No cyanosis and Yes edema (Trace bilateral) Objective Data Labs CBC & Chem 7: 07/23/20 05:15 07/23/20 05:15 Labs: Laboratory Results - last 24 hr 07/23/20 07/23/20 07/23/20 05:15 05:15 05:20 WBC 10.3 RBC 3.55 L Hgb 10.6 L Hct 34.0 L MCV 95.8 MCH 29.9 MCHC 31.2 RDW 15.2 Plt Count 93 L D MPV 11.8 Immature Gran % (Auto) Cancelled Neut % (Auto) Cancelled Lymph % (Auto) Cancelled [place] % (Auto) Cancelled Eos % (Auto) Cancelled Baso % (Auto) Cancelled Lymph # (Auto) Cancelled [place] # (Auto) Cancelled Eos # (Auto) Cancelled Baso # (Auto) Cancelled Abs Immat Gran (auto) Cancelled Absolute Neuts (auto) Cancelled Absolute Nucleated RBC 0.000 Nucleated RBC % (auto) 0.0 Neutrophils % (Manual) 70 Band Neutrophils % 1 L Lymphocytes % (Manual) 12 L Atypical Lymphs % (Man) 2 Monocytes % (Manual) 7 Metamyelocytes % 4 Myelocytes % 2 Abs Neuts (Manual) 7.3 Lymphocytes # (Manual) 1.2 Atyp Lymphs # (Manual) 0.2 Monocytes # (Manual) 0.7 Metamyelocytes # 0.4 Myelocytes # 0.2 Smudge Cells PRESENT Toxic Granulation PRES Toxic Vacuolation PRESENT Platelet Estimate DECREASED Plt Morphology Comment NORMAL RBC Morphology NOTED Microcytosis 1+ Acanthocytes (Spur) 1+ VBG pH 7.49 H VBG pCO2 80 VBG pO2 61 VBG HCO3 60 VBG O2 Saturation 88.0 VBG Base Excess 32.3 Sodium 149 H Potassium 4.2 Chloride 104 Carbon Dioxide 36 H Anion Gap 13 BUN 55 H Creatinine 1.15 Estim Creat Clear Calc 70.3 Estimated GFR > 60 Random Glucose 103 Calcium 8.0 L Phosphorus 4.1 Magnesium 2.6 Total Bilirubin 1.2 H AST 41 H D ALT 34 Alkaline Phosphatase 77 D Total Protein 5.6 L Albumin 3.2 L Microbiology Microbiology Results: Microbiology 07/20/20 22:10 Urine [place] Urine Culture - Final No growth. 07/16/20 20:37 Blood - Venous Blood Culture - Final No growth after 5 days. 07/16/20 20:37 Blood - Venous Blood Culture - Final No growth after 5 days. 07/14/20 06:55 Blood - Venous Blood Culture - Final No growth after 5 days. 07/14/20 07:02 Blood - Venous Blood Culture - Final No growth after 5 days. 07/17/20 04:30 Urine clean catch - Clean Catch Midstream Urine Culture - Final No growth. 07/10/20 22:43 Blood - Venous Blood Culture - Final No growth after 5 days. 07/10/20 22:39 Blood - Venous Blood Culture - Final No growth after 5 days. 07/11/20 Unknown Urine clean catch - Clean Catch Midstream Urine Culture - Final Progress Note: A&P Assessment and plan (1) ARDS (adult respiratory distress syndrome): Status: Acute Assessment and Plan: Assessment: 75-year-old gentleman with underlying history of hypertension and BPH admitted with weakness secondary to COVID-19 with hospital course complicated by progressive hypoxemia requiring intubation and ventilatory support. Plan: Neuro: No acute issues. Cardiac: No acute issues. Pulmonary: Acute hypoxic respiratory failure secondary to COVID-19 related ARDS. Extubated today to high-flow nasal cannula. Continue to titrate off supplemental oxygen as tolerated. Renal: Acute renal failure secondary to COVID-19, improving. Non oliguric. Continue to monitor renal indices and urine output. Endo: No acute issues. GI: No acute issues. ID: COVID-19, dexamethasone for 10 days. Heme/Onc: No acute issues. Psych: No acute issues. Miscellaneous: No acute issues. Prophylaxis: Lovenox, does not require GI prophylaxis Diet: Pending swallow evaluation Critical care time spent: 60 minutes (2) Respiratory failure with hypoxia and hypercapnia: Status: Acute (3) COVID-19: Status: Acute Time Spent With Patient Total time spent with greater than 50% in coordination of care (as documented) at patient's floor/unit and/or counseling patient:: 0 Critical Care Time Critical Care Time (minutes): 60
[2020-07-23] MEDS: Enoxaparin Sodium 40 MG/0.4 ML SYRINGE SUBCUT (23:19)
[2020-07-24] VITALS (29 sets, daily range): BP systolic 113–152; BP diastolic 60–80; PULSE 67–107; RESP 17–30; TEMP 37.4–39.1; O2SAT 86–94
[2020-07-24] MEDS: 0.9 % Sodium Chloride Flush 3 ML SYRINGE IVFLUSH ×3 (01:18→17:31)
[2020-07-24 06:10] LABS: MANUAL DIFF FLAG NO
[2020-07-24 06:12] LABS: Basophils Percent Auto 0.1 % (0-2); Eosinophils Absolute Auto 0.1 X10*3/uL (0.0-0.4); Eosinophils Percent Auto 0.4 % (0-4); Hematocrit 37.8 % (42-52); Hemoglobin 11.6 g/dl (14.0-18.0); Imm Gran Abs Auto 0.36 X10*3/uL (0.00-0.03); Imm Gran Pct Auto 2.6 % (0.0-0.4); Lymphocytes Absolute Auto 1.8 X10*3/uL (1.2-4.9); Lymphocytes Percent Auto 13.3 % (20-40); Mean Corpuscular HGB Conc 30.7 g/dl (31.0-36.0); Mean Corpuscular Hemoglobin 29.4 pg (27.0-33.0); Mean Corpuscular Volume 95.9 fL (80-98); Mean Platelet Volume 10.7 fL (9.4-12.4); Monocytes Percent Auto 7.6 % (2-11); Neutrophils Absolute Auto 10.4 X10*3/uL (2.0-8.3); Platelet Count 112 X10*3/uL (160-400); Red Blood Count 3.94 X10*6/uL (4.60-5.80); Red Cell Distribution Width 14.9 % (11.0-16.0); White Blood Count 13.7 X10*3/uL (4.8-10.8)
--- NOTE | 2020-07-24 06:14 | PC.NURSE ---
Son Efra called in and would like to have face time communication later in the day. pt is drowsy/somnolent. awakens to voice. will answer 1-2 word responses. speech is slow and basic. he will avelar purposefully and weakly. he will obey instruction. complexion pale. oral mucosa crusted with ulcerations noted on tongue. vigorous oral care rendered q 1hr over night. pt is maintained on supplemental o2 via high flow nasal pillow. current settings fio2 70% flow 40 lpm. breath sounds coarse with scattered exp rhonchi. pt does have difficulty mobilizing secreations. he has required nasopharygeal suctioning via left nasal trumpet. suctioned for copious amounts of loose thin creamy phelgm. ecg displays sr. with activity apical heart rate will increase in the low 100s bpm. no temp. npo. pt is aspiration precautions.
[2020-07-24 06:30] LABS: pH VBG 7.48 (7.32-7.43)
[2020-07-24 06:31] LABS: Base Excess VBG 29.1 mmol/L; HCO3 VBG 57 mmol/L; PCO2 VBG 76 mmHg; PO2 VBG 48 mmHg
--- NOTE | 2020-07-24 06:37 | PC.NURSE ---
pt is sedated under the influences of propofol/fentanyl. he has emergence from sedation with brief pause. pt will attempt to localize hands toward face. pt has been febrile 103-103.6. tylenol 650 mg ogt x2. ice packs applied to axilla and groin. siginificant stage 2 breakdown on right gluteal cleft and coccyx. breath sounds diminished throughout. ecg displays sr. hemodynamically stable. trickling tube feedings promote at 10ml/hr. 300 ml free h20 q 6hr. u/o 100-120 ml/hr.
[2020-07-24 06:40] LABS: Albumin Level 3.5 g/dL (3.5-5.0); Anion Gap 11 (12-20); Blood Urea Nitrogen 54 mg/dL (9-16); Calcium 8.3 mg/dL (8.4-10.2); Carbon Dioxide 39 mmol/L (22-29); Chloride 104 mmol/L (96-108); Creatinine Clr Calc Pharmacy 71.5; Estimated Glomerular Filt Rate > 60; Glucose Random 116 mg/dL (60-115); Magnesium 2.9 mg/dL (1.6-2.6); Phosphorus 3.3 mg/dL (2.7-4.5); Potassium 4.4 mmol/l (3.3-5.1); Sodium 150 mmol/L (135-145)
[2020-07-24] MEDS: Furosemide 40 MG/4 ML VIAL 20 MG IVPUSH (07:40)
[2020-07-24] MEDS: dexAMETHasone sod phosphate 4 MG/ML VIAL 6 MG IVPUSH (07:40)
--- NOTE | 2020-07-24 10:40 | MHC.CLN ---
F/U PT EXTUBATED DIET RX: CURRENTLY NPO PENDING SWALLOW EVAL IF DIET TO ADVANCE; WILL NEED ENSURE/THOMAS SUPPLEMENT TO INCREASE PO PROTEIN TO SUPPORT WOUND HEALING FOLLOWING
[2020-07-24] MEDS: Ampicillin Sodium/Sulbactam Na 3 GM in 0.9 % Sodium Chloride 100 ML IV ×3 (11:11→22:33)
--- NOTE | 2020-07-24 12:19 | P.PNCC_ITS ---
Subjective Subjective Date of Service: 07/24/20 Interval History: 75-year-old gentleman with underlying history of BPH, hypertension admitted 07/11/2020 with weakness secondary to COVID-19. Hospital course complicated by progressive hypoxic respiratory failure requiring intubation on 07/20/2020. Hospital course further complicated by acute renal failure. Extubated 05/23/2021 to 50% high-flow nasal cannula. Overnight with multiple small aspirations requiring placement of a nasal trumpet for intermittent nasotracheal suctioning and chest physiotherapy. Failed nursing bedside swallow evaluation. Physical Exam Vital Signs: Vital Signs: Last Vital Signs Temp 100.4 F 07/24/20 11:00 Pulse 94 07/24/20 12:00 Resp 24 H 07/24/20 12:00 BP 128/69 07/24/20 12:00 Pulse Ox 92 07/24/20 12:00 Body Mass Index 36.2 Const: General: no acute distress, lethargic (Arousable, follows simple commands) and other Orientation/consciousness: lethargic (Arousable, follows simple commands) Eyes: Sclerae: sclerae normal EOM: EOMs intact bilaterally Neck: Neck: Yes no lymphadenopathy, Yes trachea midline and Yes supple Resp: Effort & Inspection: normal respiratory effort (On high-flow nasal cannula) and no respiratory distress Auscultation: rhonchi lower bilaterally Cardio: Rate: regular rate Rhythm: regular rhythm Heart sounds: no gallops, no murmurs and no rubs GI: Palpation (GI): Soft to palpation and Other GI palpation findings present ( Nontender) Auscultation: normal bowel sounds Extrem: General: No clubbing, No cyanosis and Yes edema (1+ bilateral) Objective Data Labs CBC & Chem 7: 07/24/20 05:55 07/24/20 05:55 Labs: Laboratory Results - last 24 hr 07/24/20 07/24/20 07/24/20 05:55 05:55 05:55 WBC 13.7 H RBC 3.94 L Hgb 11.6 L Hct 37.8 L MCV 95.9 MCH 29.4 MCHC 30.7 L RDW 14.9 Plt Count 112 L MPV 10.7 Immature Gran % (Auto) 2.6 H Neut % (Auto) 76.0 H Lymph % (Auto) 13.3 L [place] % (Auto) 7.6 Eos % (Auto) 0.4 Baso % (Auto) 0.1 Lymph # (Auto) 1.8 [place] # (Auto) 1.0 Eos # (Auto) 0.1 Baso # (Auto) 0.0 Abs Immat Gran (auto) 0.36 H Absolute Neuts (auto) 10.4 H Absolute Nucleated RBC 0.000 Nucleated RBC % (auto) 0.0 VBG pH 7.48 H VBG pCO2 76 VBG pO2 48 VBG HCO3 57 VBG O2 Saturation 78.0 VBG Base Excess 29.1 Sodium 150 H Potassium 4.4 Chloride 104 Carbon Dioxide 39 H Anion Gap 11 L BUN 54 H Creatinine 1.13 Estim Creat Clear Calc 71.5 Estimated GFR > 60 Random Glucose 116 H Calcium 8.3 L Phosphorus 3.3 Magnesium 2.9 H Albumin 3.5 Microbiology Microbiology Results: Microbiology 07/20/20 22:10 Urine [place] Urine Culture - Final No growth. 07/16/20 20:37 Blood - Venous Blood Culture - Final No growth after 5 days. 07/16/20 20:37 Blood - Venous Blood Culture - Final No growth after 5 days. 07/14/20 06:55 Blood - Venous Blood Culture - Final No growth after 5 days. 07/14/20 07:02 Blood - Venous Blood Culture - Final No growth after 5 days. 07/17/20 04:30 Urine clean catch - Clean Catch Midstream Urine Culture - Final No growth. 07/10/20 22:43 Blood - Venous Blood Culture - Final No growth after 5 days. 07/10/20 22:39 Blood - Venous Blood Culture - Final No growth after 5 days. 07/11/20 Unknown Urine clean catch - Clean Catch Midstream Urine Culture - Final Progress Note: A&P Assessment and plan (1) ARDS (adult respiratory distress syndrome): Status: Acute Assessment and Plan: Assessment: 75-year-old gentleman with underlying history of hypertension and BPH admitted with weakness secondary to COVID-19 with hospital course complicated by progressive hypoxemia requiring intubation and ventilatory supp ort. Plan: Neuro: No acute issues. Cardiac: No acute issues. Pulmonary: Acute hypoxic respiratory failure secondary to COVID-19 related ARDS. Extubated 05/23/2021 high-flow nasal cannula. Continue to titrate off supplemental oxygen as tolerated. Now with small recurrent aspiration secondary to poor cough requiring chest physiotherapy and nasotracheal suctioning. Renal: Acute renal failure secondary to COVID-19, improving. Non oliguric. Continue to monitor renal indices and urine output. Endo: No acute issues. GI: No acute issues. ID: COVID-19, dexamethasone for 10 days. Aspiration pneumonitis versus pneumonia, started on empiric Unasyn. Heme/Onc: No acute issues. Psych: No acute issues. Miscellaneous: No acute issues. Prophylaxis: Lovenox, does not require GI prophylaxis Diet: Pending swallow evaluation Critical care time spent: 60 minutes (2) Respiratory failure with hypoxia and hypercapnia: Status: Acute (3) COVID-19: Status: Acute (4) Aspiration pneumonitis: Status: Acute Time Spent With Patient Total time spent with greater than 50% in coordination of care (as documented) at patient's floor/unit and/or counseling patient:: 0 Critical Care Time Critical Care Time (minutes): 60
--- NOTE | 2020-07-24 14:20 | MHC.SLORD ---
FIRE ENGINE OPERATOR attempted to see pt this afternoon. Per RN, pt is not appropriate for PO trials at this time due to reduced responsiveness. Pt was extubated yesterday and failed the nursing swallow screening. Pt reportedly is not managing secretions well at this time and requires nasopharyngeal suctioning. There are concerns of aspiration. FIRE ENGINE OPERATOR will re-attempt bedside swallow evaluation tomorrow morning. Name: Aaron Barnes Date of : 1945 Age: 75 Date of Registration: 07/11/20 Speech Language Pathology Order Status:
--- NOTE | 2020-07-24 14:55 | PC.NURSE ---
Pt lethargic, opens eyes to verbal stim briefly, able to mouth 1-2 words at most, rasp-dry voice, follows some commands squeezes fingers wiggles toes. Failed bedside swallow eval, will reassess tomorrow, head of bed greater than 30 degrees, asp. precaution. Start of shift highflow settings FiO2 75% at 40L/min. Changed to FiO2 60% at 25L/min to reduce aspiration risk, SaO2 88-91%. Pt noted to have increased exp. rhonchi all lobes, temp climbed to 102.3, question aspiration, MD started Unasyn 3G IVF. Pt temp trending down 100.4. Suctioned for copious amt wood/brown secretions through left nasal trumpet. Pt has strong cough, unable to fully clear secretions. STACH up to 135 with suctioning briefly, NSR baseline. Son Efra milner. Bed locked and in lowest position. Call johnson in reach.
[2020-07-24] MEDS: Enoxaparin Sodium 40 MG/0.4 ML SYRINGE SUBCUT (22:33)
[2020-07-25] VITALS (28 sets, daily range): BP systolic 125–146; BP diastolic 56–78; PULSE 56–106; RESP 17–31; TEMP 36.8–38.1; O2SAT 87–92
[2020-07-25] MEDS: 0.9 % Sodium Chloride Flush 3 ML SYRINGE IVFLUSH ×4 (00:13→23:36)
[2020-07-25] MEDS: Ampicillin Sodium/Sulbactam Na 3 GM in 0.9 % Sodium Chloride 100 ML IV ×4 (04:30→23:40)
[2020-07-25 05:53] LABS: MANUAL DIFF FLAG NO
[2020-07-25 05:55] LABS: Basophils Percent Auto 0.2 % (0-2); Eosinophils Percent Auto 0.1 % (0-4); Hematocrit 38.4 % (42-52); Hemoglobin 11.9 g/dl (14.0-18.0); Imm Gran Abs Auto 0.21 X10*3/uL (0.00-0.03); Imm Gran Pct Auto 1.3 % (0.0-0.4); Lymphocytes Percent Auto 12.6 % (20-40); Mean Corpuscular Hemoglobin 30.1 pg (27.0-33.0); Mean Corpuscular Volume 97.2 fL (80-98); Mean Platelet Volume 10.9 fL (9.4-12.4); Monocytes Absolute Auto 0.9 X10*3/uL (0.1-1.2); Monocytes Percent Auto 5.8 % (2-11); Neutrophils Absolute Auto 12.8 X10*3/uL (2.0-8.3); PCO2 VBG 64 mmHg; PO2 VBG 58 mmHg; Platelet Count 125 X10*3/uL (160-400); Red Blood Count 3.95 X10*6/uL (4.60-5.80); Red Cell Distribution Width 15.5 % (11.0-16.0); pH VBG 7.48 (7.32-7.43)
[2020-07-25 05:56] LABS: Base Excess VBG 21.5 mmol/L; HCO3 VBG 48 mmol/L
--- NOTE | 2020-07-25 06:00 | XR_ITS ---
EXAMINATION: XR CHEST CLINICAL INFORMATION: Hypoxia COMPARISON: 07/21/2020 TECHNIQUE: Frontal view of the chest was obtained. FINDINGS: Right internal jugular central venous catheter terminates near the cavoatrial junction. Cardiac leads overlie the chest. The lungs are well expanded. Diffuse bilateral patchy airspace opacities are noted which appear mildly increased from prior, particularly at the right upper lung. No pleural effusion or pneumothorax. The cardiomediastinal silhouette is unchanged, with a calcified aorta. XR/XR chest 1V IMPRESSION: Patchy bilateral diffuse airspace opacities. There is mild increase at the right upper lung when compared to prior.
[2020-07-25 06:31] LABS: Albumin Level 3.2 g/dL (3.5-5.0); Blood Urea Nitrogen 61 mg/dL (9-16); Calcium 8.1 mg/dL (8.4-10.2); Carbon Dioxide 33 mmol/L (22-29); Chloride 111 mmol/L (96-108); Creatinine Clr Calc Pharmacy 63.6; Estimated Glomerular Filt Rate 55; Glucose Random 116 mg/dL (60-115); Magnesium 3.1 mg/dL (1.6-2.6); Phosphorus 2.9 mg/dL (2.7-4.5); Potassium 4.1 mmol/l (3.3-5.1)
[2020-07-25 06:39] LABS: Anion Gap 17 (12-20); Sodium 157 mmol/L (135-145)
[2020-07-25] MEDS: dexAMETHasone sod phosphate 4 MG/ML VIAL 6 MG IVPUSH (08:15)
[2020-07-25] MEDS: Dextrose 5 % 1,000 ML 100 ML IVCONT ×2 (08:16→19:08)
--- NOTE | 2020-07-25 08:45 | XR_ITS ---
EXAMINATION: XR CHEST CLINICAL INFORMATION: Confirm KO tube placement. COMPARISON: 07/25/2020 TECHNIQUE: Frontal view of the chest was obtained. FINDINGS: Right internal jugular central venous catheter terminates over the cavoatrial junction. There is an enteric tube which extends into the stomach. Cardiac leads overlie the chest. The lungs are well expanded. Patchy bilateral diffuse airspace opacities are again noted, unchanged from the recent prior. No pneumothorax. No pleural effusion. The cardiomediastinal silhouette is unchanged. XR/XR chest 1V IMPRESSION: There is a new enteric tube extending into the stomach. Unchanged appearance of the lungs with diffuse bilateral airspace opacities.
--- NOTE | 2020-07-25 11:07 | MHC.CLN ---
F/U PT WITH TF RECOMMEND JEVITY AT MAX GOAL RATE 80CC/HR WITH 120CC FREE WATER FLUSHES Q 6HRS TO PROVIDE 2035KCALS (23KCALS/KG BASED ON CMW), 85G PROTEIN (1.1G/KG), 2083CC TOTAL WATER FROM FORMULA AND FLUSHES (28CC/KG BASED ON IBW) RECOMMEND TO ADD THOMAS TO SUPPORT WOUND HEALING MONITOR TOLERANCE, RESIDUALS AND LYTES
--- NOTE | 2020-07-25 13:48 | P.PNCC_ITS ---
Subjective Subjective Date of Service: 07/25/20 Interval History: 75-year-old gentleman with underlying history of BPH, hypertension admitted 07/11/2020 with weakness secondary to COVID-19. Hospital course complicated by progressive hypoxic respiratory failure requiring intubation on 07/20/2020. Hospital course further complicated by acute renal failure. Extubated 05/23/2021 to 50% high-flow nasal cannula. No events overnight. Failed speech therapy bedside swallow evaluation. [place] ogastric tube placed. Physical Exam Vital Signs: Vital Signs: Last Vital Signs Temp 98.2 F 07/25/20 11:54 Pulse 101 H 07/25/20 13:00 Resp 21 H 07/25/20 13:00 BP 131/77 07/25/20 13:00 Pulse Ox 91 L 07/25/20 13:00 Body Mass Index 36.2 Const: General: no acute distress, alert, awake and other (Weak) Eyes: Sclerae: sclerae normal EOM: EOMs intact bilaterally Neck: Neck: Yes no lymphadenopathy, Yes trachea midline and Yes supple Resp: Effort & Inspection: normal respiratory effort and no respiratory distress Auscultation: rhonchi (Diffuse bilateral) Cardio: Rate: regular rate Rhythm: regular rhythm Heart sounds: no gallops, no murmurs and no rubs GI: Palpation (GI): Soft to palpation and Other GI palpation findings present ( Nontender) Auscultation: normal bowel sounds Extrem: General: Yes no pedal edema, No clubbing and No cyanosis Objective Data Labs CBC & Chem 7: 07/25/20 05:42 07/25/20 05:42 Labs: Laboratory Results - last 24 hr 07/25/20 07/25/20 07/25/20 05:42 05:42 05:42 WBC 16.0 H RBC 3.95 L Hgb 11.9 L Hct 38.4 L MCV 97.2 MCH 30.1 MCHC 31.0 RDW 15.5 Plt Count 125 L MPV 10.9 Immature Gran % (Auto) 1.3 H Neut % (Auto) 80.0 H Lymph % (Auto) 12.6 L [place] % (Auto) 5.8 Eos % (Auto) 0.1 Baso % (Auto) 0.2 Lymph # (Auto) 2.0 [place] # (Auto) 0.9 Eos # (Auto) 0.0 Baso # (Auto) 0.0 Abs Immat Gran (auto) 0.21 H Absolute Neuts (auto) 12.8 H Absolute Nucleated RBC 0.000 Nucleated RBC % (auto) 0.0 VBG pH 7.48 H VBG pCO2 64 VBG pO2 58 VBG HCO3 48 VBG O2 Saturation 86.0 VBG Base Excess 21.5 Sodium 157 H Potassium 4.1 Chloride 111 H Carbon Dioxide 33 H Anion Gap 17 BUN 61 H Creatinine 1.27 Estim Creat Clear Calc 63.6 Estimated GFR 55 Random Glucose 116 H Calcium 8.1 L Phosphorus 2.9 Magnesium 3.1 H Albumin 3.2 L Microbiology Microbiology Results: Microbiology 07/20/20 22:10 Urine [place] Urine Culture - Final No growth. 07/16/20 20:37 Blood - Venous Blood Culture - Final No growth after 5 days. 07/16/20 20:37 Blood - Venous Blood Culture - Final No growth after 5 days. 07/14/20 06:55 Blood - Venous Blood Culture - Final No growth after 5 days. 07/14/20 07:02 Blood - Venous Blood Culture - Final No growth after 5 days. 07/17/20 04:30 Urine clean catch - Clean Catch Midstream Urine Culture - Final No growth. 07/10/20 22:43 Blood - Venous Blood Culture - Final No growth after 5 days. 07/10/20 22:39 Blood - Venous Blood Culture - Final No growth after 5 days. 07/11/20 Unknown Urine clean catch - Clean Catch Midstream Urine Culture - Final Progress Note: A&P Assessment and plan (1) Aspiration pneumonitis: Status: Acute Assessment and Plan: Assessment: 75-year-old gentleman with underlying history of hypertension and BPH admitted with weakness secondary to COVID-19 with hospital course complicated by progressive hypoxemia requiring intubation and ventilatory support. 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 Cardiac: No acute issues. Pulmonary: Acute hypoxic respiratory failure secondary to COVID-19 related JIAN S. Extubated 05/23/2021to high-flow nasal cannula. Continue to titrate off supplemental oxygen as tolerated. Now with small recurrent aspiration secondary to poor cough requiring chest physiotherapy and nasotracheal suctioning. Renal: Acute renal failure secondary to COVID-19, improving. Non oliguric. Continue to monitor renal indices and urine output. Endo: No acute issues. GI: Failed bedside swallow evaluation by speech therapy. Nasogastric tube placed. ID: COVID-19, dexamethasone for 10 days. Aspiration pneumonitis versus pneumonia, started on empiric Unasyn. Heme/Onc: No acute issues. Psych: No acute issues. Miscellaneous: No acute issues. Prophylaxis: Lovenox, does not require GI prophylaxis Diet: Tube feeds Critical care time spent: 60 minutes (2) ARDS (adult respiratory distress syndrome): Status: Acute (3) Respiratory failure with hypoxia and hypercapnia: Status: Acute (4) MAURO (acute kidney injury): Status: Acute (5) COVID-19: Status: Acute (6) Weakness: Status: Acute Time Spent With Patient Total time spent with greater than 50% in coordination of care (as documented) at patient's floor/unit and/or counseling patient:: 0 Critical Care Time Critical Care Time (minutes): 60
--- NOTE | 2020-07-25 14:16 | PC.NURSE ---
pt drowsy, attempting to talk but difficult to understand, mouth care performed and nasal suctioning by MD and RT, thick yellow/cream colored secretions noted, MD to place KO tube for feedings, speech at bedside in am- pt failed swallow eval, pt bathed, repositioned q2h, barrier cream applied to areas on buttocks, attempted to place IV but could not, MD aware, to keep TLC for now, sinclair intact, pt switched from high flow o2 to venturi mask at 55%, tolerating well o2 sat 90%, pt total care for ADLs at this time, will cont to monitor
[2020-07-25] MEDS: Albumin Human 25 % 100 ML IV ×2 (15:40→23:45)
[2020-07-25] MEDS: Enoxaparin Sodium 40 MG/0.4 ML SYRINGE SUBCUT (23:40)
[2020-07-26] VITALS (16 sets, daily range): BP systolic 120–148; BP diastolic 56–70; PULSE 49–78; RESP 16–24; TEMP 35.7–36.4; O2SAT 88–94; BMI 85.1
--- NOTE | 2020-07-26 00:06 | PC.NURSE ---
assumed care at 1500. Patient alert, drowsy, able to answer his name, date of , location correctly, and date with some assistance. Patient does speak in a way that is somewhat unclear at times, mumbles, slightly garbled, speaks quietly. Patient with ventimask at 55% and spo2 has been 90-95%. Breathing easy and regular with occasional cough, moist, patient reported productive but none visualized. Patient with coarse lung sounds throughout to auscultation, slightly dim bases. Patient denied [id number]
--- NOTE | 2020-07-26 00:09 | PC.NURSE ---
assumed care at 1500. patient alert, oriented to person, place, vague to situation and time. Patient speech somewhat hard to understand at times, somewhat garbled, clear when asked to repeat. Patient on ventimask 55%, spo2 90-95%, work of breathing seems regular, occasional moist loose cough, no sputum visualized, but patient reports productive cough. Lung sounds coarse throughout. Patient on aspiration precautions, NPO as failed swallow eval. Kaofeed tube to right nare, tube feed diet at 10 ccs / hour. Patient with hypernatremia, d5w at 100 ccs/hour continues. TLC dressing cleaned and changed.
[2020-07-26] MEDS: Albumin Human 25 % 100 ML IV ×2 (03:05→07:57)
[2020-07-26] MEDS: Ampicillin Sodium/Sulbactam Na 3 GM in 0.9 % Sodium Chloride 100 ML IV ×4 (03:45→21:32)
[2020-07-26 05:40] LABS: MANUAL DIFF FLAG NO
[2020-07-26 05:44] LABS: Base Excess VBG 18.9 mmol/L; HCO3 VBG 45 mmol/L; PCO2 VBG 65 mmHg; PO2 VBG 48 mmHg; pH VBG 7.45 (7.32-7.43)
[2020-07-26 06:15] LABS: Basophils Percent Auto 0.2 % (0-2); Eosinophils Percent Auto 0.2 % (0-4); Hematocrit 35.8 % (42-52); Hemoglobin 10.9 g/dl (14.0-18.0); Imm Gran Abs Auto 0.16 X10*3/uL (0.00-0.03); Imm Gran Pct Auto 1.3 % (0.0-0.4); Lymphocytes Absolute Auto 1.8 X10*3/uL (1.2-4.9); Lymphocytes Percent Auto 14.8 % (20-40); Mean Corpuscular HGB Conc 30.4 g/dl (31.0-36.0); Mean Corpuscular Hemoglobin 29.9 pg (27.0-33.0); Mean Corpuscular Volume 98.1 fL (80-98); Mean Platelet Volume 11.2 fL (9.4-12.4); Monocytes Absolute Auto 0.8 X10*3/uL (0.1-1.2); Monocytes Percent Auto 6.4 % (2-11); Neutrophils Absolute Auto 9.5 X10*3/uL (2.0-8.3); Neutrophils Percent Auto 77.1 % (45-73); Platelet Count 113 X10*3/uL (160-400); Red Blood Count 3.65 X10*6/uL (4.60-5.80); Red Cell Distribution Width 15.2 % (11.0-16.0); White Blood Count 12.3 X10*3/uL (4.8-10.8)
[2020-07-26 06:16] LABS: Albumin Level 3.4 g/dL (3.5-5.0); Anion Gap 11 (12-20); Blood Urea Nitrogen 60 mg/dL (9-16); Calcium 8.3 mg/dL (8.4-10.2); Carbon Dioxide 36 mmol/L (22-29); Chloride 111 mmol/L (96-108); Estimated Glomerular Filt Rate > 60; Glucose Random 138 mg/dL (60-115); Phosphorus 2.6 mg/dL (2.7-4.5); Potassium 3.4 mmol/l (3.3-5.1); Sodium 155 mmol/L (135-145)
[2020-07-26] MEDS: 0.9 % Sodium Chloride Flush 3 ML SYRINGE IVFLUSH ×3 (07:57→21:32)
[2020-07-26] MEDS: dexAMETHasone sod phosphate 4 MG/ML VIAL 6 MG IVPUSH (07:57)
[2020-07-26] MEDS: Potassium Phosphate 30 MMOL in 0.9 % Sodium Chloride 500 ML 85 MMOL IV (09:54)
--- NOTE | 2020-07-26 10:27 | PM.CCPN ---
Subjective Subjective Date of Service: 07/26/20 Interval History: 75-year-old gentleman with underlying history of BPH, hypertension admitted 07/11/2020 with weakness secondary to COVID-19. Hospital course complicated by progressive hypoxic respiratory failure requiring intubation on 07/20/2020. Hospital course further complicated by acute renal failure. Extubated 05/23/2021 to 50% high-flow nasal cannula. No events overnight. FiO2 titrated down to 50% venturi mask. Physical Exam Vital Signs: Vital Signs: Last Vital Signs Temp 96.8 F 07/26/20 09:00 Pulse 69 07/26/20 10:00 Resp 16 07/26/20 10:00 BP 129/63 07/26/20 10:00 Pulse Ox 90 L 07/26/20 10:00 Body Mass Index 36.2 Const: General: no acute distress, alert and awake Eyes: Sclerae: sclerae normal EOM: EOMs intact bilaterally Neck: Neck: Yes no lymphadenopathy, Yes trachea midline and Yes supple Resp: Effort & Inspection: normal respiratory effort and no respiratory distress Auscultation: crackles (Bibasilar) Cardio: Rate: regular rate Rhythm: regular rhythm Heart sounds: no gallops, no murmurs and no rubs GI: Palpation (GI): Soft to palpation and Other GI palpation findings present ( Nontender) Auscultation: normal bowel sounds Extrem: General: No clubbing, No cyanosis and Yes edema (Trace bilateral) Objective Data Labs CBC & Chem 7: 07/26/20 05:34 07/26/20 05:34 Labs: Laboratory Results - last 24 hr 07/26/20 07/26/20 07/26/20 05:34 05:34 05:34 WBC 12.3 H RBC 3.65 L Hgb 10.9 L Hct 35.8 L MCV 98.1 H MCH 29.9 MCHC 30.4 L RDW 15.2 Plt Count 113 L MPV 11.2 Immature Gran % (Auto) 1.3 H Neut % (Auto) 77.1 H Lymph % (Auto) 14.8 L [place] % (Auto) 6.4 Eos % (Auto) 0.2 Baso % (Auto) 0.2 Lymph # (Auto) 1.8 [place] # (Auto) 0.8 Eos # (Auto) 0.0 Baso # (Auto) 0.0 Abs Immat Gran (auto) 0.16 H Absolute Neuts (auto) 9.5 H Absolute Nucleated RBC 0.000 Nucleated RBC % (auto) 0.0 VBG pH 7.45 H VBG pCO2 65 VBG pO2 48 VBG HCO3 45 VBG O2 Saturation 79.0 VBG Base Excess 18.9 Sodium 155 H Potassium 3.4 Chloride 111 H Carbon Dioxide 36 H Anion Gap 11 L BUN 60 H Creatinine 1.05 Estim Creat Clear Calc 77.0 Estimated GFR > 60 Random Glucose 138 H Calcium 8.3 L Phosphorus 2.6 L Magnesium 3.0 H Albumin 3.4 L Microbiology Microbiology Results: Microbiology 07/20/20 22:10 Urine [place] Urine Culture - Final No growth. 07/16/20 20:37 Blood - Venous Blood Culture - Final No growth after 5 days. 07/16/20 20:37 Blood - Venous Blood Culture - Final No growth after 5 days. 07/14/20 06:55 Blood - Venous Blood Culture - Final No growth after 5 days. 07/14/20 07:02 Blood - Venous Blood Culture - Final No growth after 5 days. 07/17/20 04:30 Urine clean catch - Clean Catch Midstream Urine Culture - Final No growth. 07/10/20 22:43 Blood - Venous Blood Culture - Final No growth after 5 days. 07/10/20 22:39 Blood - Venous Blood Culture - Final No growth after 5 days. 07/11/20 Unknown Urine clean catch - Clean Catch Midstream Urine Culture - Final Progress Note: A&P Assessment and plan (1) Aspiration pneumonitis: Status: Acute Assessment and Plan: Assessment: 75-year-old gentleman with underlying history of hypertension and BPH admitted with weakness secondary to COVID-19 with hospital course complicated by progressive hypoxemia requiring intubation and ventilatory support, extubated 05/23/2021. 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 Cardiac: No acute issues. Pulmonary: Acute hypoxic respiratory failure secondary to COVID-19 related ARDS. Extubated 05/23/2021to high-flow nasal cannula. Continue to titrate off supplemental oxygen as tolerated. Now with small recurrent aspiration secondary to poor cough requiring chest physiotherapy and nasotracheal suctioning. FiO2 titrated down to 50% venturi mask. Renal: Acute renal failure secondary to COVID-19, improving. Non oliguric. Continue to monitor renal indices and urine output. Endo: No acute issues. GI: Failed bedside swallow evaluation by speech therapy. Nasogastric tube placed. ID: COVID-19, dexamethasone for 10 days. Aspiration pneumonitis versus pneumonia, started on empiric Unasyn, to finish 7 days. Heme/Onc: No acute issues. Psych: No acute issues. Miscellaneous: No acute issues. Prophylaxis: Lovenox, does not require GI prophylaxis Diet: Tube feeds Critical care time spent: 60 minutes (2) Hypernatremia: Status: Acute (3) Respiratory failure with hypoxia and hypercapnia: Status: Acute (4) MAURO (acute kidney injury): Status: Acute (5) COVID-19: Status: Acute (6) Weakness: Status: Acute Time Spent With Patient Total time spent with greater than 50% in coordination of care (as documented) at patient's floor/unit and/or counseling patient:: 0
[2020-07-26] MEDS: Enoxaparin Sodium 40 MG/0.4 ML SYRINGE SUBCUT (21:32)
[2020-07-27] VITALS (16 sets, daily range): BP systolic 117–138; BP diastolic 58–76; PULSE 56–88; RESP 14–22; TEMP 36.1–36.7; O2SAT 89–99
[2020-07-27] MEDS: Albuterol/Iprat 2.5/0.5MG 3 ML AMPUL.NEB 1.5 ML INHALE (02:00)
--- NOTE | 2020-07-27 02:21 | PC.NURSE ---
care assumed 23:15...alert..oriented x3 but vague responses...anxious...55% venti-mask in place at hs...sao2 91-925 initially....lungs scattered rhonchi...non-productive cough...kaofeed tube feeds 30 cc/hr...increased work of breathing and patient c/o increased feeling of sob...sao2 decreased to 84-85%..congested non-productive cough...rt present...suctioned x2 for large amount thick yellow-brown sputum...transitioned by rt to hi-jeffrey cannula 80% and 50 l/m with improved sao2 to 98-99% and decreased work of breathing...previously had held tube feeds d/t ?silently aspirating...hospitalist updated...to hold tube feeds overnight---updraft x1 given by rt..currently restful...rt weaned hi-fl cannula to fio2 50% and 40 l/m...sao2 96%
[2020-07-27] MEDS: Ampicillin Sodium/Sulbactam Na 3 GM in 0.9 % Sodium Chloride 100 ML IV ×4 (03:55→20:39)
[2020-07-27 05:19] LABS: MANUAL DIFF FLAG NO
[2020-07-27 05:21] LABS: Base Excess VBG 14.5 mmol/L; HCO3 VBG 42 mmol/L; PCO2 VBG 70 mmHg; PO2 VBG 132 mmHg; pH VBG 7.38 (7.32-7.43)
[2020-07-27 05:26] LABS: Basophils Percent Auto 0.1 % (0-2); Eosinophils Percent Auto 0.1 % (0-4); Hemoglobin 11.2 g/dl (14.0-18.0); Imm Gran Abs Auto 0.09 X10*3/uL (0.00-0.03); Lymphocytes Absolute Auto 1.4 X10*3/uL (1.2-4.9); Lymphocytes Percent Auto 16.6 % (20-40); Mean Corpuscular HGB Conc 30.3 g/dl (31.0-36.0); Mean Corpuscular Hemoglobin 29.8 pg (27.0-33.0); Mean Corpuscular Volume 98.4 fL (80-98); Monocytes Absolute Auto 0.7 X10*3/uL (0.1-1.2); Monocytes Percent Auto 8.2 % (2-11); Neutrophils Absolute Auto 6.4 X10*3/uL (2.0-8.3); Platelet Count 108 X10*3/uL (160-400); Red Blood Count 3.76 X10*6/uL (4.60-5.80); Red Cell Distribution Width 14.9 % (11.0-16.0); White Blood Count 8.6 X10*3/uL (4.8-10.8)
[2020-07-27 05:52] LABS: Albumin Level 3.4 g/dL (3.5-5.0); Anion Gap 13 (12-20); Blood Urea Nitrogen 60 mg/dL (9-16); Calcium 8.5 mg/dL (8.4-10.2); Carbon Dioxide 35 mmol/L (22-29); Chloride 114 mmol/L (96-108); Creatinine Clr Calc Pharmacy 142.3; Estimated Glomerular Filt Rate > 60; Glucose Random 99 mg/dL (60-115); Magnesium 2.9 mg/dL (1.6-2.6); Phosphorus 4.5 mg/dL (2.7-4.5); Potassium 3.7 mmol/L (3.3-5.1); Sodium 158 mmol/L (135-145)
[2020-07-27] MEDS: dexAMETHasone sod phosphate 4 MG/ML VIAL 6 MG IVPUSH (07:12)
[2020-07-27] MEDS: 0.9 % Sodium Chloride Flush 3 ML SYRINGE IVFLUSH ×3 (07:12→20:40)
[2020-07-27] MEDS: Dextrose 5 % 1,000 ML 100 ML IVCONT ×2 (08:03→18:05)
--- NOTE | 2020-07-27 14:43 | HO.PM.IMPN ---
Subjective Subjective Date of Service: 08/04/20 Interval History: Patient seen and examined at bedside Patient reported Weakness patient likely aspirated last night patient currently on high-flow Neurologic Neurologic: Reports system reviewed and no additional complaints, except as documented and Reports confusion Psychiatric Psychiatric: Reports confusion Physical Exam Vital Signs: Vital Signs: Last Vital Signs Temp 97.6 F 07/27/20 11:57 Pulse 57 07/27/20 11:57 Resp 17 07/27/20 11:57 BP 138/76 07/27/20 11:57 Pulse Ox 95 07/27/20 11:57 Body Mass Index 85.1 Const: General: confusion, ill appearing and tired appearing Nutritional Appearance: obese Orientation/consciousness: patient oriented x3 and confusion Eyes: General: appearance normal, both eyes and all related structures Resp: Effort & Inspection: normal respiratory effort and able to speak in complete sentences Auscultation: rales Cardio: Rate: regular rate Rhythm: regular rhythm GI: Palpation (GI): Soft to palpation Auscultation: normal bowel sounds Skin: General skin exam: no rashes or lesions noted Neuro: General: patient oriented x3 and confusion Cognition (Neuro): normal cognition Extrem: General: Yes normal to inspection and Yes no pedal edema Objective Data Current Medications Generic Name Dose Route Start Last Admin Trade Name Freq PRN Reason Stop Dose Admin Acetaminophen 650 mg 07/11/20 05:29 07/16/20 19:37 Acetaminophen 325 Mg Tablet PO 650 mg Q6H PRN Administration Pain, Mild (Pain Scale 1-3) Acetaminophen 325 mg 07/24/20 09:45 Acetaminophen 325 Mg Supp.Rect UT Q6H PRN Fever Dexamethasone Sodium Phosphate 6 mg 07/21/20 09:00 07/27/20 07:12 Dexamethasone Sod Phosphate 4 Mg/Ml Vial IVPUSH 6 mg DAILY KARIN Administration Enoxaparin Sodium 40 mg 07/22/20 22:00 07/26/20 21:32 Enoxaparin Sodium 40 Mg/0.4 Ml Syringe SUBCUT 40 mg Q24H KARIN Administration Ampicillin Sodium/Sulbactam 100 mls @ 200 mls/hr 07/24/20 10:00 07/27/20 10:23 Sodium 3 gm/ Sodium Chloride IV Infused Q6H KARIN Infusion Dextrose 1,000 mls @ 100 mls/hr 07/27/20 08:00 07/27/20 08:03 D5w IVCONT 100 mls/hr .Q10H KARIN Administration Sodium Chloride 3 ml 07/11/20 08:00 07/27/20 07:12 0.9 % Sodium Chloride Flush 3 Ml Syringe IVFLUSH 3 ml QSHIFT KARIN Administration Labs CBC & Chem 7: 08/02/20 05:39 08/02/20 05:39 Microbiology Microbiology Results: Microbiology 07/20/20 22:10 Urine [place] Urine Culture - Final No growth. 07/16/20 20:37 Blood - Venous Blood Culture - Final No growth after 5 days. 07/16/20 20:37 Blood - Venous Blood Culture - Final No growth after 5 days. 07/14/20 06:55 Blood - Venous Blood Culture - Final No growth after 5 days. 07/14/20 07:02 Blood - Venous Blood Culture - Final No growth after 5 days. 07/17/20 04:30 Urine clean catch - Clean Catch Midstream Urine Culture - Final No growth. 07/10/20 22:43 Blood - Venous Blood Culture - Final No growth after 5 days. 07/10/20 22:39 Blood - Venous Blood Culture - Final No growth after 5 days. 07/11/20 Unknown Urine clean catch - Clean Catch Midstream Urine Culture - Final Assessment and Plan (1) Pneumonia due to COVID-19 virus: Status: Acute (2) Weakness: Status: Acute (3) MAURO (acute kidney injury): Status: Acute (4) COVID-19: Status: Acute Assessment and Plan: 75-year-old male who presents to the hospital for acute hypoxic respiratory failure secondary to COVID pneumonia patient was initially placed on high-flow non-rebreather, patient became more hypoxic and was intubated and transferred to ICU, patient was extubated currently on high-flow, rec patient is requiring aggressive chest physiotherapy COVID-19 pneumonia Acute hypoxic respiratory failure currently on high-flow CT shows bilateral patchy ground-glass opacities received dexamethasone Id consulted recommended no remdesivir as out of window. continue supportive management patient likely aspirated last night aspiration pneumonitis continue IV Zosyn continue aggressive chest physiotherapy continue oxygen supplementation difficulty swallowing failed swallow evaluation on tube feeding will hold tube feed today given aspiration, will restart tomorrow if more stable hypernatremia will start on IV D5 monitor sodium level Pressure ulcers Air loss bed ordered Frequent repositioning Wound care consulted Continue wound care DVT prophylaxis: Lovenox
--- NOTE | 2020-07-27 15:19 | MHC.CM.PN ---
Pt remains in ICU on high flow with COVID. Broad referrals have been made: updates remitted for consideration. So far, the [facility] facilities are following. Family aware of STR needs - CM to follow for acceptance once pt is off of high flow O2.
--- NOTE | 2020-07-27 15:25 | PC.NURSE ---
7A-3P: AFEBRILE. VSS. HIGH FLOW 60%/40L. RHOCHI IN UPPERS/DIM IN BASES. WET, NONPRODUCTIVE COUGH. KEOFEEDS REMAIN OFF PER MD. TRIMBLE OUTPUT 525 ML, LARGE BM X 1. PINK FOAM TO BUTTOCK CHANGED, BARRIER CREAM, PREVALON MATTRESS AND PILLOWS UTILIZED, BATHED AND FREQUENT ORAL CARE, LIP MOISTURIZER APPLIED. TLC DRESSING CHANGED. UPDATED FAMILY ON STATUS AND TRANSFER TO ISO UNIT. REPORT TO ISO UNIT GIVEN.
[2020-07-27] MEDS: Enoxaparin Sodium 40 MG/0.4 ML SYRINGE SUBCUT (20:39)
[2020-07-28] VITALS (12 sets, daily range): BP systolic 114–151; BP diastolic 59–77; PULSE 53–90; RESP 16–24; TEMP 36.2–37.5; O2SAT 20–94
[2020-07-28] MEDS: Ampicillin Sodium/Sulbactam Na 3 GM in 0.9 % Sodium Chloride 100 ML IV ×4 (03:00→23:10)
[2020-07-28] MEDS: Dextrose 5 % 1,000 ML 80 ML IVCONT ×2 (05:37→19:33)
[2020-07-28 07:48] LABS: Anion Gap 10 (12-20); Blood Urea Nitrogen 43 mg/dL (9-16); Calcium 6.6 mg/dL (8.4-10.2); Carbon Dioxide 27 mmol/L (22-29); Chloride 119 mmol/L (96-108); Creatinine Clr Calc Pharmacy 182.2; Estimated Glomerular Filt Rate > 60; Glucose Random 103 mg/dL (60-115); Potassium 3.2 mmol/L (3.3-5.1); Sodium 153 mmol/L (135-145)
[2020-07-28] MEDS: 0.9 % Sodium Chloride Flush 3 ML SYRINGE IVFLUSH ×3 (09:06→23:19)
[2020-07-28] MEDS: dexAMETHasone sod phosphate 4 MG/ML VIAL 6 MG IVPUSH (09:09)
[2020-07-28] MEDS: Potassium Chloride/H20 10 MEQ/100 ML PIGGYBACK 100 MEQ IV ×2 (11:33→12:40)
--- NOTE | 2020-07-28 13:10 | PC.NURSE ---
EMILY NOT WORKING, UNABLE TO FLUSH. MULTIPLE ATTEMPTS BY 2 DIFFERENT RNS TO UNCLOG - UNSUCCESSFUL. NOTIFIED. AWAITING RESPONSE.
--- NOTE | 2020-07-28 16:22 | HO.PM.IMPN ---
Subjective Subjective Date of Service: 07/29/20 Interval History: Patient resting comfortably easily arousable offers no acute complaints, pleasantly confused unaware of place or time, patient tube feed has been clogged therefore maintained on IV fluid. Unable to obtain detailed review of systems due to lethargy and confusion. Physical Exam Vital Signs: Vital Signs: Last Vital Signs Temp 97.6 F 07/28/20 15:30 Pulse 61 07/28/20 15:30 Resp 16 07/28/20 15:30 BP 116/65 07/28/20 15:30 Pulse Ox 92 07/28/20 15:30 Body Mass Index 85.1 General resting comfortably no acute distress, ill-appearing, Dried blood in both nostrils Neck supple no JVD. CVS regular rate rhythm, Respiratory lungs clear to auscultation, no respiratory distress, no wheeze, no rhonchi. Gastrointestinal abdomen soft, nontender, bowel sounds audible, no guarding , no rigidity. Extremities no clubbing cyanosis or edema. Neuro moving all 4 extremity, speech clear. Skin no rash Objective Data Current Medications Generic Name Dose Route Start Last Admin Trade Name Freq PRN Reason Stop Dose Admin Acetaminophen 650 mg 07/11/20 05:29 07/16/20 19:37 Acetaminophen 325 Mg Tablet PO 650 mg Q6H PRN Administration Pain, Mild (Pain Scale 1-3) Acetaminophen 325 mg 07/24/20 09:45 Acetaminophen 325 Mg Supp.Rect RI Q6H PRN Fever Dexamethasone Sodium Phosphate 6 mg 07/21/20 09:00 07/28/20 09:09 Dexamethasone Sod Phosphate 4 Mg/Ml Vial IVPUSH 6 mg DAILY KARIN Administration Enoxaparin Sodium 40 mg 07/22/20 22:00 07/27/20 20:39 Enoxaparin Sodium 40 Mg/0.4 Ml Syringe SUBCUT 40 mg Q24H KARIN Administration Ampicillin Sodium/Sulbactam 100 mls @ 200 mls/hr 07/24/20 10:00 07/28/20 16:16 Sodium 3 gm/ Sodium Chloride IV 200 mls/hr Q6H KARIN Administration Dextrose 1,000 mls @ 80 mls/hr 07/27/20 08:00 07/28/20 05:37 D5w IVCONT 80 mls/hr .[id number] KARIN Administration Sodium Chloride 3 ml 07/11/20 08:00 07/28/20 16:06 0.9 % Sodium Chloride Flush 3 Ml Syringe IVFLUSH 3 ml QSHIFT KARIN Administration Labs CBC & Chem 7: 07/27/20 05:14 07/29/20 06:00 Microbiology Microbiology Results: Microbiology 07/20/20 22:10 Urine [place] Urine Culture - Final No growth. 07/16/20 20:37 Blood - Venous Blood Culture - Final No growth after 5 days. 07/16/20 20:37 Blood - Venous Blood Culture - Final No growth after 5 days. 07/14/20 06:55 Blood - Venous Blood Culture - Final No growth after 5 days. 07/14/20 07:02 Blood - Venous Blood Culture - Final No growth after 5 days. 07/17/20 04:30 Urine clean catch - Clean Catch Midstream Urine Culture - Final No growth. 07/10/20 22:43 Blood - Venous Blood Culture - Final No growth after 5 days. 07/10/20 22:39 Blood - Venous Blood Culture - Final No growth after 5 days. 07/11/20 Unknown Urine clean catch - Clean Catch Midstream Urine Culture - Final Assessment and Plan (1) Aspiration pneumonitis: Status: Acute (2) Hypernatremia: Status: Acute (3) ARDS (adult respiratory distress syndrome): Status: Acute (4) Respiratory failure with hypoxia and hypercapnia: Status: Acute (5) MAURO (acute kidney injury): Status: Acute (6) Pneumonia due to COVID-19 virus: Status: Acute Assessment and Plan: 75-year-old male who presents to the hospital for acute hypoxic respiratory failure secondary to COVID pneumonia patient was initially placed on high-flow non-rebreather, patient became more hypoxic and was intubated and transferred to ICU, patient was extubated 07/23/2020 currently on high-flow. COVID-19 pneumonia with Acute hypoxic respiratory failure currently on high-flow oxygen, will gradually wean as tolerated CT shows bilateral patchy ground-glass opacities, Continue IV dexamethasone day 8, continue IV Zosyn day 5 Id consulted recommended no remdesivir as out of window,continue supportive management Aspiration pneumonia continue IV Zosyn day 5, aggressive chest physiotherapy,oxygen supplementation Dysphagia patient failed speech therapy evaluation therefore nasogastric tube was placed currently not functioning Will give retrial of speech therapy tomorrow morning if patient continued to fail swallow eval, will place a new NG tube Hypernatremia Sodium remain elevated therefore will continue IV D5W Hypokalemia will replace and follow 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
[2020-07-28] MEDS: Enoxaparin Sodium 40 MG/0.4 ML SYRINGE SUBCUT (23:10)
[2020-07-29] VITALS (11 sets, daily range): BP systolic 119–137; BP diastolic 61–73; PULSE 56–80; RESP 15–20; TEMP 36.4–37.2; O2SAT 91–100
[2020-07-29] MEDS: Ampicillin Sodium/Sulbactam Na 3 GM in 0.9 % Sodium Chloride 100 ML IV ×4 (03:31→21:48)
[2020-07-29 06:44] LABS: Anion Gap 7 (12-20); Blood Urea Nitrogen 44 mg/dL (9-16); Calcium 7.7 mg/dL (8.4-10.2); Carbon Dioxide 36 mmol/L (22-29); Chloride 111 mmol/L (96-108); Estimated Glomerular Filt Rate > 60; Glucose Random 113 mg/dL (60-115); Potassium 3.6 mmol/L (3.3-5.1); Sodium 150 mmol/L (135-145)
[2020-07-29] MEDS: Dextrose 5 % 1,000 ML 80 ML IVCONT ×2 (08:09→21:49)
[2020-07-29] MEDS: dexAMETHasone sod phosphate 4 MG/ML VIAL 6 MG IVPUSH (08:13)
[2020-07-29] MEDS: 0.9 % Sodium Chloride Flush 3 ML SYRINGE IVFLUSH ×2 (08:13→17:28)
--- NOTE | 2020-07-29 13:34 | HO.PM.IMPN ---
Subjective Subjective Date of Service: 07/30/20 Interval History: Patient awake alert answering questions appropriately, feeling hot and requesting for a cold washcloth, no other acute issues overnight oxygenation remains stable on high-flow. ROS General no headache, no dizziness, no fever chills. CVS no chest pain, no palpitation. Respiratory no shortness of breath Gastrointestinal no nausea, no vomiting, no abdominal pain Physical Exam Vital Signs: Vital Signs: Last Vital Signs Temp 99.0 F 07/29/20 11:49 Pulse 62 07/29/20 11:49 Resp 20 07/29/20 11:49 BP 120/67 07/29/20 11:49 Pulse Ox 94 07/29/20 11:49 Body Mass Index 85.1 General resting comfortably no acute distress, Dried blood in both nostrils no fresh bleeding, feeding tube in place Neck supple no JVD. CVS regular rate rhythm, Respiratory lungs clear to auscultation, no respiratory distress, no wheeze, no rhonchi. Gastrointestinal abdomen soft, nontender, bowel sounds audible, no guarding , no rigidity. Extremities no cyanosis or edema. Neuro nonfocal, speech clear. Skin no rash Objective Data Current Medications Generic Name Dose Route Start Last Admin Trade Name Freq PRN Reason Stop Dose Admin Acetaminophen 650 mg 07/11/20 05:29 07/16/20 19:37 Acetaminophen 325 Mg Tablet PO 650 mg Q6H PRN Administration Pain, Mild (Pain Scale 1-3) Acetaminophen 325 mg 07/24/20 09:45 Acetaminophen 325 Mg Supp.Rect NH Q6H PRN Fever Dexamethasone Sodium Phosphate 6 mg 07/21/20 09:00 07/29/20 08:13 Dexamethasone Sod Phosphate 4 Mg/Ml Vial IVPUSH 6 mg DAILY KARIN Administration Enoxaparin Sodium 40 mg 07/22/20 22:00 07/28/20 23:10 Enoxaparin Sodium 40 Mg/0.4 Ml Syringe SUBCUT 40 mg Q24H KARIN Administration Ampicillin Sodium/Sulbactam 100 mls @ 200 mls/hr 07/24/20 10:00 07/29/20 12:26 Sodium 3 gm/ Sodium Chloride IV Infused Q6H KARIN Infusion Dextrose 1,000 mls @ 80 mls/hr 07/27/20 08:00 07/29/20 08:09 D5w IVCONT 80 mls/hr .[id number] KARIN Administration Sodium Chloride 3 ml 07/11/20 08:00 07/29/20 08:13 0.9 % Sodium Chloride Flush 3 Ml Syringe IVFLUSH 3 ml QSHIFT KARIN Administration Labs CBC & Chem 7: 07/27/20 05:14 07/30/20 06:05 Microbiology Microbiology Results: Microbiology 07/20/20 22:10 Urine [place] Urine Culture - Final No growth. 07/16/20 20:37 Blood - Venous Blood Culture - Final No growth after 5 days. 07/16/20 20:37 Blood - Venous Blood Culture - Final No growth after 5 days. 07/14/20 06:55 Blood - Venous Blood Culture - Final No growth after 5 days. 07/14/20 07:02 Blood - Venous Blood Culture - Final No growth after 5 days. 07/17/20 04:30 Urine clean catch - Clean Catch Midstream Urine Culture - Final No growth. 07/10/20 22:43 Blood - Venous Blood Culture - Final No growth after 5 days. 07/10/20 22:39 Blood - Venous Blood Culture - Final No growth after 5 days. 07/11/20 Unknown Urine clean catch - Clean Catch Midstream Urine Culture - Final Assessment and Plan (1) Aspiration pneumonitis: Status: Acute (2) Hypernatremia: Status: Acute (3) Pneumonia due to COVID-19 virus: Status: Acute (4) Weakness: Status: Acute Assessment and Plan: 75-year-old male who presents to the hospital for acute hypoxic respiratory failure secondary to COVID pneumonia patient was initially placed on high-flow non-rebreather, patient became more hypoxic and was intubated and transferred to ICU, patient was extubated 07/23/2020 currently on high-flow. COVID-19 pneumonia with Acute hypoxic respiratory failure currently on high-flow oxygen, finger oximetry 93 continue current oxygen and gradually wean as tolerated CT shows bilateral patchy ground-glass opacities, Continue IV dexamethasone day 9, continue IV Zosyn day 6 Id consulted recommended no remdesivir as out of window,continue supportive management Aspiration pneumonia continue IV Zosyn day 6, aggressive chest physiotherapy,oxygen supplementation,oob to chair Dysphagia patient failed speech therapy evaluation therefore nasogastric tube was placed currently ng tube not functioning, patient is re-evaluated by speech today await their recommendation Hypernatremia Sodium remain elevated but gradually trending down therefore will continue IV D5W Hypokalemia resolved with repletion 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
--- NOTE | 2020-07-29 14:02 | MHC.SLORD ---
MILLING GENERAL SUPERINTENDENT discussed with MD. Patient shows overt s/s of aspiration with liquids. He tolerated applesauce in trace amount. Per MD, likely patient would not tolerate another NG tube placement. For that reason he would be without feeding for extended time if not PO. Patient will be fed with 1:1 assistance and strict aspiration precautions. Patient to be on PUREED solids (NDD1) and PUDDING thick liquids. Half teaspoon amount. Close monitoring for s/s of aspiration. Date of : 1945 Age: 75 Date of Registration: 07/11/20 Speech Language Pathology Order Status:
--- NOTE | 2020-07-29 14:18 | MHC.CLN ---
F/U SPECIAL SKILLS OFFICER REC PUREED WITH PUDDING THICK LIQ SEE REC DATED 07/29/20 KAOFEED TUBE NOT FUNCTIONING RECOMMEND STARTING THOMAS AND ENSURE PUDDING TO INCREASE CALORIES AND PROMOTE WOUND HEALING MONITOR PO INTAKE CLOSELY
[2020-07-29] MEDS: Enoxaparin Sodium 40 MG/0.4 ML SYRINGE SUBCUT (21:48)
--- NOTE | 2020-07-29 22:59 | PC.NURSE ---
keofeed tube partially pulled out by the patient by accident.dc'd by this rn.noticed previously mentioned in other nurses note that tube was clogged .patient feels better, was able to eat dinner slowely 25 percent,had fluids PO 240 THICKEND WITH NO PROBLEM.
[2020-07-30] VITALS (7 sets, daily range): BP systolic 109–151; BP diastolic 64–81; PULSE 63–76; RESP 18–22; TEMP 36.4–36.8; O2SAT 95–100
[2020-07-30] MEDS: Ampicillin Sodium/Sulbactam Na 3 GM in 0.9 % Sodium Chloride 100 ML IV ×4 (03:48→21:08)
[2020-07-30] MEDS: Dextrose 5 % 1,000 ML 80 ML IVCONT (04:57)
[2020-07-30 07:58] LABS: Anion Gap 9 (12-20); Blood Urea Nitrogen 39 mg/dL (9-16); Calcium 7.5 mg/dL (8.4-10.2); Carbon Dioxide 33 mmol/L (22-29); Chloride 110 mmol/L (96-108); Creatinine Clr Calc Pharmacy 182.2; Estimated Glomerular Filt Rate > 60; Glucose Random 99 mg/dL (60-115); Potassium 3.6 mmol/L (3.3-5.1); Sodium 148 mmol/L (135-145)
[2020-07-30] MEDS: 0.9 % Sodium Chloride Flush 3 ML SYRINGE IVFLUSH ×2 (08:34→15:44)
[2020-07-30] MEDS: dexAMETHasone sod phosphate 4 MG/ML VIAL 6 MG IVPUSH (08:34)
[2020-07-30] MEDS: Acetaminophen 325 MG TABLET 650 MG PO (12:22)
--- NOTE | 2020-07-30 14:53 | PC.NURSE ---
Patient remains in IMC on supplemental O2 at 6L NC. Vitals stable. Patient refused most of his meals and still coughs after eating. Patient refused to work with PT today. This nurse did passive ROM exercises. Patient joints are very stiff. Will continue to monitor.
--- NOTE | 2020-07-30 15:09 | HO.PM.IMPN ---
Subjective Subjective Date of Service: 07/30/20 Interval History: Patient appears to be more awake alert but complaining of weakness and refused to participate with physical therapy due to buttock pain, denies shortness of breath, no fever chills no acute events overnight. ROS General generalized weakness, no headache, no dizziness, no fever chills. CVS no chest pain, no palpitation. Respiratory no shortness of breath Gastrointestinal no nausea, no vomiting, no abdominal pain Physical Exam Vital Signs: Vital Signs: Last Vital Signs Temp 98.0 F 07/30/20 11:54 Pulse 74 07/30/20 11:54 Resp 20 07/30/20 11:54 BP 128/70 07/30/20 11:54 Pulse Ox 98 07/30/20 11:54 Body Mass Index 85.1 General resting comfortably no acute distress Neck supple no JVD. CVS regular rate rhythm, Respiratory coarse breath sounds, diminished, no respiratory distress, no wheeze, no rhonchi. Gastrointestinal abdomen soft, nontender, bowel sounds audible, no guarding , no rigidity. Extremities no cyanosis or edema. Neuro nonfocal, speech clear. Skin no rash Objective Data Current Medications Generic Name Dose Route Start Last Admin Trade Name Freq PRN Reason Stop Dose Admin Acetaminophen 650 mg 07/11/20 05:29 07/30/20 12:22 Acetaminophen 325 Mg Tablet PO 650 mg Q6H PRN Administration Pain, Mild (Pain Scale 1-3) Acetaminophen 325 mg 07/24/20 09:45 Acetaminophen 325 Mg Supp.Rect [place] Q6H PRN Fever Dexamethasone Sodium Phosphate 6 mg 07/21/20 09:00 07/30/20 08:34 Dexamethasone Sod Phosphate 4 Mg/Ml Vial IVPUSH 6 mg DAILY KARIN Administration Enoxaparin Sodium 40 mg 07/22/20 22:00 07/29/20 21:48 Enoxaparin Sodium 40 Mg/0.4 Ml Syringe SUBCUT 40 mg Q24H KARIN Administration Ampicillin Sodium/Sulbactam 100 mls @ 200 mls/hr 07/24/20 10:00 07/30/20 09:54 Sodium 3 gm/ Sodium Chloride IV Infused Q6H KARIN Infusion Sodium Chloride 3 ml 07/11/20 08:00 07/30/20 08:34 0.9 % Sodium Chloride Flush 3 Ml Syringe IVFLUSH 3 ml QSHIFT KARIN Administration Labs CBC & Chem 7: 07/27/20 05:14 07/30/20 06:05 Microbiology Microbiology Results: Microbiology 07/20/20 22:10 Urine [place] Urine Culture - Final No growth. 07/16/20 20:37 Blood - Venous Blood Culture - Final No growth after 5 days. 07/16/20 20:37 Blood - Venous Blood Culture - Final No growth after 5 days. 07/14/20 06:55 Blood - Venous Blood Culture - Final No growth after 5 days. 07/14/20 07:02 Blood - Venous Blood Culture - Final No growth after 5 days. 07/17/20 04:30 Urine clean catch - Clean Catch Midstream Urine Culture - Final No growth. 07/10/20 22:43 Blood - Venous Blood Culture - Final No growth after 5 days. 07/10/20 22:39 Blood - Venous Blood Culture - Final No growth after 5 days. 07/11/20 Unknown Urine clean catch - Clean Catch Midstream Urine Culture - Final Assessment and Plan (1) Respiratory failure with hypoxia and hypercapnia: Status: Acute (2) Pneumonia due to COVID-19 virus: Status: Acute (3) Hypernatremia: Status: Acute (4) Weakness: Status: Acute (5) Pressure ulcer: Status: Acute (6) Dysphagia: Status: Acute Assessment and Plan: 75-year-old male who presents to the hospital for acute hypoxic respiratory failure secondary to COVID pneumonia patient was initially placed on high-flow non-rebreather, patient became more hypoxic and was intubated and transferred to ICU, patient was extubated 07/23/2020 currently on high-flow. COVID-19 pneumonia with Acute hypoxic respiratory failure Clinically improving with less oxygen requirement currently on 10 L by nasal cannula will continue to wean oxygen Continue IV dexamethasone day 10, continue IV Zosyn day 7, strongly recommended out of bed to chair, ambulation and incentive spirometry Id consulted recommended no remdesivir as out of window,continue supportive management Aspiration pneumonia continue IV Zosyn day 7/, aggressive chest physiotherapy,oxygen supplementation,oob to chair CT shows bilateral patchy ground-glass opacities. Dysphagia patient seen by speech and they recommend strict aspiration precautions patient started on pureed solids and pudding thing liquids, will asks for speech for re-evaluation to upgrade diet since patient more awake alert. Hypernatremia Sodium remain elevated but gradually trending down therefore will continue IV D5W Hypokalemia resolved with repletion Critical care myopathy seen by physical therapy they recommend short-term rehab due to persistent weakness. Pressure ulcers continue air loss mattress, frequent repositioning and wound care DVT prophylaxis continue Lovenox
[2020-07-30] MEDS: Enoxaparin Sodium 40 MG/0.4 ML SYRINGE SUBCUT (21:08)
--- NOTE | 2020-07-30 21:49 | PM.IDPN ---
Subjective Subjective Date of Service: 07/30/20 Interval History: he has no complaints Objective Data Labs CBC & Chem 7: 07/27/20 05:14 07/30/20 06:05 Labs: Laboratory Results - last 24 hr 07/30/20 06:05 Sodium 148 H Potassium 3.6 Chloride 110 H Carbon Dioxide 33 H Anion Gap 9 L BUN 39 H Creatinine 0.75 Estim Creat Clear Calc 182.2 Estimated GFR > 60 Random Glucose 99 Calcium 7.5 L Microbiology Microbiology Results: Microbiology 07/20/20 22:10 Urine [place] Urine Culture - Final No growth. 07/16/20 20:37 Blood - Venous Blood Culture - Final No growth after 5 days. 07/16/20 20:37 Blood - Venous Blood Culture - Final No growth after 5 days. 07/14/20 06:55 Blood - Venous Blood Culture - Final No growth after 5 days. 07/14/20 07:02 Blood - Venous Blood Culture - Final No growth after 5 days. 07/17/20 04:30 Urine clean catch - Clean Catch Midstream Urine Culture - Final No growth. 07/10/20 22:43 Blood - Venous Blood Culture - Final No growth after 5 days. 07/10/20 22:39 Blood - Venous Blood Culture - Final No growth after 5 days. 07/11/20 Unknown Urine clean catch - Clean Catch Midstream Urine Culture - Final Physical Exam Vital Signs: Vital Signs: Last Vital Signs Temp 97.7 F 07/30/20 19:15 Pulse 70 07/30/20 19:15 Resp 22 H 07/30/20 19:15 BP 109/64 07/30/20 19:15 Pulse Ox 96 07/30/20 19:15 Body Mass Index 85.1 Const: General: cooperative Resp: Effort & Inspection: normal respiratory effort Cardio: Rate: regular rate Rhythm: regular rhythm Heart sounds: Normal, physiologic split S2 sound present GI: Palpation (GI): Soft to palpation and nontender Assessment and Plan Assessment and plan (1) Aspiration pneumonitis: Problem details: He had Unasyn for 7 days He has had antibiotics previously as well Status: Acute Assessment and Plan: Stop antibiotics Antibiotic holiday and observe Time Spent With Patient Time: Total time spent is greater than 50% in coordination of care (as documented) at patient's floor/unit and/or counseling patient: Time with patient: 15 - 24 minutes
[2020-07-31] MEDS: 0.9 % Sodium Chloride Flush 3 ML SYRINGE IVFLUSH ×4 (00:24→21:51)
[2020-07-31 04:00] VITALS: BP 118/62; PULSE 72; RESP 18; TEMP 36.6; O2SAT 99
[2020-07-31 07:09] LABS: Anion Gap 10 (12-20); Blood Urea Nitrogen 38 mg/dL (9-16); Calcium 7.8 mg/dL (8.4-10.2); Carbon Dioxide 34 mmol/L (22-29); Chloride 107 mmol/L (96-108); Creatinine Clr Calc Pharmacy 182.2; Estimated Glomerular Filt Rate > 60; Glucose Random 82 mg/dL (60-115); Potassium 3.7 mmol/L (3.3-5.1); Sodium 147 mmol/L (135-145)
[2020-07-31 07:27] VITALS: BP 121/63; PULSE 74; RESP 20; TEMP 36.6; O2SAT 93
[2020-07-31] MEDS: dexAMETHasone sod phosphate 4 MG/ML VIAL 6 MG IVPUSH (09:12)
[2020-07-31 11:07] VITALS: BP 121/63; PULSE 74; O2SAT 93
--- NOTE | 2020-07-31 11:18 | MHC.CLN ---
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
[2020-07-31 12:00] VITALS: BP 121/63; PULSE 71; RESP 20; TEMP 36.4; O2SAT 99
--- NOTE | 2020-07-31 12:14 | MHC.CM.PN ---
DP Male 75 dx s/p covid. An update of clinical info, including the PT eval was sent to referral sources.@ DC STR is anticipated. CM will follow.
[2020-07-31] MEDS: Acetaminophen 325 MG TABLET 650 MG PO (15:06)
[2020-07-31 15:46] VITALS: BP 135/76; PULSE 84; RESP 20; TEMP 36.6; O2SAT 97
--- NOTE | 2020-07-31 18:10 | HO.PM.IMPN ---
Subjective Subjective Date of Service: 07/31/20 Interval History: Patient feels weak, complaining of cough and shortness of breath. No fever no chills feels weak for transfers and ambulation. ROS General generalized weakness, no headache, no dizziness, no fever chills. CVS no chest pain, no palpitation. Respiratory positive cough, shortness of breath Gastrointestinal no nausea, no vomiting, no abdominal pain Physical Exam Vital Signs: Vital Signs: Last Vital Signs Temp 97.8 F 07/31/20 15:46 Pulse 84 07/31/20 15:46 Resp 20 07/31/20 15:46 BP 135/76 07/31/20 15:46 Pulse Ox 97 07/31/20 15:46 Body Mass Index 85.1 General resting comfortably, no acute distress, congested cough with movement Neck supple no JVD. CVS regular rate rhythm, Respiratory coarse breath sounds, diminished, no respiratory distress, no wheeze, no rhonchi. Gastrointestinal abdomen soft, nontender, bowel sounds audible, no guarding , no rigidity. Extremities no cyanosis or edema. Neuro nonfocal, speech clear. Skin no rash Objective Data Current Medications Generic Name Dose Route Start Last Admin Trade Name Freq PRN Reason Stop Dose Admin Acetaminophen 650 mg 07/11/20 05:29 07/31/20 15:06 Acetaminophen 325 Mg Tablet PO 650 mg Q6H PRN Administration Pain, Mild (Pain Scale 1-3) Acetaminophen 325 mg 07/24/20 09:45 Acetaminophen 325 Mg Supp.Rect NV Q6H PRN Fever Dexamethasone Sodium Phosphate 6 mg 07/21/20 09:00 07/31/20 09:12 Dexamethasone Sod Phosphate 4 Mg/Ml Vial IVPUSH 6 mg DAILY KARIN Administration Enoxaparin Sodium 40 mg 07/22/20 22:00 07/30/20 21:08 Enoxaparin Sodium 40 Mg/0.4 Ml Syringe SUBCUT 40 mg Q24H KARIN Administration Sodium Chloride 3 ml 07/11/20 08:00 07/31/20 16:47 0.9 % Sodium Chloride Flush 3 Ml Syringe IVFLUSH 3 ml QSHIFT KARIN Administration Labs CBC & Chem 7: 07/27/20 05:14 07/31/20 05:31 Microbiology Microbiology Results: Microbiology 07/20/20 22:10 Urine [place] Urine Culture - Final No growth. 07/16/20 20:37 Blood - Venous Blood Culture - Final No growth after 5 days. 07/16/20 20:37 Blood - Venous Blood Culture - Final No growth after 5 days. 07/14/20 06:55 Blood - Venous Blood Culture - Final No growth after 5 days. 07/14/20 07:02 Blood - Venous Blood Culture - Final No growth after 5 days. 07/17/20 04:30 Urine clean catch - Clean Catch Midstream Urine Culture - Final No growth. 07/10/20 22:43 Blood - Venous Blood Culture - Final No growth after 5 days. 07/10/20 22:39 Blood - Venous Blood Culture - Final No growth after 5 days. 07/11/20 Unknown Urine clean catch - Clean Catch Midstream Urine Culture - Final Assessment and Plan (1) Dysphagia: Status: Acute (2) Pressure ulcer: Status: Acute (3) Aspiration pneumonitis: Problem details: He had Unasyn for 7 days He has had antibiotics previously as well Status: Acute (4) Hypernatremia: Status: Acute (5) Respiratory failure with hypoxia and hypercapnia: Status: Acute (6) Pneumonia due to COVID-19 virus: Status: Acute Assessment and Plan: 75-year-old male who presents to the hospital for acute hypoxic respiratory failure secondary to COVID pneumonia patient was initially placed on high-flow non-rebreather, patient became more hypoxic and was intubated and transferred to ICU, patient was extubated 07/23/2020 currently on high-flow. COVID-19 pneumonia with Acute hypoxic respiratory failure Clinically improving with less oxygen requirement currently on 5 L by nasal cannula will continue to wean oxygen but remains very weak Will discontinue IV dexamethasone , finished course of Zosyn, recommend out of bed to chair, encouraged to use incentive spirometry, will add guaifenesin Id consulted recommended no remdesivir as out of window,continue supportive management Aspiration pneumonia Finished course of Zosyn for 7 days , aggressive chest physiotherapy,oxygen supplementation,oob to chair Seen by ID she recommend to stop antibiotic and follow clinical course CT shows bilateral patchy ground-glass opacities. 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 Pressure ulcers continue air loss mattress, frequent repositioning and wound care DVT prophylaxis continue Lovenox
[2020-07-31 19:20] VITALS: BP 117/60; PULSE 79; RESP 18; TEMP 36.5; O2SAT 96
[2020-07-31] MEDS: guaiFENesin LA 600 MG TAB.ER.12H 1200 MG PO (21:50)
[2020-07-31] MEDS: Enoxaparin Sodium 40 MG/0.4 ML SYRINGE SUBCUT (21:50)
[2020-08-01] VITALS (8 sets, daily range): BP systolic 104–131; BP diastolic 57–72; PULSE 65–87; RESP 16–20; TEMP 36.1–36.6; O2SAT 91–100
[2020-08-01] MEDS: guaiFENesin LA 600 MG TAB.ER.12H 1200 MG PO ×2 (07:46→20:36)
[2020-08-01] MEDS: 0.9 % Sodium Chloride Flush 3 ML SYRINGE IVFLUSH ×2 (07:46→15:27)
--- NOTE | 2020-08-01 17:49 | P.PNIM_ITS ---
Subjective Subjective Date of Service: 08/01/20 Interval History: Patient offers no acute complaints, has Montanez catheter in place draining clear urine patient at home was on Flomax and oxybutynin due to benign prostate hypertrophy, but required Montanez placement in the ICU under cystoscopy and was found to have normal urethra with posterior false passage and was noted to have trilobar hypertrophy of the prostate. Prior to hospitalization patient had no urinary issues, patient offers no other complaints complaining of congested cough. ROS General generalized weakness, no headache, no dizziness, no fever chills. CVS no chest pain, no palpitation. Respiratory positive cough, shortness of breath Gastrointestinal no nausea, no vomiting, no abdominal pain Physical Exam Vital Signs: Vital Signs: Last Vital Signs Temp 97.3 F 08/01/20 15:52 Pulse 81 08/01/20 15:52 Resp 16 08/01/20 15:52 BP 104/58 L 08/01/20 15:52 Pulse Ox 97 08/01/20 15:52 Body Mass Index 85.1 General resting comfortably, no acute distress, congested cough Neck supple no JVD. CVS regular rate rhythm, Respiratory coarse breath sounds, diminished, no respiratory distress, no wheeze, no rhonchi. Gastrointestinal abdomen soft, nontender, bowel sounds audible, no guarding , no rigidity. Extremities no cyanosis or edema. Neuro nonfocal, speech clear. Skin no rash Objective Data Current Medications Generic Name Dose Route Start Last Admin Trade Name Freq PRN Reason Stop Dose Admin Acetaminophen 650 mg 07/11/20 05:29 07/31/20 15:06 Acetaminophen 325 Mg Tablet PO 650 mg Q6H PRN Administration Pain, Mild (Pain Scale 1-3) Acetaminophen 325 mg 07/24/20 09:45 Acetaminophen 325 Mg Supp.Rect TN Q6H PRN Fever Enoxaparin Sodium 40 mg 07/22/20 22:00 07/31/20 21:50 Enoxaparin Sodium 40 Mg/0.4 Ml Syringe SUBCUT 40 mg Q24H KARIN Administration Guaifenesin 1,200 mg 07/31/20 21:00 08/01/20 07:46 Guaifenesin La 600 Mg Tab.Er.12h PO 1,200 mg BID KARIN Administration Sodium Chloride 3 ml 07/11/20 08:00 08/01/20 15:27 0.9 % Sodium Chloride Flush 3 Ml Syringe IVFLUSH 3 ml QSHIFT KARIN Administration Labs CBC & Chem 7: 07/27/20 05:14 07/31/20 05:31 Microbiology Microbiology Results: Microbiology 07/20/20 22:10 Urine [place] Urine Culture - Final No growth. 07/16/20 20:37 Blood - Venous Blood Culture - Final No growth after 5 days. 07/16/20 20:37 Blood - Venous Blood Culture - Final No growth after 5 days. 07/14/20 06:55 Blood - Venous Blood Culture - Final No growth after 5 days. 07/14/20 07:02 Blood - Venous Blood Culture - Final No growth after 5 days. 07/17/20 04:30 Urine clean catch - Clean Catch Midstream Urine Culture - Final No growth. 07/10/20 22:43 Blood - Venous Blood Culture - Final No growth after 5 days. 07/10/20 22:39 Blood - Venous Blood Culture - Final No growth after 5 days. 07/11/20 Unknown Urine clean catch - Clean Catch Midstream Urine Culture - Final Assessment and Plan (1) Dysphagia: Status: Acute (2) Pressure ulcer: Status: Acute (3) Aspiration pneumonitis: Problem details: He had Unasyn for 7 days He has had antibiotics previously as well Status: Acute (4) Hypernatremia: Status: Acute (5) Respiratory failure with hypoxia and hypercapnia: Status: Acute (6) Pneumonia due to COVID-19 virus: Status: Acute (7) Weakness: Status: Acute (8) BPH w urinary obs/LUTS: Problem details: Patient ability placing Montanez catheter attempted placement of a catheter after injecting the urethra with lidocaine jelly that he had catheter hung up therefore tried a 18 [place] coude which still would not pass in the patient's bladder. Tried placing a Glidewire by itself which would not pass into the patient's bladder. Subsequently the patient underwent cystoscopy at the bedside prepped and draped usual fashion lidocaine jelly per urethra and subsequently underwent cystoscopy patient had normal appearing urethra has posterior false passage and the bulbar urethra has trilobar hypertrophy of the prostate with evidence of previous laser TURP once the kidney at cystoscope was Montanez into the patient's bladder a Glidewire was placed through the cystoscope and subsequently a 16 [place] tip catheter was advanced without any difficulty patient's bladder with drainage of clear urine. Patient's balloon was blown up without any difficulty the catheter was at the hub on the meatus. The patient tolerated seizure well there were no complications. Status: Acute Assessment and Plan: 75-year-old male who presents to the hospital for acute hypoxic respiratory failure secondary to COVID pneumonia patient was initially placed on high-flow non-rebreather, patient became more hypoxic and was intubated and transferred to ICU, patient was extubated 07/23/2020 currently on high-flow. COVID-19 pneumonia with Acute hypoxic respiratory failure Clinically improving with less oxygen requirement currently on 5 L by nasal cannula will continue to wean oxygen status post IV dexamethasone , and iv Zosyn, recommend out of bed to chair, encouraged to use incentive spirometry, continue guaifenesin Id consulted recommended no remdesivir as out of window,continue supportive management Aspiration pneumonia Finished course of Zosyn for 7 days , aggressive chest physiotherapy,oxygen supplementation,oob to chair CT showed bilateral patchy ground-glass opacities. Dysphagia diet upgraded to clear liquids with Ensure t.i.d. continue Ensure t.i.d. 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 Pressure ulcers coccyx and buttock continue air loss mattress, frequent repositioning and wound care DVT prophylaxis continue Lovenox
[2020-08-01] MEDS: Enoxaparin Sodium 40 MG/0.4 ML SYRINGE SUBCUT (21:01)
[2020-08-02] MEDS: 0.9 % Sodium Chloride Flush 3 ML SYRINGE IVFLUSH ×3 (01:42→17:22)
[2020-08-02 03:14] VITALS: BP 128/63; PULSE 76; RESP 18; TEMP 36.6; O2SAT 98
[2020-08-02 06:01] LABS: MANUAL DIFF FLAG NO
[2020-08-02 06:11] LABS: Basophils Percent Auto 0.4 % (0-2); Eosinophils Absolute Auto 0.2 X10*3/uL (0.0-0.4); Eosinophils Percent Auto 2.2 % (0-4); Hematocrit 33.3 % (42-52); Hemoglobin 10.5 g/dl (14.0-18.0); Imm Gran Abs Auto 0.22 X10*3/uL (0.00-0.03); Imm Gran Pct Auto 2.3 % (0.0-0.4); Lymphocytes Absolute Auto 1.4 X10*3/uL (1.2-4.9); Lymphocytes Percent Auto 14.7 % (20-40); Mean Corpuscular HGB Conc 31.5 g/dl (31.0-36.0); Mean Corpuscular Hemoglobin 29.5 pg (27.0-33.0); Mean Corpuscular Volume 93.5 fL (80-98); Mean Platelet Volume 10.6 fL (9.4-12.4); Monocytes Absolute Auto 0.5 X10*3/uL (0.1-1.2); Monocytes Percent Auto 5.1 % (2-11); Neutrophils Absolute Auto 7.4 X10*3/uL (2.0-8.3); Neutrophils Percent Auto 75.3 % (45-73); Platelet Count 132 X10*3/uL (160-400); Red Blood Count 3.56 X10*6/uL (4.60-5.80); Red Cell Distribution Width 14.7 % (11.0-16.0); White Blood Count 9.8 X10*3/uL (4.8-10.8)
[2020-08-02 06:39] LABS: Anion Gap 13 (12-20); Blood Urea Nitrogen 33 mg/dL (9-16); Calcium 7.9 mg/dL (8.4-10.2); Carbon Dioxide 30 mmol/L (22-29); Chloride 104 mmol/L (96-108); Creatinine Clr Calc Pharmacy 177.5; Estimated Glomerular Filt Rate > 60; Glucose Random 108 mg/dL (60-115); Potassium 3.3 mmol/L (3.3-5.1); Sodium 144 mmol/L (135-145)
[2020-08-02] MEDS: guaiFENesin LA 600 MG TAB.ER.12H 1200 MG PO ×2 (07:48→20:59)
[2020-08-02 08:00] VITALS: BP 112/58; PULSE 88; RESP 20; TEMP 37.1; O2SAT 95
[2020-08-02 10:49] VITALS: BP 112/58; PULSE 88; O2SAT 95
[2020-08-02 11:43] VITALS: BP 119/63; PULSE 76; RESP 18; TEMP 36.6; O2SAT 97
[2020-08-02] MEDS: Acetaminophen 325 MG TABLET 650 MG PO (12:48)
--- NOTE | 2020-08-02 13:41 | MHC.CLN ---
F/U PO INTAKE 25-50% DIET RX: GRD/M/S-ACRYLIC FABRICATOR REC DIET UPGRADE TO CHOPPED 2/5 CONTINUE THOMAS AND ENSURE TID TO INCREASE CALORIES AND PROMOTE WOUND HEALING NOTED WOUNDS IMPROVING MONITOR PO INTAKE CLOSELY
[2020-08-02 15:37] VITALS: BP 112/62; PULSE 73; RESP 21; TEMP 37.4; O2SAT 95
--- NOTE | 2020-08-02 16:18 | P.PNIM_ITS ---
Subjective Subjective Date of Service: 08/02/20 Interval History: Patient complaining of pain at lower back due to open sores also asking for sleeping medicine, remains very weak to ambulate has been out of bed to chair. ROS General generalized weakness, no headache, no dizziness, no fever chills, lower back discomfort. CVS no chest pain, no palpitation. Respiratory positive cough, shortness of breath Gastrointestinal no nausea, no vomiting, no abdominal pain Physical Exam Vital Signs: Vital Signs: Last Vital Signs Temp 99.3 F 08/02/20 15:37 Pulse 73 08/02/20 15:37 Resp 21 H 08/02/20 15:37 BP 112/62 08/02/20 15:37 Pulse Ox 95 08/02/20 15:37 Body Mass Index 85.1 General resting comfortably, no acute distress, has difficulty turning in bed due to weakness and bedsores Neck supple no JVD. CVS regular rate rhythm, Respiratory coarse breath sounds, diminished, no respiratory distress, no wheeze, no rhonchi. Gastrointestinal abdomen soft, nontender, bowel sounds audible, no guarding , no rigidity. Extremities no cyanosis or edema. Neuro nonfocal, speech clear. Skin no rash Objective Data Current Medications Generic Name Dose Route Start Last Admin Trade Name Freq PRN Reason Stop Dose Admin Acetaminophen 650 mg 07/11/20 05:29 08/02/20 12:48 Acetaminophen 325 Mg Tablet PO 650 mg Q6H PRN Administration Pain, Mild (Pain Scale 1-3) Acetaminophen 325 mg 07/24/20 09:45 Acetaminophen 325 Mg Supp.Rect MI Q6H PRN Fever Enoxaparin Sodium 40 mg 07/22/20 22:00 08/01/20 21:01 Enoxaparin Sodium 40 Mg/0.4 Ml Syringe SUBCUT 40 mg Q24H KARIN Administration Guaifenesin 1,200 mg 07/31/20 21:00 08/02/20 07:48 Guaifenesin La 600 Mg Tab.Er.12h PO 1,200 mg BID KARIN Administration Oxybutynin Chloride 15 mg 08/02/20 09:00 08/02/20 11:01 Oxybutynin Chloride Er 5 Mg Tab.Er.24 PO 15 mg DAILY KARIN Administration Sodium Chloride 3 ml 07/11/20 08:00 08/02/20 07:45 0.9 % Sodium Chloride Flush 3 Ml Syringe IVFLUSH 3 ml QSHIFT KARIN Administration Tamsulosin HCl 0.4 mg 08/02/20 21:00 Tamsulosin Hcl 0.4 Mg Capsule PO BEDTIME [facility] Labs CBC & Chem 7: 08/02/20 05:39 08/02/20 05:39 Microbiology Microbiology Results: Microbiology 07/20/20 22:10 Urine [place] Urine Culture - Final No growth. 07/16/20 20:37 Blood - Venous Blood Culture - Final No growth after 5 days. 07/16/20 20:37 Blood - Venous Blood Culture - Final No growth after 5 days. 07/14/20 06:55 Blood - Venous Blood Culture - Final No growth after 5 days. 07/14/20 07:02 Blood - Venous Blood Culture - Final No growth after 5 days. 07/17/20 04:30 Urine clean catch - Clean Catch Midstream Urine Culture - Final No growth. 07/10/20 22:43 Blood - Venous Blood Culture - Final No growth after 5 days. 07/10/20 22:39 Blood - Venous Blood Culture - Final No growth after 5 days. 07/11/20 Unknown Urine clean catch - Clean Catch Midstream Urine Culture - Final Assessment and Plan (1) Dysphagia: Status: Acute (2) Pressure ulcer: Status: Acute (3) Aspiration pneumonitis: Problem details: He had Unasyn for 7 days He has had antibiotics previously as well Status: Acute (4) Hypernatremia: Status: Acute (5) Respiratory failure with hypoxia and hypercapnia: Status: Acute (6) MAURO (acute kidney injury): Status: Acute (7) Pneumonia due to COVID-19 virus: Status: Acute (8) Weakness: Status: Acute (9) BPH w urinary obs/LUTS: Problem details: Patient ability placing Montanez catheter attempted placement of a catheter after injecting the urethra with lidocaine jelly that he had catheter hung up therefore tried a 18 [place] coude which still would not pass in the patient's bladder. Tried placing a Glidewire by itself which would not pass into the patient's bladder. Subsequently the patient underwent cystoscopy at the bedside prepped and draped usual fashion lidocaine jelly per urethra and subsequently underwent cystoscopy patient had normal appearing urethra has posterior false passage and the bulbar urethra has trilobar hypertrophy of the prostate with evidence of previous laser TURP once the kidney at cystoscope was Montanez into the patient's bladder a Glidewire was placed through the cystoscope and subsequently a 16 [place] tip catheter was advanced without any difficulty patient's bladder with drainage of clear urine. Patient's balloon was blown up without any difficulty the catheter was at the hub on the meatus. The patient tolerated seizure well there were no complications. Status: Acute Assessment and Plan: 75-year-old male who presents to the hospital for acute hypoxic respiratory failure secondary to COVID pneumonia patient was initially placed on high-flow non-rebreather, patient became more hypoxic and was intubated and transferred to ICU, patient was extubated 07/23/2020 currently on high-flow. COVID-19 pneumonia with Acute hypoxic respiratory failure Clinically improving with less oxygen requirement currently on 4 L by nasal cannula will continue to wean oxygen status post IV dexamethasone , and iv Zosyn, recommend out of bed to chair, encouraged to use incentive spirometry, continue guaifenesin Did not receive remdesivir since was out of window,continue supportive management Aspiration pneumonia Finished course of Zosyn for 7 days , aggressive chest physiotherapy,oxygen supplementation,oob to chair CT showed bilateral patchy ground-glass opacities. Dysphagia diet upgraded to chopped solids, with clear liquids ,Ensure t.i.d. 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 Pressure ulcers coccyx and buttock continue air loss mattress, frequent repositioning and wound care Insomnia will add trazodone for sleep DVT prophylaxis continue Lovenox
[2020-08-02 19:23] VITALS: BP 124/73; PULSE 74; RESP 22; TEMP 36.5; O2SAT 96
[2020-08-02] MEDS: Tamsulosin HCL 0.4 MG CAPSULE PO (20:59)
[2020-08-02] MEDS: traZODone HCL 50 MG TABLET PO (20:59)
[2020-08-02] MEDS: Enoxaparin Sodium 40 MG/0.4 ML SYRINGE SUBCUT (20:59)
[2020-08-03] VITALS: BP 124/65; PULSE 81; RESP 18; TEMP 36.3; O2SAT 97
[2020-08-03] MEDS: 0.9 % Sodium Chloride Flush 3 ML SYRINGE IVFLUSH ×4 (00:06→23:40)
[2020-08-03 04:00] VITALS: BP 126/80; PULSE 79; RESP 20; TEMP 36.4; O2SAT 94
[2020-08-03 08:38] VITALS: BP 110/53; PULSE 75; RESP 20; TEMP 37.1; O2SAT 98
[2020-08-03] MEDS: guaiFENesin LA 600 MG TAB.ER.12H 1200 MG PO ×2 (09:15→20:01)
--- NOTE | 2020-08-03 14:20 | P.PNIM_ITS ---
Subjective Subjective Date of Service: 08/03/20 Interval History: No acute complaints overnight slept well no nausea no vomiting continued to feel weak PT continue to recommend short-term rehab, oxygenation remains stable on 4 L nasal cannula with finger oximetry 98%, using incentive spirometry. Complaining of back pain due to skin breakdown and requesting for pain medication. ROS General generalized weakness, no headache, no dizziness, no fever chills, lower back discomfort. CVS no chest pain, no palpitation. Respiratory positive cough, shortness of breath Gastrointestinal no nausea, no vomiting, no abdominal pain Physical Exam 2 Vital Signs: Vital Signs: Last Vital Signs Temp 98.7 F 08/03/20 08:38 Pulse 75 08/03/20 08:38 Resp 20 08/03/20 08:38 BP 110/53 L 08/03/20 08:38 Pulse Ox 98 08/03/20 08:38 Body Mass Index 85.1 General resting comfortably, no acute distress Multiple dry scabs upper lip Neck supple no JVD. CVS regular rate rhythm, Respiratory coarse breath sounds at base, diminished, no respiratory distress, no wheeze, no rhonchi. Gastrointestinal abdomen soft, nontender, bowel sounds audible, no guarding , no rigidity. Extremities no cyanosis or edema. Neuro nonfocal, speech clear. Skin no rash Objective Data Current Medications Generic Name Dose Route Start Last Admin Trade Name Freq PRN Reason Stop Dose Admin Acetaminophen 650 mg 07/11/20 05:29 08/02/20 12:48 Acetaminophen 325 Mg Tablet PO 650 mg Q6H PRN Administration Pain, Mild (Pain Scale 1-3) Acetaminophen 325 mg 07/24/20 09:45 Acetaminophen 325 Mg Supp.Rect MT Q6H PRN Fever Enoxaparin Sodium 40 mg 07/22/20 22:00 08/02/20 20:59 Enoxaparin Sodium 40 Mg/0.4 Ml Syringe SUBCUT 40 mg Q24H KARIN Administration Guaifenesin 1,200 mg 07/31/20 21:00 08/03/20 09:15 Guaifenesin La 600 Mg Tab.Er.12h PO 1,200 mg BID KARIN Administration Oxybutynin Chloride 15 mg 08/02/20 09:00 08/03/20 09:15 Oxybutynin Chloride Er 5 Mg Tab.Er.24 PO 15 mg DAILY KARIN Administration Sodium Chloride 3 ml 07/11/20 08:00 08/03/20 09:14 0.9 % Sodium Chloride Flush 3 Ml Syringe IVFLUSH 3 ml QSHIFT KARIN Administration Tamsulosin HCl 0.4 mg 08/02/20 21:00 08/02/20 20:59 Tamsulosin Hcl 0.4 Mg Capsule PO 0.4 mg BEDTIME KARIN Administration Trazodone HCl 50 mg 08/02/20 21:00 08/02/20 20:59 Trazodone Hcl 50 Mg Tablet PO 50 mg BEDTIME KARIN Administration Labs CBC & Chem 7: 08/02/20 05:39 08/02/20 05:39 Microbiology Microbiology Results: Microbiology 07/20/20 22:10 Urine [place] Urine Culture - Final No growth. 07/16/20 20:37 Blood - Venous Blood Culture - Final No growth after 5 days. 07/16/20 20:37 Blood - Venous Blood Culture - Final No growth after 5 days. 07/14/20 06:55 Blood - Venous Blood Culture - Final No growth after 5 days. 07/14/20 07:02 Blood - Venous Blood Culture - Final No growth after 5 days. 07/17/20 04:30 Urine clean catch - Clean Catch Midstream Urine Culture - Final No growth. 07/10/20 22:43 Blood - Venous Blood Culture - Final No growth after 5 days. 07/10/20 22:39 Blood - Venous Blood Culture - Final No growth after 5 days. 07/11/20 Unknown Urine clean catch - Clean Catch Midstream Urine Culture - Final Assessment and Plan (1) Dysphagia: Status: Acute (2) Pressure ulcer: Status: Acute (3) Aspiration pneumonitis: Problem details: He had Unasyn for 7 days He has had antibiotics previously as well Status: Acute (4) Hypernatremia: Status: Acute (5) MAURO (acute kidney injury): Status: Acute (6) Pneumonia due to COVID-19 virus: Status: Acute (7) Rhabdomyolysis: Status: Acute (8) Weakness: Status: Acute (9) BPH w urinary obs/LUTS: Status: Acute Assessment and Plan: 75-year-old male who presents to the hospital for acute hypoxic respiratory failure secondary to COVID pneumonia patient was initially placed on high-flow non-rebreather, patient became more hypoxic and was intubated and transferred to ICU, patient was extubated 07/23/2020 currently on high-flow. COVID-19 pneumonia with Acute hypoxic respiratory failure Clinically improving with less oxygen requirement decrease oxygen to 3 L by nasal cannula will continue to wean oxygen status post IV dexamethasone , and iv Zosyn, recommend out of bed to chair, encouraged to use incentive spirometry, continue guaifenesin Did not receive remdesivir since was out of window,continue supportive management Aspiration pneumonia Finished course of Zosyn for 7 days , tolerating diet no shortness of breath, oxygen supplementation,oob to chair CT showed bilateral patchy ground-glass opacities. Dysphagia diet upgraded to chopped solids, with clear liquids ,Ensure t.i.d. 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 Pressure ulcers coccyx and buttock continue air loss mattress, frequent repositioning and wound care, will give oxycodone low-dose for pain control. Insomnia continue trazodone for sleep DVT prophylaxis continue Lovenox
[2020-08-03 15:34] VITALS: BP 116/56; PULSE 79; RESP 18; TEMP 36.1; O2SAT 93
[2020-08-03] MEDS: oxyCODONE HCl Immed Release 5 MG TABLET PO (18:03)
[2020-08-03 20:00] VITALS: BP 116/57; PULSE 86; RESP 18; TEMP 36.4; O2SAT 94
[2020-08-03] MEDS: Tamsulosin HCL 0.4 MG CAPSULE PO (20:00)
[2020-08-03] MEDS: traZODone HCL 50 MG TABLET PO (20:01)
[2020-08-03] MEDS: Enoxaparin Sodium 40 MG/0.4 ML SYRINGE SUBCUT (20:01)
[2020-08-04] VITALS: BP 121/62; PULSE 104; RESP 20; TEMP 36.9; O2SAT 95
[2020-08-04 03:30] VITALS: BP 109/53; PULSE 72; RESP 20; TEMP 37.1; O2SAT 92
[2020-08-04 08:00] VITALS: BP 119/56; PULSE 78; RESP 18; TEMP 36.8; O2SAT 96
[2020-08-04 09:00] VITALS: BMI 39.5
[2020-08-04] MEDS: 0.9 % Sodium Chloride Flush 3 ML SYRINGE IVFLUSH ×2 (09:52→17:03)
[2020-08-04] MEDS: oxyCODONE HCl Immed Release 5 MG TABLET PO (09:52)
[2020-08-04] MEDS: guaiFENesin LA 600 MG TAB.ER.12H 1200 MG PO ×2 (09:53→22:02)
--- NOTE | 2020-08-04 11:34 | P.PNIM_ITS ---
Subjective Subjective Date of Service: 08/04/20 Interval History: Patient complaining of lower back pain, persistent weakness, no other acute issues overnight. ROS General generalized weakness, no headache, no dizziness, no fever chills, lower back discomfort. CVS no chest pain, no palpitation. Respiratory positive cough, shortness of breath Gastrointestinal no nausea, no vomiting, no abdominal pain Physical Exam Vital Signs: Vital Signs: Last Vital Signs Temp 98.8 F 08/04/20 03:30 Pulse 72 08/04/20 03:30 Resp 20 08/04/20 03:30 BP 109/53 L 08/04/20 03:30 Pulse Ox 92 08/04/20 03:30 Body Mass Index 85.1 General resting comfortably, no acute distress Multiple dry scabs, upper lip Neck supple no JVD. CVS regular rate rhythm, Respiratory coarse breath sounds at base, diminished, no respiratory distress, n o wheeze, no rhonchi. Gastrointestinal abdomen soft, nontender, bowel sounds audible, no guarding , no rigidity. Extremities no cyanosis or edema. Neuro nonfocal, speech clear. Skin no rash Objective Data Current Medications Generic Name Dose Route Start Last Admin Trade Name Freq PRN Reason Stop Dose Admin Acetaminophen 650 mg 07/11/20 05:29 08/02/20 12:48 Acetaminophen 325 Mg Tablet PO 650 mg Q6H PRN Administration Pain, Mild (Pain Scale 1-3) Acetaminophen 325 mg 07/24/20 09:45 Acetaminophen 325 Mg Supp.Rect LA Q6H PRN Fever Enoxaparin Sodium 40 mg 07/22/20 22:00 08/03/20 20:01 Enoxaparin Sodium 40 Mg/0.4 Ml Syringe SUBCUT 40 mg Q24H KARIN Administration Guaifenesin 1,200 mg 07/31/20 21:00 08/04/20 09:53 Guaifenesin La 600 Mg Tab.Er.12h PO 1,200 mg BID KARIN Administration Oxybutynin Chloride 15 mg 08/02/20 09:00 08/04/20 09:53 Oxybutynin Chloride Er 5 Mg Tab.Er.24 PO 15 mg DAILY KARIN Administration Oxycodone HCl 5 mg 08/03/20 14:29 08/04/20 09:52 Oxycodone Hcl Immed Release 5 Mg Tablet PO 5 mg Q6H PRN Administration Pain, Severe (Pain Scale 7-10) Sodium Chloride 3 ml 07/11/20 08:00 08/04/20 09:52 0.9 % Sodium Chloride Flush 3 Ml Syringe IVFLUSH 3 ml QSHIFT KARIN Administration Tamsulosin HCl 0.4 mg 08/02/20 21:00 08/03/20 20:00 Tamsulosin Hcl 0.4 Mg Capsule PO 0.4 mg BEDTIME KARIN Administration Trazodone HCl 50 mg 08/02/20 21:00 08/03/20 20:01 Trazodone Hcl 50 Mg Tablet PO 50 mg BEDTIME KARIN Administration Labs CBC & Chem 7: 08/02/20 05:39 08/02/20 05:39 Microbiology Microbiology Results: Microbiology 07/20/20 22:10 Urine [place] Port Urine Culture - Final No growth. 07/16/20 20:37 Blood - Venous Blood Culture - Final No growth after 5 days. 07/16/20 20:37 Blood - Venous Blood Culture - Final No growth after 5 days. 07/14/20 06:55 Blood - Venous Blood Culture - Final No growth after 5 days. 07/14/20 07:02 Blood - Venous Blood Culture - Final No growth after 5 days. 07/17/20 04:30 Urine clean catch - Clean Catch Midstream Urine Culture - Final No growth. 07/10/20 22:43 Blood - Venous Blood Culture - Final No growth after 5 days. 07/10/20 22:39 Blood - Venous Blood Culture - Final No growth after 5 days. 07/11/20 Unknown Urine clean catch - Clean Catch Midstream Urine Culture - Final Assessment and Plan (1) Dysphagia: Status: Acute (2) Pressure ulcer: Status: Acute (3) Aspiration pneumonitis: Problem details: He had Unasyn for 7 days He has had antibiotics previously as well Status: Acute (4) Hypernatremia: Status: Acute (5) Respiratory failure with hypoxia and hypercapnia: Status: Acute (6) MAURO (acute kidney injury): Status: Acute (7) Pneumonia due to COVID-19 virus: Status: Acute (8) COVID-19: Status: Acute (9) Weakness: Status: Acute (10) BPH w urinary obs/LUTS: Status: Acute Assessment and Plan: 75-year-old male who presents to the hospital for acute hypoxic respiratory failure secondary to COVID pneumonia patient was initially placed on high-flow non-rebreather, patient became more hypoxic and was intubated and transferred to ICU, patient was extubated 07/23/2020 currently on high-flow. COVID-19 pneumonia with Acute hypoxic respiratory failure Clinically improving with less oxygen requirement decrease oxygen to 3 L by nasal cannula will continue to wean oxygen, patient is not on home oxygen status post IV dexamethasone , and iv Zosyn, recommend out of bed to chair, encouraged to use incentive spirometry, continue guaifenesin Did not receive remdesivir since was out of window,continue supportive management Aspiration pneumonia Finished course of Zosyn for 7 days , tolerating diet no shortness of breath, oxygen supplementation,oob to chair CT showed bilateral patchy ground-glass opacities. Being followed by ID Dysphagia diet upgraded to chopped solids, with clear liquids ,Ensure t.i.d. 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 Pressure ulcers coccyx and buttock continue air loss mattress, frequent repositioning and wound care, will give oxycodone low-dose for pain control. Insomnia continue trazodone for sleep BPH patient has a Montanez catheter placed by Dr. Gerson BARRIENTOS, resume home medication Flomax and oxybutynin, will consult urology regarding removal of catheter. DVT prophylaxis continue Lovenox
[2020-08-04 12:00] VITALS: BP 120/68; PULSE 76; RESP 18; TEMP 36.5; O2SAT 91
[2020-08-04] MEDS: Omeprazole 20 MG CAPSULE.DR PO (12:37)
[2020-08-04 15:55] VITALS: BP 110/58; PULSE 81; RESP 20; TEMP 36.2; O2SAT 98
[2020-08-04 19:51] VITALS: BP 143/62; PULSE 88; RESP 18; TEMP 36.6; O2SAT 95
[2020-08-04] MEDS: Enoxaparin Sodium 40 MG/0.4 ML SYRINGE SUBCUT (22:01)
[2020-08-04] MEDS: traZODone HCL 50 MG TABLET PO (22:02)
[2020-08-04] MEDS: Tamsulosin HCL 0.4 MG CAPSULE PO (22:02)
[2020-08-05] VITALS (7 sets, daily range): BP systolic 106–124; BP diastolic 50–76; PULSE 74–94; RESP 18–20; TEMP 36.6–37.2; O2SAT 92–95
[2020-08-05] MEDS: 0.9 % Sodium Chloride Flush 3 ML SYRINGE IVFLUSH ×3 (00:38→15:23)
[2020-08-05] MEDS: Omeprazole 20 MG CAPSULE.DR PO (07:37)
[2020-08-05] MEDS: oxyCODONE HCl Immed Release 5 MG TABLET PO ×2 (07:37→13:09)
[2020-08-05] MEDS: guaiFENesin LA 600 MG TAB.ER.12H 1200 MG PO ×2 (08:22→20:13)
--- NOTE | 2020-08-05 11:31 | MHC.CM.PN ---
Plan for dc is for STR and [facility] has accepted pending bed availability and BCBS authorization. Presently on High Flow O2 and not yet medically cleared for dc. CM will follow.
--- NOTE | 2020-08-05 13:47 | MHC.CLN ---
F/U PO INTAKE 25% DIET RX: GRD/M/S-APPROPRIATE CONTINUE THOMAS AND ENSURE TID TO INCREASE CALORIES AND PROMOTE WOUND HEALING NOTED WOUNDS IMPROVING MONITOR PO INTAKE CLOSELY
--- NOTE | 2020-08-05 16:30 | P.PNIM_ITS ---
Subjective Subjective Date of Service: 08/05/20 Interval History: ongoing weakness dyspnea improved c/o insomnia Physical Exam Vital Signs: Vital Signs: Last Vital Signs Temp 97.9 F 08/05/20 15:43 Pulse 94 08/05/20 15:43 Resp 18 08/05/20 15:43 BP 107/50 L 08/05/20 15:43 Pulse Ox 93 08/05/20 15:43 Body Mass Index 39.5 Gen: in no acute distress HEENT: sclera anicteric, moist mucus membranes Neck: supple, CVC with no signs of infection Lungs: no respiratory distress, auscultation deferred due to COVID-19 Heart: normal peripheral pulses Abd: soft, non-tender, non-distended : Montanez draining clear urine Ext: no cyanosis, clubbing, or edema Skin: warm/well-perfused Neuro: alert and oriented x3, generalized motor weakness Psych: appropriate affect Objective Data Current Medications Generic Name Dose Route Start Last Admin Trade Name Freq PRN Reason Stop Dose Admin Acetaminophen 650 mg 07/11/20 05:29 08/02/20 12:48 Acetaminophen 325 Mg Tablet PO 650 mg Q6H PRN Administration Pain, Mild (Pain Scale 1-3) Acetaminophen 325 mg 07/24/20 09:45 Acetaminophen 325 Mg Supp.Rect MS Q6H PRN Fever Al Hydroxide/Mg Hydroxide 30 ml 08/04/20 12:17 Magnesium Hydrox/Alum Hydrox 30 Ml Oral.Susp PO Q4H PRN Heartburn Enoxaparin Sodium 40 mg 07/22/20 22:00 08/04/20 22:01 Enoxaparin Sodium 40 Mg/0.4 Ml Syringe SUBCUT 40 mg Q24H KARIN Administration Guaifenesin 1,200 mg 07/31/20 21:00 08/05/20 08:22 Guaifenesin La 600 Mg Tab.Er.12h PO 1,200 mg BID KARIN Administration Melatonin 3 mg 08/05/20 21:00 Melatonin 3 Mg Tablet PO BEDTIME KARIN Omeprazole 20 mg 08/04/20 12:20 08/05/20 07:37 Omeprazole 20 Mg Capsule.Dr PO 20 mg DAILY@0630 KARIN Administration Oxybutynin Chloride 15 mg 08/02/20 09:00 08/05/20 08:22 Oxybutynin Chloride Er 5 Mg Tab.Er.24 PO 15 mg DAILY KARIN Administration Oxycodone HCl 5 mg 08/03/20 14:29 08/05/20 13:09 Oxycodone Hcl Immed Release 5 Mg Tablet PO 5 mg Q6H PRN Administration Pain, Severe (Pain Scale 7-10) Sodium Chloride 3 ml 07/11/20 08:00 08/05/20 15:23 0.9 % Sodium Chloride Flush 3 Ml Syringe IVFLUSH 3 ml QSHIFT KARIN Administration Tamsulosin HCl 0.4 mg 08/02/20 21:00 08/04/20 22:02 Tamsulosin Hcl 0.4 Mg Capsule PO 0.4 mg BEDTIME KARIN Administration Trazodone HCl 50 mg 08/02/20 21:00 08/04/20 22:02 Trazodone Hcl 50 Mg Tablet PO 50 mg BEDTIME KARIN Administration Labs CBC & Chem 7: 08/02/20 05:39 08/02/20 05:39 Microbiology Microbiology Results: Microbiology 07/20/20 22:10 Urine [place] Port Urine Culture - Final No growth. 07/16/20 20:37 Blood - Venous Blood Culture - Final No growth after 5 days. 07/16/20 20:37 Blood - Venous Blood Culture - Final No growth after 5 days. 07/14/20 06:55 Blood - Venous Blood Culture - Final No growth after 5 days. 07/14/20 07:02 Blood - Venous Blood Culture - Final No growth after 5 days. 07/17/20 04:30 Urine clean catch - Clean Catch Midstream Urine Culture - Final No growth. 07/10/20 22:43 Blood - Venous Blood Culture - Final No growth after 5 days. 07/10/20 22:39 Blood - Venous Blood Culture - Final No growth after 5 days. 07/11/20 Unknown Urine clean catch - Clean Catch Midstream Urine Culture - Final Assessment and Plan (1) Dysphagia: Status: Acute (2) Pressure ulcer: Status: Acute (3) Aspiration pneumonitis: Status: Acute (4) Hypernatremia: Status: Acute (5) Respiratory failure with hypoxia and hypercapnia: Status: Acute (6) MAURO (acute kidney injury): Status: Acute (7) Pneumonia due to COVID-19 virus: Status: Acute (8) COVID-19: Status: Acute (9) Weakness: Status: Acute (10) BPH w urinary obs/LUTS: Status: Acute Assessment and Plan: hospital d#26 75yo M with HTN, BPH admitted for hypoxic due to COVID-19 pneumonia intubated and transferred to ICU 07/20/20 extubated 07/23/20 # acute hypoxic respiratory failure - continue to wean O2 as tolerated, encourage pulmonary toilet # COVID-19 pneumonia - completed course of dexamethasone # aspiration pneumonia - completed course of pip/bridget # dysphagia - NDD solids, thin liquids, IRONWORKER APPRENTICE following # insomnia - add melatonin to trazodone # hyperNa - resolved # hypoK - resolved # critical illness myopathy - will need STR # pressure ulcers of coccyx and buttocks - air loss mattress, frequent positioning, wound care, Ensure + Guille to optimize nutrition - pain control with oxycodone # BPH/obstructive uropathy - Urology consult re: removal of catheter placed with cystoscopy 07/20/20 - continue tamsulosin + oxybutynin # VTE ppx - LMWH # dispo - anticipate STR - d/c central line
[2020-08-05] MEDS: Tamsulosin HCL 0.4 MG CAPSULE PO (20:12)
[2020-08-05] MEDS: Melatonin 3 MG TABLET PO (20:13)
[2020-08-05] MEDS: Enoxaparin Sodium 40 MG/0.4 ML SYRINGE SUBCUT (20:13)
[2020-08-05] MEDS: traZODone HCL 50 MG TABLET PO (20:13)
[2020-08-06] VITALS (7 sets, daily range): BP systolic 95–123; BP diastolic 52–67; PULSE 72–88; RESP 18–20; TEMP 36.6–37.1; O2SAT 91–98
[2020-08-06] MEDS: 0.9 % Sodium Chloride Flush 3 ML SYRINGE IVFLUSH ×4 (02:00→23:18)
[2020-08-06] MEDS: diphenhydrAMINE HCL 50 MG/ML VIAL 25 MG IVPUSH (04:58)
--- NOTE | 2020-08-06 06:07 | PC.NURSE ---
Addendum entered by Felix Stark RN 08/06/20 06:46: sinclair leaking urine...sinclair repositioned and irrigated with return of yllow urine..note bene: sinclair inserted by urologist 07/20/20 Original Note: AWAKE..ALERT..ORIENTED X3...RESPIRATIONS EASY...DIFFUSE RED RASH TO BACK...PATIENT C/O ITCHY SENSATION TO RASH...HOSPITALIST UPDATED...BENADRYL 25MG IV X1 GIVEN...DOZING AFTERWARDS...BRIEFLY AWAKE AND STATED ITCHY SENSATION IMPROVED
[2020-08-06 06:20] LABS: MANUAL DIFF FLAG NO
[2020-08-06 06:27] LABS: Basophils Percent Auto 0.3 % (0-2); Eosinophils Absolute Auto 0.5 X10*3/uL (0.0-0.4); Hematocrit 29.8 % (42-52); Hemoglobin 9.5 g/dl (14.0-18.0); Imm Gran Abs Auto 0.25 X10*3/uL (0.00-0.03); Imm Gran Pct Auto 2.7 % (0.0-0.4); Lymphocytes Absolute Auto 1.5 X10*3/uL (1.2-4.9); Lymphocytes Percent Auto 15.5 % (20-40); Mean Corpuscular HGB Conc 31.9 g/dl (31.0-36.0); Mean Corpuscular Hemoglobin 29.6 pg (27.0-33.0); Mean Corpuscular Volume 92.8 fL (80-98); Mean Platelet Volume 10.1 fL (9.4-12.4); Monocytes Absolute Auto 0.6 X10*3/uL (0.1-1.2); Monocytes Percent Auto 6.1 % (2-11); Neutrophils Absolute Auto 6.6 X10*3/uL (2.0-8.3); Neutrophils Percent Auto 70.4 % (45-73); Platelet Count 141 X10*3/uL (160-400); Red Blood Count 3.21 X10*6/uL (4.60-5.80); Red Cell Distribution Width 15.5 % (11.0-16.0); White Blood Count 9.4 X10*3/uL (4.8-10.8)
[2020-08-06] MEDS: Omeprazole 20 MG CAPSULE.DR PO (06:40)
[2020-08-06 06:57] LABS: Anion Gap 13 (12-20); Blood Urea Nitrogen 20 mg/dL (9-16); Calcium 7.6 mg/dL (8.4-10.2); Carbon Dioxide 28 mmol/L (22-29); Chloride 101 mmol/L (96-108); Creatinine Clr Calc Pharmacy 119.2; Estimated Glomerular Filt Rate > 60; Glucose Random 76 mg/dL (60-115); Magnesium 1.9 mg/dL (1.6-2.6); Potassium 3.5 mmol/L (3.3-5.1); Sodium 138 mmol/L (135-145)
[2020-08-06] MEDS: guaiFENesin LA 600 MG TAB.ER.12H 1200 MG PO ×2 (08:22→20:49)
--- NOTE | 2020-08-06 13:23 | MHC.CM.PN ---
STR continues to be the goal for dc. CM is trying to secure a SNF bed in a facility contracted with Patient's insurance so there is no out of pocket cost to Patient ([facility] Patient is not in contract). CM extended SNF search out to a 30 mile radius and will continue to follow for dc planning. is aware.
--- NOTE | 2020-08-06 14:37 | HO.PM.IMPN ---
Subjective Subjective Date of Service: 08/06/20 Interval History: insomnia improved CVC removed no other new events Physical Exam Vital Signs: Vital Signs: Last Vital Signs Temp 98.6 F 08/06/20 11:37 Pulse 88 08/06/20 11:37 Resp 18 08/06/20 11:37 BP 123/64 08/06/20 11:37 Pulse Ox 98 08/06/20 11:37 Body Mass Index 39.5 Gen: in no acute distress HEENT: sclera anicteric, moist mucus membranes Neck: supple Lungs: no respiratory distress, auscultation deferred due to COVID-19 Heart: normal peripheral pulses Abd: soft, non-tender, non-distended : Montanez draining clear urine Ext: no cyanosis, clubbing, or edema Skin: warm/well-perfused Neuro: alert and oriented x3, generalized motor weakness Psych: appropriate affect Objective Data Current Medications Generic Name Dose Route Start Last Admin Trade Name Freq PRN Reason Stop Dose Admin Acetaminophen 650 mg 07/11/20 05:29 08/02/20 12:48 Acetaminophen 325 Mg Tablet PO 650 mg Q6H PRN Administration Pain, Mild (Pain Scale 1-3) Acetaminophen 325 mg 07/24/20 09:45 Acetaminophen 325 Mg Supp.Rect PA Q6H PRN Fever Al Hydroxide/Mg Hydroxide 30 ml 08/04/20 12:17 Magnesium Hydrox/Alum Hydrox 30 Ml Oral.Susp PO Q4H PRN Heartburn Enoxaparin Sodium 40 mg 07/22/20 22:00 08/05/20 20:13 Enoxaparin Sodium 40 Mg/0.4 Ml Syringe SUBCUT 40 mg Q24H KARIN Administration Guaifenesin 1,200 mg 07/31/20 21:00 08/06/20 08:22 Guaifenesin La 600 Mg Tab.Er.12h PO 1,200 mg BID KARIN Administration Melatonin 3 mg 08/05/20 21:00 08/05/20 20:13 Melatonin 3 Mg Tablet PO 3 mg BEDTIME KARIN Administration Omeprazole 20 mg 08/04/20 12:20 08/06/20 06:40 Omeprazole 20 Mg Capsule. PO 20 mg DAILY@0630 KARIN Administration Oxybutynin Chloride 15 mg 08/02/20 09:00 08/06/20 08:22 Oxybutynin Chloride Er 5 Mg Tab.Er.24 PO 15 mg DAILY KARIN Administration Oxycodone HCl 5 mg 08/03/20 14:29 08/05/20 13:09 Oxycodone Hcl Immed Release 5 Mg Tablet PO 5 mg Q6H PRN Administration Pain, Severe (Pain Scale 7-10) Sodium Chloride 3 ml 07/11/20 08:00 08/06/20 08:22 0.9 % Sodium Chloride Flush 3 Ml Syringe IVFLUSH 3 ml QSHIFT KARIN Administration Tamsulosin HCl 0.4 mg 08/02/20 21:00 08/05/20 20:12 Tamsulosin Hcl 0.4 Mg Capsule PO 0.4 mg BEDTIME KARIN Administration Trazodone HCl 50 mg 08/02/20 21:00 08/05/20 20:13 Trazodone Hcl 50 Mg Tablet PO 50 mg BEDTIME KARIN Administration Labs CBC & Chem 7: 08/06/20 06:06 08/06/20 06:06 Labs: Laboratory Results - last 24 hr 08/06/20 08/06/20 06:06 06:06 WBC 9.4 RBC 3.21 L Hgb 9.5 L Hct 29.8 L MCV 92.8 MCH 29.6 MCHC 31.9 RDW 15.5 Plt Count 141 L MPV 10.1 Immature Gran % (Auto) 2.7 H Neut % (Auto) 70.4 Lymph % (Auto) 15.5 L [place] % (Auto) 6.1 Eos % (Auto) 5.0 H Baso % (Auto) 0.3 Lymph # (Auto) 1.5 [place] # (Auto) 0.6 Eos # (Auto) 0.5 H Baso # (Auto) 0.0 Abs Immat Gran (auto) 0.25 H Absolute Neuts (auto) 6.6 Absolute Nucleated RBC 0.000 Nucleated RBC % (auto) 0.0 Sodium 138 Potassium 3.5 Chloride 101 Carbon Dioxide 28 Anion Gap 13 BUN 20 H Creatinine 0.71 Estim Creat Clear Calc 119.2 Estimated GFR > 60 Random Glucose 76 Calcium 7.6 L Magnesium 1.9 Microbiology Microbiology Results: Microbiology 07/20/20 22:10 Urine Mont[place] Port Urine Culture - Final No growth. 07/16/20 20:37 Blood - Venous Blood Culture - Final No growth after 5 days. 07/16/20 20:37 Blood - Venous Blood Culture - Final No growth after 5 days. 07/14/20 06:55 Blood - Venous Blood Culture - Final No growth after 5 days. 07/14/20 07:02 Blood - Venous Blood Culture - Final No growth after 5 days. 07/17/20 04:30 Urine clean catch - Clean Catch Midstream Urine Culture - Final No growth. 07/10/20 22:43 Blood - Venous Blood Culture - Final No growth after 5 days. 07/10/20 22:39 Blood - Venous Blood Culture - Final No growth after 5 days. 07/11/20 Unknown Urine clean catch - Clean Catch Midstream Urine Culture - Final Assessment and Plan (1) Dysphagia: Status: Acute (2) Pressure ulcer: Status: Acute (3) Aspiration pneumonitis: Status: Acute (4) Hypernatremia: Status: Acute (5) Respiratory failure with hypoxia and hypercapnia: Status: Acute (6) MAURO (acute kidney injury): Status: Acute (7) Pneumonia due to COVID-19 virus: Status: Acute (8) COVID-19: Status: Acute (9) Weakness: Status: Acute (10) BPH w urinary obs/LUTS: Status: Acute Assessment and Plan: hospital d#28 75yo M with HTN, BPH admitted for hypoxic due to COVID-19 pneumonia intubated and transferred to ICU 07/20/20 extubated 07/23/20 # acute hypoxic respiratory failure - continue to wean O2 as tolerated, encourage pulmonary toilet # COVID-19 pneumonia - completed course of dexamethasone # aspiration pneumonia - completed course of pip/bridget # dysphagia - NDD2 solids, thin liquids, BIOFUELS PRODUCTION TECHNICIAN following # insomnia - trazodone, melatonin # hyperNa - resolved # hypoK - resolved # critical illness myopathy - will need STR # pressure ulcers of coccyx and buttocks - air loss mattress, frequent positioning, wound care, Ensure + Guille to optimize nutrition - pain control with oxycodone # BPH/obstructive uropathy - Urology consult re: removal of catheter placed with cystoscopy 07/20/20 - continue tamsulosin + oxybutynin # VTE ppx - LMWH # dispo - anticipate STR I updated the pt's healthcare proxy Estefania by phone [phone] as well as his son Efra by phone [phone]
--- NOTE | 2020-08-06 15:15 | MHC.CM.PN ---
Patient's PCP is Dr. Jon Crawford.
[2020-08-06] MEDS: Melatonin 3 MG TABLET PO (20:49)
[2020-08-06] MEDS: Tamsulosin HCL 0.4 MG CAPSULE PO (20:49)
[2020-08-06] MEDS: Enoxaparin Sodium 40 MG/0.4 ML SYRINGE SUBCUT (20:49)
[2020-08-06] MEDS: traZODone HCL 50 MG TABLET PO (20:49)
[2020-08-07 04:00] VITALS: BP 109/62; PULSE 72; RESP 20; TEMP 36.8; O2SAT 95
[2020-08-07] MEDS: oxyCODONE HCl Immed Release 5 MG TABLET PO ×2 (04:24→11:13)
[2020-08-07] MEDS: Omeprazole 20 MG CAPSULE.DR PO (06:16)
[2020-08-07 07:29] VITALS: BP 105/54; PULSE 82; RESP 18; TEMP 36.2; O2SAT 96
[2020-08-07 09:00] VITALS: BMI 38.9
[2020-08-07] MEDS: guaiFENesin LA 600 MG TAB.ER.12H 1200 MG PO (09:30)
[2020-08-07] MEDS: Acetaminophen 325 MG TABLET 650 MG PO (09:31)
[2020-08-07] MEDS: 0.9 % Sodium Chloride Flush 3 ML SYRINGE IVFLUSH (09:32)
--- NOTE | 2020-08-07 10:27 | P.PNIM_ITS ---
Subjective Subjective Date of Service: 08/07/20 Interval History: no new events Physical Exam Vital Signs: Vital Signs: Last Vital Signs Temp 97.2 F 08/07/20 07:29 Pulse 82 08/07/20 07:29 Resp 18 08/07/20 07:29 BP 105/54 L 08/07/20 07:29 Pulse Ox 96 08/07/20 07:29 Body Mass Index 39.5 Gen: in no acute distress HEENT: sclera anicteric, moist mucus membranes Neck: supple Lungs: no respiratory distress, auscultation deferred due to COVID-19 Heart: normal peripheral pulses Abd: soft, non-tender, non-distended : Montanez draining clear urine Ext: no cyanosis, clubbing, or edema Skin: warm/well-perfused Neuro: alert and oriented x3, generalized motor weakness improved over last 2d Psych: appropriate affect Objective Data Current Medications Generic Name Dose Route Start Last Admin Trade Name Freq PRN Reason Stop Dose Admin Acetaminophen 650 mg 07/11/20 05:29 08/07/20 09:31 Acetaminophen 325 Mg Tablet PO 650 mg Q6H PRN Administration Pain, Mild (Pain Scale 1-3) Acetaminophen 325 mg 07/24/20 09:45 Acetaminophen 325 Mg Supp.Rect MD Q6H PRN Fever Al Hydroxide/Mg Hydroxide 30 ml 08/04/20 12:17 Magnesium Hydrox/Alum Hydrox 30 Ml Oral.Susp PO Q4H PRN Heartburn Enoxaparin Sodium 40 mg 07/22/20 22:00 08/06/20 20:49 Enoxaparin Sodium 40 Mg/0.4 Ml Syringe SUBCUT 40 mg Q24H KARIN Administration Guaifenesin 1,200 mg 07/31/20 21:00 08/07/20 09:30 Guaifenesin La 600 Mg Tab.Er.12h PO 1,200 mg BID KARIN Administration Melatonin 3 mg 08/05/20 21:00 08/06/20 20:49 Melatonin 3 Mg Tablet PO 3 mg BEDTIME KARIN Administration Omeprazole 20 mg 08/04/20 12:20 08/07/20 06:16 Omeprazole 20 Mg Capsule. PO 20 mg DAILY@0630 KARIN Administration Oxybutynin Chloride 15 mg 08/02/20 09:00 08/07/20 09:30 Oxybutynin Chloride Er 5 Mg Tab.Er.24 PO 15 mg DAILY KARIN Administration Oxycodone HCl 5 mg 08/03/20 14:29 08/07/20 04:24 Oxycodone Hcl Immed Release 5 Mg Tablet PO 5 mg Q6H PRN Administration Pain, Severe (Pain Scale 7-10) Sodium Chloride 3 ml 07/11/20 08:00 08/07/20 09:32 0.9 % Sodium Chloride Flush 3 Ml Syringe IVFLUSH 3 ml QSHIFT KARIN Administration Tamsulosin HCl 0.4 mg 08/02/20 21:00 08/06/20 20:49 Tamsulosin Hcl 0.4 Mg Capsule PO 0.4 mg BEDTIME KARIN Administration Trazodone HCl 50 mg 08/02/20 21:00 08/06/20 20:49 Trazodone Hcl 50 Mg Tablet PO 50 mg BEDTIME KARIN Administration Labs CBC & Chem 7: 08/06/20 06:06 08/06/20 06:06 Microbiology Microbiology Results: Microbiology 07/20/20 22:10 Urine [place]ane[place] Port Urine Culture - Final No growth. 07/16/20 20:37 Blood - Venous Blood Culture - Final No growth after 5 days. 07/16/20 20:37 Blood - Venous Blood Culture - Final No growth after 5 days. 07/14/20 06:55 Blood - Venous Blood Culture - Final No growth after 5 days. 07/14/20 07:02 Blood - Venous Blood Culture - Final No growth after 5 days. 07/17/20 04:30 Urine clean catch - Clean Catch Midstream Urine Culture - Fi nal No growth. 07/10/20 22:43 Blood - Venous Blood Culture - Final No growth after 5 days. 07/10/20 22:39 Blood - Venous Blood Culture - Final No growth after 5 days. 07/11/20 Unknown Urine clean catch - Clean Catch Midstream Urine Culture - Final Assessment and Plan (1) Dysphagia: Status: Acute (2) Pressure ulcer: Status: Acute (3) Aspiration pneumonitis: Status: Acute (4) Hypernatremia: Status: Acute (5) Respiratory failure with hypoxia and hypercapnia: Status: Acute (6) MAURO (acute kidney injury): Status: Acute (7) Pneumonia due to COVID-19 virus: Status: Acute (8) COVID-19: Status: Acute (9) Weakness: Status: Acute (10) BPH w urinary obs/LUTS: Status: Acute Assessment and Plan: hospital d#29 75yo M with HTN, BPH admitted for hypoxic due to COVID-19 pneumonia intubated and transferred to ICU 07/20/20 extubated 07/23/20 # acute hypoxic respiratory failure - continue to wean O2 as tolerated, encourage pulmonary toilet # COVID-19 pneumonia - completed course of dexamethasone # aspiration pneumonia - completed course of pip/bridget # dysphagia - NDD2 solids, thin liquids, 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
[2020-08-07 10:43] VITALS: BP 105/54; PULSE 82; O2SAT 96
--- NOTE | 2020-08-07 11:00 | MHC.CLN ---
F/U PO INTAKE VARIABLE DIET RX: CHOPPED-APPROPRIATE CONTINUE THOMAS AND ENSURE TID TO INCREASE CALORIES AND PROMOTE WOUND HEALING WOUNDS SLOWLY IMPROVING PER NURSING MONITOR PO INTAKE CLOSELY
[2020-08-07 12:00] VITALS: BP 108/66; PULSE 78; RESP 18; TEMP 36.6; O2SAT 96
--- NOTE | 2020-08-07 15:03 | MHC.CM.PN ---
Patient has been medically cleared for dc to SNF today. Patient will dc to [facility] today at 5PM, via [facility]. Son/Efra and S.O./Estefania are aware of and in agreement with the dc plan (second IMM addressed).
--- NOTE | 2020-08-07 15:10 | P.DS_ITS ---
DS: Providers Provider Date of Service: 08/07/20 Date of admission: 07/11/20 05:29 Primary care physician: Jon Crawford MD Consults: 07/11/20 12:52 Consult Respiratory Therapy Routine Reason for consultation: CPAP at home Has provider been notified: Yes 07/14/20 08:57 Consult to Infectious Diseases Routine Consulting Provider: Yanci Salinas Reason for consultation: covid pneumonia hypoxia 07/18/20 10:54 Consult to Wound Care Provider Routine Consulting Provider: Paty Romero Reason for consultation: sacral ulcer 07/20/20 14:35 Consult to Urology Stat Consulting Provider: Kayden Nieto III Reason for consultation: unable to place sinclair catheter 08/05/20 10:49 Consult to Urology Routine Consulting Provider: Kayden Nieto III Reason for consultation: Sinclair- OK to remove? DS: Diagnosis Discharge Diagnosis (1) Dysphagia: Status: Acute (2) Pressure ulcer: Status: Acute (3) Aspiration pneumonitis: Status: Acute (4) Hypernatremia: Status: Acute (5) Respiratory failure with hypoxia and hypercapnia: Status: Acute (6) MAURO (acute kidney injury): Status: Acute (7) Pneumonia due to COVID-19 virus: Status: Acute (8) COVID-19: Status: Acute (9) Weakness: Status: Acute (10) BPH w urinary obs/LUTS: Status: Acute (11) ARDS (adult respiratory distress syndrome): Status: Acute (12) Delirium: Status: Acute (13) Critical illness myopathy: Status: Acute DS: Medications Discharge Medications Home Medications: Home Medications Medication Instructions Recorded Confirmed bromfenac 0.09 % eye drops 0.09 drp OPHTHALMIC (EYE) DAILY 05/17/20 07/11/20 oxybutynin chloride 15 mg 15 mg PO DAILY 05/17/20 07/11/20 tablet,extended release 24 hr tamsulosin 0.4 mg capsule 0.4 mg PO DAILY 05/17/20 07/11/20 Previous Rx's Medication Instructions Recorded melatonin 3 mg PO BEDTIME #30 tab 08/07/20 omeprazole 20 mg PO DAILY@0630 #30 cap 08/07/20 oxycodone 5 mg PO Q6H PRN #30 tab 08/07/20 trazodone 50 mg PO BEDTIME #30 tab 08/07/20 DS: Summary Hospital Course Hospital Course: From history and physical by admitting hospitalist Bella Brennan, 07/11/20: 75-year-old male with past medical history of hypertension as well as BPH with urinary obstruction who presents to the hospital after being on the floor for couple of hours and unable to get of due to weakness. Patient was diagnosed with COVID-19 viral infection few days ago and has been feeling progressively weaker and weaker. He reports that he lowered himself to the floor on the day of presentation and was on the floor for up to 10 hours without being able to get up due to his generalized weakness. His family were not successful in getting her off the floor and called EMS and Was brought into the hospital. He denies having any shortness of breath, no chest pain, he is coughing but dry, he reports low oral intake but no loss of appetite, no abdominal pain, no diarrhea or constipation . He denies any urinary symptoms and no lower extremity edema. The patient was initially admitted to the hospitalist service and was treated with supplemental oxygen and dexamethasone. However, he developed worsening respiratory failure due to ARDS and had to be intubated on 07/20/20. ICU course was compliated by aspiration pneumonia and acute kidney injury. He was treated with a course of piperacillin/tazobactam for pneumonia and serum creatinine improved with supportive care. He required urological consultation for placement of Sinclair under cystoscopy due to obstructive uropathy. He was extubated to high-flow nasal cannula successfully on 07/23/20. His post-ICU course was complicated by critical illness myopathy. He also developed pressure ulcers of the coccyx and buttocks. Nutrition was optimized with supplements. Diet was advanced to NDD3 (chopped) solids plus thin liquids. Oxygen was gradually weaned down to 3L via nasal cannula. He was discharged to [facility] for short-term rehabilitation to include PT, OT, and [employer]. Time Spent with Patient Time attestation: Total time spent providing and/or coordinating discharge s ervices: 40 minutes Discharge coordination time: Greater than 30 minutes Physical Exam Vital Signs: Vital Signs: Last Vital Signs Temp 97.9 F 08/07/20 12:00 Pulse 78 08/07/20 12:00 Resp 18 08/07/20 12:00 BP 108/66 08/07/20 12:00 Pulse Ox 96 08/07/20 12:00 Body Mass Index 38.9 Gen: in no acute distress HEENT: sclera anicteric, moist mucus membranes Neck: supple Lungs: no respiratory distress, auscultation deferred due to COVID-19 Heart: normal peripheral pulses Abd: soft, non-tender, non-distended : Sinclair draining clear urine Ext: no cyanosis, clubbing, or edema Skin: warm/well-perfused Neuro: alert and oriented x3, generalized motor weakness improved over last 2d Psych: appropriate affect DS: Data Data Completed and Pending Labs on day of discharge: Laboratory Results WBC 9.4 X10*3/uL (4.8-10.8) 08/06/20 06:06 RBC 3.21 X10*6/uL (4.60-5.80) L 08/06/20 06:06 Hgb 9.5 g/dl (14.0-18.0) L 08/06/20 06:06 Hct 29.8 % (42-52) L 08/06/20 06:06 MCV 92.8 fL (80-98) 08/06/20 06:06 MCH 29.6 pg (27.0-33.0) 08/06/20 06:06 MCHC 31.9 g/dl (31.0-36.0) 08/06/20 06:06 RDW 15.5 % (11.0-16.0) 08/06/20 06:06 Plt Count 141 X10*3/uL (160-400) L 08/06/20 06:06 MPV 10.1 fL (9.4-12.4) 08/06/20 06:06 Immature Gran % (Auto) 2.7 % (0.0-0.4) H 08/06/20 06:06 Neut % (Auto) 70.4 % (45-73) 08/06/20 06:06 Lymph % (Auto) 15.5 % (20-40) L 08/06/20 06:06 Kaufman % (Auto) 6.1 % (2-11) 08/06/20 06:06 Eos % (Auto) 5.0 % (0-4) H 08/06/20 06:06 Baso % (Auto) 0.3 % (0-2) 08/06/20 06:06 Lymph # (Auto) 1.5 X10*3/uL (1.2-4.9) 08/06/20 06:06 Kaufman # (Auto) 0.6 X10*3/uL (0.1-1.2) 08/06/20 06:06 Eos # (Auto) 0.5 X10*3/uL (0.0-0.4) H 08/06/20 06:06 Baso # (Auto) 0.0 X10*3/uL (0.0-0.2) 08/06/20 06:06 Abs Immat Gran (auto) 0.25 X10*3/uL (0.00-0.03) H 08/06/20 06:06 Absolute Neuts (auto) 6.6 X10*3/uL (2.0-8.3) 08/06/20 06:06 Absolute Nucleated RBC 0.000 X10*3/uL (0.0-0.012) 08/06/20 06:06 Nucleated RBC % (auto) 0.0 /100WBC (0.0-0.2) 08/06/20 06:06 Neutrophils % (Manual) 70 % (45-73) 07/23/20 05:15 Band Neutrophils % 1 % (3-5) L 07/23/20 05:15 Lymphocytes % (Manual) 12 % (20-40) L 07/23/20 05:15 Atypical Lymphs % (Man) 2 % (0-6) 07/23/20 05:15 Monocytes % (Manual) 7 % (2-11) 07/23/20 05:15 Eosinophils % (Manual) 1 % (0-4) 07/21/20 05:42 Metamyelocytes % 4 % 07/23/20 05:15 Myelocytes % 2 % 07/23/20 05:15 Abs Neuts (Manual) 7.3 X10*3/uL (2.2-7.9) 07/23/20 05:15 Lymphocytes # (Manual) 1.2 X10*3/uL (0.6-4.8) 07/23/20 05:15 Atyp Lymphs # (Manual) 0.2 x10*3/uL 07/23/20 05:15 Monocytes # (Manual) 0.7 X10*3/uL (0.0-1.2) 07/23/20 05:15 Eosinophils # (Manual) 0.2 X10*3/UL (0.0-0.8) 07/21/20 05:42 Metamyelocytes # 0.4 X10*3/uL 07/23/20 05:15 Myelocytes # 0.2 X10*/uL 07/23/20 05:15 Smudge Cells PRESENT 07/23/20 05:15 Toxic Granulation PRES 07/23/20 05:15 Toxic Vacuolation PRESENT 07/23/20 05:15 Platelet Estimate DECREASED (NORMAL) 07/23/20 05:15 Plt Morphology Comment NORMAL 07/23/20 05:15 RBC Morphology NOTED 07/23/20 05:15 Microcytosis 1+ 07/23/20 05:15 Acanthocytes (Spur) 1+ 07/23/20 05:15 Smear Tech's Comments VERIFIED 07/12/20 05:02 PT 12.8 SEC (10.8-13.0) 07/22/20 05:25 INR 1.1 (0.9-1.1) 07/22/20 05:25 APTT 34.5 SEC (24.1-38.0) 07/22/20 05:25 D-Dimer 4042 NG/ML 07/22/20 05:25 ABG pH 7.22 (7.35-7.45) L 07/20/20 10:14 ABG pCO2 107 mmHg (32-45) H* 07/20/20 10:14 ABG pO2 64 mmHg (83-108) L 07/20/20 10:14 ABG HCO3 44 mmol/L (22-26) H 07/20/20 10:14 ABG O2 Saturation 84.0 % 07/20/20 10:14 ABG Base Excess 11.4 07/20/20 10:14 VBG pH 7.38 (7.32-7.43) 07/27/20 05:14 VBG pCO2 70 mmHg 07/27/20 05:14 VBG pO2 132 mmHg 07/27/20 05:14 VBG HCO3 42 mmol/L 07/27/20 05:14 VBG O2 Saturation 98.0 % 07/27/20 05:14 VBG Base Excess 14.5 mmol/L 07/27/20 05:14 Oxygen Given 100% 07/20/20 10:14 Sodium 138 mmol/L (135-145) 08/06/20 06:06 Potassium 3.5 mmol/L (3.3-5.1) 08/06/20 06:06 Chloride 101 mmol/L (96-108) 08/06/20 06:06 Carbon Dioxide 28 mmol/L (22-29) 08/06/20 06:06 Anion Gap 13 (12-20) 08/06/20 06:06 BUN 20 mg/dL (9-16) H 08/06/20 06:06 Creatinine 0.71 mg/dL (0.5-1.4) 08/06/20 06:06 Estim Creat Clear Calc 119.2 08/06/20 06:06 Estimated GFR > 60 08/06/20 06:06 Random Glucose 76 mg/dL (60-115) 08/06/20 06:06 Lactic Acid 2.2 mmol/L (0.5-2.0) H* 07/16/20 12:59 Lactic Acid Fup @ 2Hr 2.2 mmol/L (0.5-2.0) H* 07/16/20 23:14 Lactic Acid Fup @ 4Hr 2.2 mmol/L (0.5-2.0) H* 07/17/20 01:36 Calcium 7.6 mg/dL (8.4-10.2) L 08/06/20 06:06 Phosphorus 4.5 mg/dL (2.7-4.5) 07/27/20 05:14 Magnesium 1.9 mg/dL (1.6-2.6) 08/06/20 06:06 Ferritin 628 ng/mL (20-250) H 07/22/20 05:25 Total Bilirubin 1.2 mg/dL (0.0-1.0) H 07/23/20 05:15 Direct Bilirubin 0.5 mg/dL (0.0-0.5) 07/10/20 23:55 AST 41 U/L (5-37) H D 07/23/20 05:15 ALT 34 U/L (0-40) 07/23/20 05:15 Alkaline Phosphatase 77 U/L (39-117) D 07/23/20 05:15 Lactate Dehydrogenase 414 U/L (118-273) H 07/22/20 05:25 Total Creatine Kinase 164 U/L (38-174) D 07/17/20 05:46 Troponin I High Sens 34.3 ng/L (<3.5-35.0) 07/11/20 01:50 C-Reactive Protein 10.80 mg/dL (< or = 0.50) H 07/21/20 05:42 B-Natriuretic Peptide 60 pg/mL (<100) 07/21/20 05:42 Total Protein 5.6 g/dL (6.5-8.0) L 07/23/20 05:15 Albumin 3.4 g/dL (3.5-5.0) L 07/27/20 05:14 Urine Color RED 07/20/20 21:39 Urine Appearance TURBID 07/20/20 21:39 Urine pH 5.5 (5.0-8.0) 07/20/20 21:39 Ur Specific [place] 1.025 (1.005-1.025) 07/20/20 21:39 Urine Protein 3+ MG/DL (NEG-TRACE) H 07/20/20 21:39 Urine Glucose (UA) NEG MG/DL (NEG) 07/20/20 21:39 Urine Ketones 5 MG/DL (NEG) 07/20/20 21:39 Urine Blood 3+ (NEG) H 07/20/20 21:39 Urine Nitrite NEG (NEG) 07/20/20 21:39 Ur Leukocyte Esterase TRACE (NEG) H 07/20/20 21:39 Urine RBC TNTC /HPF (0) H 07/20/20 21:39 Urine WBC 10-14 /HPF (0-4) H 07/20/20 21:39 Ur Squamous Epith Cells 1+ /LPF 07/20/20 21:39 Amorphous Sediment 1+ /LPF 07/17/20 04:33 Urine Bacteria 2+ /LPF 07/20/20 21:39 Hyaline Casts 0-2 /LPF 07/11/20 10:00 Granular Casts 0-2 /LPF 07/11/20 10:00 Urine Mucus 2+ /LPF 07/17/20 04:33 Vancomycin Trough 7.6 mcg/mL (10.0-20.0) L 07/18/20 10:03 Coronavirus (PCR) POSITIVE (Negative) A 07/10/20 22:16 Influenza Type A (PCR) NEGATIVE (Negative) 07/10/20 22:16 Influenza Type B (PCR) NEGATIVE (Negative) 07/10/20 22:16 RSV RNA Qual (PCR) NEGATIVE (Negative) 07/10/20 22:16 Blood Type B Positive 07/14/20 07:49 Antibody Screen NEGATIVE 07/14/20 07:[address] 07/10/20 20:54 IMPRESSION: There are numerous patchy areas of groundglass opacities throughout the lungs bilaterally, consistent with history of viral COVID pneumonitis. Chest X-Ray 07/25/20 08:45 IMPRESSION: There is a new enteric tube extending into the stomach. Unchanged appearance of the lungs with diffuse bilateral airspace opacities. Discharge Plan Discharge [facility] Dis[facility]: [facility]] Vinay Lr MD [Physician] - Physician,Unknown [Primary Care Provider] - Discharge Medications: New trazodone 50 mg Tablet 50 mg PO BEDTIME Qty: 30 RF: 0 melatonin 3 mg Tablet 3 mg PO BEDTIME Qty: 30 RF: 0 omeprazole 20 mg Capsule,Delayed Release(Dr/Ec) 20 mg PO DAILY@0630 Qty: 30 RF: 0 oxycodone 5 mg Tablet 5 mg PO Q6H PRN (Reason: Pain, Severe (Pain Scale 7-10)) Qty: 30 RF: 0 Continued tamsulosin 0.4 mg capsule 0.4 mg PO DAILY RF: 0 bromfenac 0.09 % drops 0.09 drp ophthalmic (eye) DAILY RF: 0 oxybutynin chloride 15 mg tablet extended release 24hr 15 mg PO DAILY RF: 0 Discontinued irbesartan-hydrochlorothiazide 150-12.5 mg tablet 2 tab PO DAILY RF: 0 Discharge Orders: Discharge Order (Routine); Ordered 08/07/20 Ordered By: Morgan Way Diet: other Activity on Discharge: As tolerated Stand Alone Forms: Patient Portal Discharge page Care Plan Goals: recovery from COVID-19 and ICU stay Health Concerns: COVID-19 pneumonia with acute respiratory distress syndrome and hypoxia Plan of Treatment: to [facility] for short-term rehabilitation take melatonin and trazodone for sleep take oxycodone for pain diet: NDD3 (chopped) with Ensure 1 can 3x a day plus Guille 1 packet 2x a day follow up with Urology in 1-2 weeks to consider Sinclair removal Patient Instructions: Pneumonia (DC), COVID-19 (Coronavirus Disease 2019) (DC)
[2020-08-07 15:50] VITALS: BP 123/63; PULSE 85; RESP 18; TEMP 37.1; O2SAT 98
[2020-08-07 18:55] VITALS: BP 114/64; PULSE 84; RESP 18; TEMP 36.6; O2SAT 97
== END 2020-08-07 19:00 | disposition skilled nursing facility (03) | DRG 208 ==
LOC: HO.ED 07-11 01:14 → HO.EDOVER 07-11 05:33 → HO.IMC 07-11 08:04 → HO.ICU 07-20 11:07 → HO.ISO 07-27 15:30 → HO.IMC 07-29 11:57
PROVIDERS: Hospitalist; Internal Medicine; Internal Medicine Cardiovascular Disease; Internal Medicine Pulmonary Disease; Physician Assistant; Student in an Organized Health Care Education/Training Program; Admitting Provider Internal Medicine; Emergency Provider Internal Medicine; PCP Internal Medicine; Visit Provider Family Medicine
DX: U07.1 COVID-19 (principal); J12.82 Pneumonia due to coronavirus disease 2019; J80 Acute respiratory distress syndrome; J69.0 Pneumonitis due to inhalation of food and vomit; M62.82 Rhabdomyolysis; N17.9 Acute kidney failure, unspecified; F05 Delirium due to known physiological condition; N13.8 Other obstructive and reflux uropathy; E87.0 Hyperosmolality and hypernatremia; G72.9 Myopathy, unspecified; R13.10 Dysphagia, unspecified; E87.6 Hypokalemia; N40.1 Benign prostatic hyperplasia with lower urinary tract symptoms; L89.322 Pressure ulcer of left buttock, stage 2; L89.312 Pressure ulcer of right buttock, stage 2; Z79.899 Other long term (current) drug therapy
CPT/HCPCS: 0241U; 36415; 36600; 71045; 71250; 80048; 80053; 80076; 80202; 81001; 81003; 82040; 82310; 82550; 82728; 82803; 83605; 83615; 83735; 83880; 84100; 84484; 85007; 85025; 85027; 85379; 85610; 85730; 86140; 86850; 86900; 86901; 87040; 87086; 92526; 92610; 93005; 94002; 94003; 94640; 94660; 94799; 96361; 96374; 97110; 97112; 97116; 97140; 97163; 99285; J0131; J0295; J0696; J1100; J1200; J1650; J1940; J2543; J3370; P9047

== ENCOUNTER → 2020-10-29 09:49 | Outpatient (BNVA) | payer MEDICARE, SELFPAY | PROVIDERS: PCP Internal Medicine; Visit Provider Urology | DX: Z13.89 Encounter for screening for other disorder (principal) | CPT/HCPCS: Q3014 ==

== ENCOUNTER → 2020-12-17 10:52 | Outpatient (BNVA) | payer MEDICARE, SELFPAY | PROVIDERS: PCP Internal Medicine Cardiovascular Disease; Visit Provider Urology | DX: N40.1 Benign prostatic hyperplasia with lower urinary tract symptoms (principal); N13.8 Other obstructive and reflux uropathy; N32.0 Bladder-neck obstruction; N52.01 Erectile dysfunction due to arterial insufficiency; R35.1 Nocturia | CPT/HCPCS: 52000; 99212 ==

== ENCOUNTER 2021-07-02 12:24 | Outpatient (REF) | payer MEDICARE, SELFPAY ==
[2021-07-02 14:22] LABS: Appearance Urine HAZY; Color Urine RED; Glucose Urine UA NEG (NEG); Leukocyte Esterase Urine 1+ (NEG); Nitrite Urine POS (NEG); PH 6.5 (5.0-8.0); Urine Blood 3+ (NEG); Urine Ketones NEG (NEG); Urine Protein 2+ MG/DL (NEG-TRACE)
[2021-07-02 14:32] LABS: Bacteria Urine TRACE /LPF; RBC Urine 50-75 /HPF (0)
== END 2021-07-02 12:25 | disposition home or self-care (01) ==
LOC: HO.LAB 12:24
PROVIDERS: PCP Psychiatry & Neurology Neurology; Visit Provider Urology
DX: N39.0 Urinary tract infection, site not specified (principal)
CPT/HCPCS: 81001; 87086

== ENCOUNTER 2021-07-29 14:53 | Outpatient (REF) | payer MEDICARE, SELFPAY ==
[2021-07-29 16:51] LABS: Appearance Urine CLEAR; Color Urine YELLOW; Glucose Urine UA NEG (NEG); Leukocyte Esterase Urine NEG (NEG); Nitrite Urine POS (NEG); Urine Blood 3+ (NEG); Urine Ketones NEG (NEG); Urine Protein NEG (NEG-TRACE)
[2021-07-29 17:16] LABS: Bacteria Urine 1+ /LPF; Squamous Epithelial Cell Urine TRACE /LPF
[2021-07-29 17:17] LABS: Amorphous Sediment Urine TRACE /LPF
== END 2021-07-29 14:54 | disposition home or self-care (01) ==
LOC: HO.LAB 14:53
PROVIDERS: PCP Internal Medicine; Visit Provider Urology
DX: N39.0 Urinary tract infection, site not specified (principal); B95.8 Unspecified staphylococcus as the cause of diseases classified elsewhere; N40.1 Benign prostatic hyperplasia with lower urinary tract symptoms; N13.8 Other obstructive and reflux uropathy; Z12.5 Encounter for screening for malignant neoplasm of prostate
CPT/HCPCS: 81001; 87086; 87088; 87186

== ENCOUNTER → 2021-08-29 13:16 | Outpatient (BNVA) | payer MEDICARE, SELFPAY | PROVIDERS: PCP Internal Medicine; Visit Provider Urology | DX: Z13.89 Encounter for screening for other disorder (principal) | CPT/HCPCS: Q3014 ==

== ENCOUNTER 2021-10-23 11:34 | Outpatient (REF) | payer MEDICARE, SELFPAY ==
[2021-10-23 14:01] LABS: Appearance Urine CLOUDY; Color Urine BROWN; Glucose Urine UA NEG (NEG); Leukocyte Esterase Urine TRACE (NEG); Nitrite Urine POS (NEG); PH 6.5 (5.0-8.0); Urine Blood 3+ (NEG); Urine Ketones NEG (NEG); Urine Protein 1+ MG/DL (NEG-TRACE)
[2021-10-23 14:14] LABS: WBC Urine 0-2 /HPF (0-4)
[2021-10-23 14:15] LABS: Bacteria Urine TRACE /LPF; RBC Urine TNTC /HPF (0)
== END 2021-10-23 11:35 | disposition home or self-care (01) ==
LOC: HO.HMGCLDS 11:34
PROVIDERS: Visit Provider Urology
DX: N39.0 Urinary tract infection, site not specified (principal)
CPT/HCPCS: 81001; 87086; 87088; 87186

== ENCOUNTER 2022-08-21 10:51 | Outpatient (REF) | payer MEDICARE, SELFPAY ==
[2022-08-21 14:44] LABS: PSA,Total (Free>4and<10) 3.91 ng/mL (0.00-4.00)
== END 2022-08-21 10:52 | disposition home or self-care (01) ==
LOC: HO.HMGCLDS 10:51
PROVIDERS: PCP Nurse Practitioner Family; Visit Provider Urology
DX: N40.1 Benign prostatic hyperplasia with lower urinary tract symptoms (principal); N13.8 Other obstructive and reflux uropathy; Z12.5 Encounter for screening for malignant neoplasm of prostate
CPT/HCPCS: 36415; 84153

== ENCOUNTER 2022-08-26 13:25 | Outpatient (REF) | payer MEDICARE, SELFPAY | END 2022-08-26 13:26 | disposition home or self-care (01) | LOC: HO.LAB 13:25 | PROVIDERS: PCP Nurse Practitioner Family; Visit Provider Urology | DX: N39.0 Urinary tract infection, site not specified (principal); N40.1 Benign prostatic hyperplasia with lower urinary tract symptoms; N13.8 Other obstructive and reflux uropathy; N52.9 Male erectile dysfunction, unspecified; R35.1 Nocturia; N28.1 Cyst of kidney, acquired; R31.0 Gross hematuria | CPT/HCPCS: 51798; 87086; 87088; 87186; 99212 ==

== ENCOUNTER 2022-10-26 07:13 | Day surgery (SDC) | payer MEDICARE, SELFPAY ==
--- NOTE | 2022-10-23 10:07 | P.CONAN_ITS ---
Documented by User: Sussy Duke NP 10/23/22 10:08 HPI - Anesthesia Eval Consult details Narrative: 77yo M for Cystoscopy Incision Bladder Neck PMFSH Active Problems Active Problems: All Active Problems (Updated 08/26/22 @ 13:58 by Vinay Lr MD) Gross hematuria (Acute) Erectile dysfunction due to arterial insufficiency (Acute) Bladder neck stricture (Acute) Nocturia more than twice per night (Acute) Critical illness myopathy (Acute) Dysphagia (Acute) Pressure ulcer (Acute) Aspiration pneumonitis (Acute) Hypernatremia (Acute) Pneumonia due to COVID-19 virus (Acute) COVID-19 (Acute) Weakness (Acute) BPH w urinary obs/LUTS (Acute) Complicated urinary tract infection (Acute) Past Medical History Medical History (Updated 10/26/22 @ 07:26 by Rosaura Ferrari RN) BPH w urinary obs/LUTS Complicated urinary tract infection GERD (gastroesophageal reflux disease) HTN (hypertension) Family History Family History Father Cancer Mother CVD (cardiovascular disease) Surgical History Surgical History History of cystoscopy History of surgery Social History Social History Household Members: Family Housing: Unknown / Unable to assess Do you presently have visiting nurse or other home services: No Patient Tobacco Use Status: Never used Tobacco Use of substances other than those prescribed or required for medical reasons: No Are you DNR?: No Advance Directives: No Advance Directives Information Provided: Yes service: Yes Current occupational status: retired [employer] Allergies Allergy/AdvReac Type Severity Reaction Status Date / Time No Known Allergies Allergy Verified 10/26/22 07:22 [No Known Allergies*] Home Medications Medication Instructions Recorded Confirmed Last Taken Type dorzolamide 22.3 mg-timolol 6.8 1 drp ophthalmic (eye) BID 10/29/20 10/26/22 Unknown History mg/mL eye drops irbesartan 150 2 tab PO DAILY 08/26/22 10/26/22 Unknown History mg-hydrochlorothiazide 12.5 mg tablet tadalafil 10 mg tablet 10 mg PO DAILY PRN Erectile 10/26/22 10/26/22 Unknown History Dysfunction Exam Exam Date and Time: October 23, 2022 1007 Assessment and Plan Assessment Anesthesia Assessment: Chart Reviewed Documented by User: Martha Dotson MD 10/26/22 09:59 PMFSH Past Medical History Medical History (Updated 10/26/22 @ 07:26 by Rosaura Ferrari RN) BPH w urinary obs/LUTS Complicated urinary tract infection GERD (gastroesophageal reflux disease) HTN (hypertension) Family History Family History Father Cancer Mother CVD (cardiovascular disease) Family history of problems with anesthesia: No Surgical History Surgical History History of cystoscopy History of surgery History of Problems with Anesthesia: No Social History Social History Household Members: Family Housing: Unknown / Unable to assess Do you presently have visiting nurse or other home services: No Patient Tobacco Use Status: Never used Tobacco Use of substances other than those prescribed or required for medical reasons: No Are you DNR?: No Advance Directives: No Advance Directives Information Provided: Yes service: Yes Current occupational status: retired Meds Allergies Allergy/AdvReac Type Severity Reaction Status Date / Time No Known Allergies Allergy Verified 10/26/22 07:22 [No Known Allergies*] Home Medications Medication Instructions Recorded Confirmed Last Taken Type dorzolamide 22.3 mg-timolol 6.8 1 drp ophthalmic (eye) BID 10/29/20 10/26/22 Unknown History mg/mL eye drops irbesartan 150 2 tab PO DAILY 08/26/22 10/26/22 Unknown History mg-hydrochlorothiazide 12.5 mg tablet tadalafil 10 mg tablet 10 mg PO DAILY PRN Erectile 10/26/22 10/26/22 Unknown History Dysfunction Assessment and Plan Final Anesthetic Review Family History of Problems with Anesthesia: No History of Problems with Anesthesia: No NPO: Yes ASA Class: III Final Preanesthetic Review: No Changes in Pt Med Stat, Meds/Allgs Chart Reviewed, Consent Obtained/Reviewed and Anes Risks/Benef Reviewed Patient Risk: Low Procedure Risk: Low Anesthetic Plan Anesthetic Plan: GA Disposition: Standard PACU
[2022-10-26 07:30] VITALS: BMI 34.8
[2022-10-26 07:31] LABS: Hematocrit 40.6 % (42.0-52.0); Hemoglobin 12.8 g/dl (14.0-18.0); Mean Corpuscular HGB Conc 31.5 g/dl (31.0-36.0); Mean Corpuscular Hemoglobin 25.4 pg (27.0-33.0); Mean Corpuscular Volume 80.6 fL (80.0-98.0); Mean Platelet Volume 9.8 fL (9.4-12.4); Platelet Count 166 X10*3/uL (160-400); Red Blood Count 5.04 X10*6/uL (4.60-5.80); Red Cell Distribution Width 16.3 % (11.0-16.0); White Blood Count 10.4 X10*3/uL (4.8-10.8)
[2022-10-26 07:35] VITALS: BP 141/62; PULSE 68; RESP 16; TEMP 36.5; O2SAT 98
[2022-10-26] MEDS: Lactated Ringers 1,000 ML 100 ML IVCONT (07:52)
--- NOTE | 2022-10-26 07:55 | MHC.SHP ---
Pre-Procedural Eval Section A Date of Service: 10/26/22 The patient is an INPATIENT: No Changes since office visit: No Cold of Flu in the past 2 weeks, No New Medical Problems, No Changes in Medication and No Patient answered all questions The History & Physical has been completed within 30 days and I have reviewed it.: No Section B Chief Complaint: Bladder-neck obstruction Details of Present Illness: bladder neck stricture Relevant Social History: None Present Medications: see Short Stay Collaborative assessment Medical History: No relevant PMH History of Previous Operations: Relevant previous surgery/procedure and date(s) Allergies: Allergies Allergy/AdvReac Type Severity Reaction Status Date / Time No Known Allergies Allergy Verified 10/26/22 07:22 [No Known Allergies*] Review of Systems Sugical H&P ROS: Negative: Constitution, Cardiovascular, Respiratory, Neurological, Psychiatric, Hem-Onc, Allergic/Immunologic, Gastrointestinal, Genitourinary, Musculoskeletal, Integumentary, Endocrine and Eyes/Ears/Nose/Throat Exam Surgical H&P Exam: Normal: HEENT, Normal: Heart, Normal: Lungs, Normal: Extremities, Normal: Abdomen, Normal: Skin and Normal: Neurological Plan Diagnosis/Plan: Unchanged (bladder neck stricture) I have reviewed the history and physical and performed a pertinent physical examination on my patient. No changes have occurred unless specified. Time Spent With Patient Time: Total time managing care of this patient today ____ minutes.
[2022-10-26 08:02] LABS: Anion Gap 10 (12-20); Blood Urea Nitrogen 25 mg/dL (9-16); Calcium 9.5 mg/dL (8.4-10.2); Carbon Dioxide 28 mmol/L (22-29); Chloride 107 mmol/L (96-108); Creatinine Clr Calc Pharmacy 52.4; Estimated Glomerular Filt Rate 45; Potassium 4.1 mmol/L (3.3-5.1); Sodium 141 mmol/L (135-145)
[2022-10-26 10:15] VITALS: BP 140/71; PULSE 69; RESP 17; TEMP 36.8; O2SAT 98
[2022-10-26 10:20] VITALS: BP 148/73; PULSE 64; RESP 17; O2SAT 98
[2022-10-26 10:25] VITALS: BP 146/83; PULSE 69; RESP 16; O2SAT 95
[2022-10-26 10:30] VITALS: BP 157/89; PULSE 66; RESP 16; O2SAT 97
[2022-10-26 10:45] VITALS: BP 149/84; PULSE 62; RESP 17; TEMP 36.8; O2SAT 97
[2022-10-26 12:01] LABS: Glucose Fasting 120 mg/dL (60-99)
--- NOTE | 2022-11-05 14:01 | P.OP_ITS ---
Operative Note Operative Note Date of Service: 10/26/22 Narrative: PreOperative Diagnosis: Bladder neck stricture Post Operative Diagnosis: Bladder neck stricture Procedure: Dilation under anesthesia of vesicourethral stricture Surgeon: Dr Vinay Lr Anesthesia: Indications for procedure: Stricture at bladder neck junction. Inability to empty bladder. Using Montanez catheter Procedure: After informed consent was verified the patient was brought to the operating room and placed in a supine position. Anesthesia was administered per protocol. The patient was prepped and draped in a sterile fashion. Safety pause time-out was performed. Antibiotics being given. Patient placed in modified dorsal lithotomy position Initial approach using a 22 Montserratian cystoscope Dense stricture seen at bladder neck junction. Decision made not to formally make an incision in the bladder neck. This was secondary to concerns regarding continence. Stricture dilated using 22 Montserratian cystoscope 22 Montserratian Montanez catheter placed Patient tolerated procedure well Will return for removal in 3-4 days Pathology: none Drains: Montanez catheter
== END 2022-10-26 11:33 | disposition home or self-care (01) ==
PROVIDERS: Nurse Practitioner; PCP Nurse Practitioner Family; Visit Provider Urology
PROC: 0T9C8ZZ Drainage of Bladder Neck, Via Natural or Artificial Opening Endoscopic (ICD-10-PCS; CPT 52281; principal; 2022-10-26 08:30)
DX: N40.1 Benign prostatic hyperplasia with lower urinary tract symptoms (principal); N13.8 Other obstructive and reflux uropathy; R31.0 Gross hematuria
CPT/HCPCS: 52281; 36415; 80048; 85027; C1769; J1100; J1885; J1956; J2405; J3010

== ENCOUNTER → 2022-10-29 10:03 | Outpatient (BNVA) | payer MEDICARE, SELFPAY | PROVIDERS: PCP Nurse Practitioner Family; Visit Provider Urology ==

== ENCOUNTER → 2022-12-11 11:01 | Outpatient (BNVA) | payer MEDICARE, SELFPAY | PROVIDERS: PCP Nurse Practitioner Family; Visit Provider Urology | DX: N32.0 Bladder-neck obstruction (principal); N52.01 Erectile dysfunction due to arterial insufficiency | CPT/HCPCS: 99212 ==

== ENCOUNTER 2023-01-06 11:45 | Outpatient (REF) | payer MEDICARE, SELFPAY ==
[2023-01-06 13:22] LABS: Appearance Urine Clear; Color Urine Yellow; Glucose Urine UA Negative (Negative); Leukocyte Esterase Urine Negative (Negative); Nitrite Urine Positive (Negative); PH 5.5 (5.0-9.0); UMIC TRIGGER UA YES; Urine Blood Negative (Negative); Urine Ketones Negative (Negative); Urine Protein Negative (Neg-Trace)
[2023-01-06 13:27] LABS: Bacteria Urine Trace (None Seen); Hyaline Casts Urine 0-2 /LPF (0-2); RBC Urine 0-2 /HPF (0-2); Squamous Epithelial Cell Urine 0-2 /HPF (0-2); WBC Urine 0-5 /HPF (0-5)
== END 2023-01-06 11:46 | disposition home or self-care (01) ==
LOC: HO.HMGCLDS 11:45
PROVIDERS: PCP Nurse Practitioner Family; Visit Provider Urology
DX: N40.1 Benign prostatic hyperplasia with lower urinary tract symptoms (principal); N13.8 Other obstructive and reflux uropathy
CPT/HCPCS: 81001; 87086

== ENCOUNTER 2023-06-09 10:41 | Outpatient (REF) | payer MEDICARE, SELFPAY ==
[2023-06-09 13:24] LABS: Appearance Urine Clear; Color Urine Yellow; Glucose Urine UA Negative (Negative); Leukocyte Esterase Urine Trace (Negative); Nitrite Urine Positive (Negative); PH 5.5 (5.0-9.0); UMIC TRIGGER UA YES; Urine Blood Negative (Negative); Urine Ketones Negative (Negative); Urine Protein Negative (Neg-Trace)
[2023-06-09 13:45] LABS: Bacteria Urine None Seen (None Seen); Hyaline Casts Urine 0-2 /LPF (0-2); RBC Urine 0-2 /HPF (0-2); Squamous Epithelial Cell Urine 0-2 /HPF (0-2)
== END 2023-06-09 10:42 | disposition home or self-care (01) ==
LOC: HO.HMGCLDS 10:41
PROVIDERS: PCP Nurse Practitioner Family; Visit Provider Urology
DX: N39.0 Urinary tract infection, site not specified (principal)
CPT/HCPCS: 81001; 87086

== ENCOUNTER 2023-07-22 14:05 | Outpatient (REF) | payer MEDICARE, SELFPAY ==
[2023-07-22 16:38] LABS: Appearance Urine Clear; Color Urine Yellow; Glucose Urine UA Negative (Negative); Leukocyte Esterase Urine Negative (Negative); Nitrite Urine Positive (Negative); UMIC TRIGGER UA YES; Urine Blood Negative (Negative); Urine Ketones Negative (Negative); Urine Protein Negative (Neg-Trace)
[2023-07-22 16:47] LABS: Bacteria Urine None Seen (None Seen); Hyaline Casts Urine 0-2 /LPF (0-2); RBC Urine 0-2 /HPF (0-2); Squamous Epithelial Cell Urine 0-2 /HPF (0-2); WBC Urine 0-5 /HPF (0-5)
[2023-07-22 17:03] LABS: PSA,Total (Free>4and<10) 3.53 ng/mL (0.00-4.00)
== END 2023-07-22 14:06 | disposition home or self-care (01) ==
LOC: HO.HMGCLDS 14:05
PROVIDERS: Visit Provider Urology
DX: Z12.5 Encounter for screening for malignant neoplasm of prostate (principal); R31.29 Other microscopic hematuria; N39.0 Urinary tract infection, site not specified; R97.20 Elevated prostate specific antigen [PSA]
CPT/HCPCS: 36415; 81001; 84153; 87086

== ENCOUNTER 2023-07-27 11:30 | Outpatient (AMB) | payer MEDICARE, SELFPAY ==
--- NOTE | 2023-07-27 11:43 | A.OFFVIS_ITS ---
Intake Intake Visit Reasons: PVR/PSA(set) Intake Note: Patient Is Present for PSA/PVR Follow Up. Recent PSA: 07/22/23- 3.53 Urology Med: Sildenafil, Oxybutynin, Tamsulosin, Tadalafil Antibiotic Allergy: None Blood Thinner: None PVR: 210ml Administrative Resident Required: No Accompanied by: Self / Same As Patient Allergies No Known Allergies [No Known Allergies*] Allergy (Verified 12/11/22 11:13) Medication List - Last Reconciled 07/27/23 by Vinay Lr MD dorzolamide-timolol 22.3-6.8 mg/mL 1 drp ophthalmic (eye) BID irbesartan-hydrochlorothiazide 150-12.5 mg 2 tabs PO DAILY omeprazole 20 mg PO DAILY@0630 sulfamethoxazole-trimethoprim 800-160 mg (Bactrim DS) 1 tab PO BID 7 days tadalafil 10 mg PO DAILY 90 days tamsulosin 0.4 mg PO DAILY 90 days HPI HPI Comments History of Present Illness Details Aaron is a pleasant male. He is a patient of Dr Crawford. That he is seen for the following urologic conditions - lower urinary tract symptoms - nocturia - erectile dysfunction - renal cyst Six-month follow-up Recurrent UTI in past 3 months Will stop oxybutynin 2 month follow-up Lower urinary tract symptoms Prior use medications Prior procedure - laser prostatectomy March 2019 - revision 11/17 Prior therapy - oxybutynin 15 mg, Myrbetriq 25 mg could not afford PSA - 08/16 1.8 - 10/16 3.9 Erectile dysfunction Prefers 10 mg daily Cialis Prior sildenafil with headache Renal cyst Stable on prior ultrasound [facility] Medical History BPH w urinary obs/LUTS Complicated urinary tract infection GERD (gastroesophageal reflux disease) HTN (hypertension) Surgical History History of cystoscopy History of surgery Family History Father Cancer Mother CVD (cardiovascular disease) Social History Household Members: Family Housing: Unknown / Unable to assess Do you presently have visiting nurse or other home services: No Comment: pt rings appropriately Patient Tobacco Use Status: Never used Tobacco service: Yes Current occupational status: retired Review of Systems Const Denies chills and Denies fever(s) Card Reports no additional complaints and Denies syncope Resp Denies cough GI Denies abdominal pain and Denies heartburn Reports as per HPI and Denies change in libido Neuro Denies syncope Psych Denies change in libido Endo Denies change in libido Physical Exam Const General: cooperative, healthy appearing, comfortable and no acute distress Orientation/consciousness: patient oriented x3 HEENT Face and sinus: Yes normal facial exam Mouth: moist mucous membranes Neck Neck: Yes normal visual inspection, Yes full ROM and Yes trachea midline Chest Chest palpation & inspection: normal inspection of the chest Resp Effort & Inspection: normal respiratory effort, able to speak in complete sentences and no respiratory distress GI Inspection: Yes normal to inspection Back/Spine/Pelvis Cervical Spine: normal cervical lordosis Thoracic/Lumbar Spine: thoracic and lumbar spine normal to inspection Skin General skin exam: no rashes or lesions noted Neuro General: patient oriented x3, gait normal, tone normal and moves all extremities Extrem General: Yes normal to inspection and Yes capillary refill normal Office Procedures Post Void Residual Post Residual Void Post Void Residual (PVR): 210 [id number] Void Residual by ultrasound Results AMB Urinalysis, Automated 2 UA Leukoctes 0 Yi/uL Last Edit by CHIOMA Lea on 07/27/23 11:58 UA Nitrite Negative Last Edit by CHIOMA Lea on 07/27/23 11:58 UA Urobilinogen 0.2 mg/dL Last Edit by CHIOMA Lea on 07/27/23 11:5 8 UA Protein 0 mg/dL Last Edit by CHIOMA Lea on 07/27/23 11:58 UA pH 6.0 Last Edit by CHIOMA Lea on 07/27/23 11:58 UA Blood 10 Oseas/uL Last Edit by CHIOMA Lea on 07/27/23 11:58 UA Specific [place] 1.015 Last Edit by CHIOMA Lea on 07/27/23 11: 58 UA Ketone Negative Last Edit by CHIOMA Lea on 07/27/23 11:58 UA Bilirubin 0 mg/dL Last Edit by CHIOMA Lea on 07/27/23 11:58 UA Glucose 0 mg/dL Last Edit by CHIOMA Lea on 07/27/23 11:58 Results Reviewed Results Reviewed: Laboratory Last Values Urine pH (Auto) 6.0 07/27/23 11:57 Specific [place] (Auto) 1.015 07/27/23 11:57 Urine Protein (Auto) 0 mg/dL 07/27/23 11:57 Glucose (UA)(Auto) 0 mg/dL 07/27/23 11:57 Urine Ketones (Auto) Negative 07/27/23 11:57 Urine Blood (Auto) 10 Oseas/uL 07/27/23 11:57 Urine Nitrite (Auto) Negative 07/27/23 11:57 Urine Bilirubin (Auto) 0 mg/dL 07/27/23 11:57 Urine Urobilinogen (Auto) 0.2 mg/dL 07/27/23 11:57 Leukocyte Esterase (Auto) 0 Yi/uL 07/27/23 11:57 Assessment & Plan Assessment & Plan (1) BPH w urinary obs/LUTS: Comment: Laser prostatectomy March 2019 Code(s): N40.1 - Benign prostatic hyperplasia with lower urinary tract symptoms; N13.8 - Other obstructive and reflux uropathy (2) Complicated urinary tract infection: Code(s): N39.0 - Urinary tract infection, site not specified (3) Urinary urgency: Code(s): R39.15 - Urgency of urination Plan Two month follow-up tele Orders: Orders AMB Urinalysis Automated 07/27/23 Z13.9 - Encounter for screening, unspecified AMB Post Void Residual by ultrasound 07/27/23 N39.8 - Other specified disorders of urinary system Medications: Discontinued oxybutynin chloride ER Discontinued Reason: Doctor's Order 15 mg PO DAILY 90 tabs 3RF Patient Instructions: Imaging studies, laboratory and physical exam results were discussed and reviewed in detail. No major barriers to patient understanding were identified. An opportunity to ask questions regarding the treatment plan was provided. All questions were answered. The patient expressed understanding and agreement with the above treatment plan. The patient is aware they should contact our office by phone for worsening of their current condition or the appearance of new urologic symptoms. Compliance is encouraged with any medications and followup testing that is ordered. It is a privilege to participate in the urologic care of your patient. If you have any questions or concerns regarding treatment for the above conditions, or other urologic issues, please do not hesitate to contact me. The office telephone contact is [phone]. This note is constructed using voice recognition software. While every effort has been made to ensure accuracy engagement liaison errors may have been included. Yours sincerely, Dr Vinay Lr MD, [facility] - Urology Providers of Expert, Compassionate Care for the Genitourinary System Coding Level of Care Code Est Pt Level 4 (18906) Diagnoses BPH w urinary obs/LUTS N40.1; N13.8 Complicated urinary tract infection N39.0 Urinary urgency R39.15 CPT Codes Post Residual Void - PVR CPT Code: 94979-Wvev Void Residual by ultrasound ([id number])
== END 2023-07-27 12:24 | disposition home or self-care (01) ==
PROVIDERS: PCP Nurse Practitioner Family; Visit Provider Urology
DX: N40.1 Benign prostatic hyperplasia with lower urinary tract symptoms (principal); N13.8 Other obstructive and reflux uropathy; N39.0 Urinary tract infection, site not specified; R39.15 Urgency of urination
CPT/HCPCS: 99214

== ENCOUNTER → 2023-07-27 11:30 | Outpatient (BNVA) | payer MEDICARE, SELFPAY | PROVIDERS: PCP Nurse Practitioner Family; Visit Provider Urology | DX: N40.1 Benign prostatic hyperplasia with lower urinary tract symptoms (principal); N13.8 Other obstructive and reflux uropathy; R39.15 Urgency of urination; N39.0 Urinary tract infection, site not specified | CPT/HCPCS: 51798; 81003; 99212 ==

== ENCOUNTER 2023-09-21 11:11 | Outpatient (AMB) | payer MEDICARE, SELFPAY ==
--- NOTE | 2023-09-21 11:27 | MHC.OFFVIS ---
Intake Intake Visit Reasons: 2M Follow Up(d/c Oxybutynin)Portal Confirm Intake Note: Patient is Present for Follow Up Urology Medication: Tadalafil, Tamsulosin Antibiotic Allergies:None Blood Thinners: None PVR: 0 Allergies No Known Allergies [No Known Allergies*] Allergy (Verified 09/21/23 11:28) Medication List - Last Reconciled 09/21/23 by Vinay Lr MD amlodipine 5 mg PO DAILY atorvastatin 10 mg PO DAILY dorzolamide-timolol 22.3-6.8 mg/mL 1 drp ophthalmic (eye) BID irbesartan-hydrochlorothiazide 150-12.5 mg 2 tabs PO DAILY omeprazole 20 mg PO DAILY@0630 tadalafil 10 mg PO DAILY 90 days tamsulosin 0.4 mg PO BID 90 days HPI HPI Comments History of Present Illness Details Aaron is a pleasant male. He is a patient of Dr Crawford. That he is seen for the following urologic conditions - lower urinary tract symptoms - nocturia - erectile dysfunction - renal cyst Two month follow-up after recurrent UTI and oxybutynin stopped PVR 0 cc Six-month follow-up Happy with current urination Would like to continue with tadalafil Lower urinary tract symptoms Prior use medications Prior procedure - laser prostatectomy March 2019 - revision 11/17 Prior therapy - oxybutynin 15 mg, Myrbetriq 25 mg could not afford PSA - 08/16 1.8 - 10/16 3.9 Erectile dysfunction Prefers 10 mg daily Cialis Prior sildenafil with headache Renal cyst Stable on prior ultrasound [facility] Medical History GERD (gastroesophageal reflux disease) HTN (hypertension) Complicated urinary tract infection BPH w urinary obs/LUTS Surgical History History of cystoscopy History of surgery Family History Father Cancer Mother CVD (cardiovascular disease) Social History Household Members: Family Housing: Unknown / Unable to assess Do you presently have visiting nurse or other home services: No Comment: pt rings appropriately Patient Tobacco Use Status: Never used Tobacco service: Yes Current occupational status: retired Review of Systems Const Denies chills and Denies fever(s) Card Reports no additional complaints and Denies syncope Resp Denies cough GI Denies abdominal pain and Denies heartburn Reports as per HPI and Denies change in libido Neuro Denies syncope Psych Denies change in libido Endo Denies change in libido Physical Exam Const General: cooperative, healthy appearing, comfortable and no acute distress Orientation/consciousness: patient oriented x3 HEENT Face and sinus: Yes normal facial exam Mouth: moist mucous membranes Neck Neck: Yes normal visual inspection, Yes full ROM and Yes trachea midline Chest Chest palpation & inspection: normal inspection of the chest Resp Effort & Inspection: normal respiratory effort, able to speak in complete sentences and no respiratory distress GI Inspection: Yes normal to inspection Back/Spine/Pelvis Cervical Spine: normal cervical lordosis Thoracic/Lumbar Spine: thoracic and lumbar spine normal to inspection Skin General skin exam: no rashes or lesions noted Neuro General: patient oriented x3, gait normal, tone normal and moves all extremities Extrem General: Yes normal to inspection and Yes capillary refill normal Office Procedures Post Void Residual Post Residual Void Post Void Residual (PVR): 0 [id number] Void Residual by ultrasound Results AMB Urinalysis, Automated UA Leukoctes 0 Yi/uL Last Edit by CHIOMA Graff on 09/21/23 11:37 UA Nitrite Negative Last Edit by CHIOMA Graff on 09/21/23 11:37 UA Urobilinogen 0.2 mg/dL Last Edit by CHIOMA Graff on 09/21/23 11:37 UA Protein 0 mg/dL Last Edit by CHIOMA Graff on 09/21/23 11:37 UA pH 5.5 Last Edit by Jinny Rush Jesse on 09/21/23 11:37 UA Blood 0 Oseas/uL Last Edit by CHIOMA Graff on 09/21/23 11:37 UA Specific [place] 1.015 Last Edit by DONAVON Graff on 09/21/23 11:37 UA Ketone Negative Last Edit by CHIOMA Graff on 09/21/23 11:37 UA Bilirubin 0 mg/dL Last Edit by CHIOMA Graff on 09/21/23 11:37 UA Glucose 0 mg/dL Last Edit by CHIOMA Graff on 09/21/23 11:37 Results Reviewed Results Reviewed: Laboratory Last Values Urine pH (Auto) 5.5 09/21/23 11:29 Specific [place] (Auto) 1.015 09/21/23 11:29 Urine Protein (Auto) 0 mg/dL 09/21/23 11:29 Glucose (UA)(Auto) 0 mg/dL 09/21/23 11:29 Urine Ketones (Auto) Negative 09/21/23 11:29 Urine Blood (Auto) 0 Oseas/uL 09/21/23 11:29 Urine Nitrite (Auto) Negative 09/21/23 11:29 Urine Bilirubin (Auto) 0 mg/dL 09/21/23 11:29 Urine Urobilinogen (Auto) 0.2 mg/dL 09/21/23 11:29 Leukocyte Esterase (Auto) 0 Yi/uL 09/21/23 11:29 Assessment & Plan Assessment & Plan (1) Urinary urgency: Code(s): R39.15 - Urgency of urination (2) Elevated PSA: Code(s): R97.20 - Elevated prostate specific antigen [PSA] (3) Erectile dysfunction due to arterial insufficiency: Code(s): N52.01 - Erectile dysfunction due to arterial insufficiency (4) BPH w urinary obs/LUTS: Comment: Laser prostatectomy March 2019 Code(s): N40.1 - Benign prostatic hyperplasia with lower urinary tract symptoms; N13.8 - Other obstructive and reflux uropathy Plan Continue current medications Orders: Orders AMB Urinalysis Automated Today Z13.9 - Encounter for screening, unspecified AMB Post Void Residual by ultrasound Today N13.8 - Other obstructive and reflux uropathy, N40.1 - Benign prostatic hyperplasia with lower urinary tract symptoms Patient Instructions: Imaging studies, laboratory and physical exam results were discussed and reviewed in detail. No major barriers to patient understanding were identified. An opportunity to ask questions regarding the treatment plan was provided. All questions were answered. The patient expressed understanding and agreement with the above treatment plan. The patient is aware they should contact our office by phone for worsening of their current condition or the appearance of new urologic symptoms. Compliance is encouraged with any medications and followup testing that is ordered. It is a privilege to participate in the urologic care of your patient. If you have any questions or concerns regarding treatment for the above conditions, or other urologic issues, please do not hesitate to contact me. The office telephone contact is [phone]. This note is constructed using voice recognition software. While every effort has been made to ensure accuracy waiter/waitress informal errors may have been included. Yours sincerely, Dr Vinay Lr MD, [facility] - Urology Providers of Expert, Compassionate Care for the Genitourinary System Coding Level of Care Code Est Pt Level 3 (76604) Diagnoses Urinary urgency R39.15 Elevated PSA R97.20 Erectile dysfunction due to arterial insufficiency N52.01 BPH w urinary obs/LUTS N40.1; N13.8 CPT Codes Post Residual Void - PVR CPT Code: 58242-Rcos Void Residual by ultrasound ([id number])
== END 2023-09-21 11:51 | disposition home or self-care (01) ==
PROVIDERS: PCP Nurse Practitioner Family; Visit Provider Urology
DX: N40.1 Benign prostatic hyperplasia with lower urinary tract symptoms (principal); R39.15 Urgency of urination; R97.20 Elevated prostate specific antigen [PSA]; N52.01 Erectile dysfunction due to arterial insufficiency; N13.8 Other obstructive and reflux uropathy; Z13.9 Encounter for screening, unspecified
CPT/HCPCS: 99213

== ENCOUNTER → 2023-09-21 11:11 | Outpatient (BNVA) | payer MEDICARE, SELFPAY | PROVIDERS: PCP Nurse Practitioner Family; Visit Provider Urology | DX: N40.1 Benign prostatic hyperplasia with lower urinary tract symptoms (principal); N13.8 Other obstructive and reflux uropathy; N52.9 Male erectile dysfunction, unspecified; R39.15 Urgency of urination; R97.20 Elevated prostate specific antigen [PSA]; N52.01 Erectile dysfunction due to arterial insufficiency | CPT/HCPCS: 51798; 81003; 99212 ==

== ENCOUNTER 2023-11-08 15:18 | Outpatient (REF) | payer MEDICARE, SELFPAY ==
[2023-11-08 16:11] LABS: Appearance Urine Clear; Color Urine Yellow; Glucose Urine UA Negative (Negative); Leukocyte Esterase Urine Trace (Negative); Nitrite Urine Negative (Negative); UMIC TRIGGER UA YES; Urine Blood Negative (Negative); Urine Ketones Negative (Negative); Urine Protein Negative (Neg-Trace)
[2023-11-08 16:14] LABS: Bacteria Urine None Seen (None Seen); Hyaline Casts Urine 0-2 /LPF (0-2); RBC Urine 0-2 /HPF (0-2); Squamous Epithelial Cell Urine 0-2 /HPF (0-2); WBC Urine 0-5 /HPF (0-5)
== END 2023-11-08 15:19 | disposition home or self-care (01) ==
LOC: HO.HMGCLDS 15:18
PROVIDERS: PCP Nurse Practitioner Family; Visit Provider Urology
DX: N40.1 Benign prostatic hyperplasia with lower urinary tract symptoms (principal); N13.8 Other obstructive and reflux uropathy
CPT/HCPCS: 81001; 87086

== ENCOUNTER 2023-12-08 15:19 | Outpatient (REF) | payer MEDICARE, SELFPAY ==
[2023-12-08 16:08] LABS: Appearance Urine Clear; Color Urine Yellow; Glucose Urine UA Negative (Negative); Leukocyte Esterase Urine Small (1+) (Negative); Nitrite Urine Positive (Negative); Specific Gravity - Urine 1.015 (1.005-1.025); UMIC TRIGGER UA YES; Urine Blood Trace (Negative); Urine Ketones Negative (Negative); Urine Protein Negative (Neg-Trace)
[2023-12-08 16:18] LABS: Bacteria Urine None Seen (None Seen); Hyaline Casts Urine 0-2 /LPF (0-2); RBC Urine 0-2 /HPF (0-2); Squamous Epithelial Cell Urine 0-2 /HPF (0-2)
== END 2023-12-08 15:20 | disposition home or self-care (01) ==
LOC: HO.HMGCLDS 15:19
PROVIDERS: Visit Provider Urology
DX: R39.15 Urgency of urination (principal); N39.0 Urinary tract infection, site not specified
CPT/HCPCS: 81001; 87086

== ENCOUNTER 2024-02-22 14:52 | Outpatient (REF) | payer MEDICARE, SELFPAY ==
[2024-02-22 16:24] LABS: Appearance Urine Clear; Color Urine Yellow; Glucose Urine UA Negative (Negative); Leukocyte Esterase Urine Trace (Negative); Nitrite Urine Positive (Negative); PH 6.5 (5.0-9.0); Specific Gravity - Urine 1.015 (1.005-1.025); UMIC TRIGGER UA YES; Urine Blood Negative (Negative); Urine Ketones Negative (Negative); Urine Protein Negative (Neg-Trace)
[2024-02-22 16:36] LABS: Bacteria Urine None Seen (None Seen); Hyaline Casts Urine 0-2 /LPF (0-2); RBC Urine 0-2 /HPF (0-2); Squamous Epithelial Cell Urine 0-2 /HPF (0-2); WBC Urine 0-5 /HPF (0-5)
== END 2024-02-22 14:53 | disposition home or self-care (01) ==
LOC: HO.HMGCLDS 14:52
PROVIDERS: PCP Nurse Practitioner Family; Visit Provider Urology
DX: R39.15 Urgency of urination (principal); R35.1 Nocturia; N40.1 Benign prostatic hyperplasia with lower urinary tract symptoms; N13.8 Other obstructive and reflux uropathy; N39.0 Urinary tract infection, site not specified
CPT/HCPCS: 81001; 87086

== ENCOUNTER 2024-03-18 11:35 | Outpatient (REF) | payer MEDICARE, SELFPAY ==
[2024-03-18 13:11] LABS: Appearance Urine Clear; Color Urine Yellow; Glucose Urine UA Negative (Negative); Leukocyte Esterase Urine Negative (Negative); Nitrite Urine Positive (Negative); UMIC TRIGGER UA YES; Urine Blood Negative (Negative); Urine Ketones Negative (Negative); Urine Protein Negative (Neg-Trace)
[2024-03-18 13:22] LABS: Bacteria Urine Trace (None Seen); Hyaline Casts Urine 0-2 /LPF (0-2); RBC Urine 0-2 /HPF (0-2); Squamous Epithelial Cell Urine 0-2 /HPF (0-2); WBC Urine 0-5 /HPF (0-5)
== END 2024-03-18 11:36 | disposition home or self-care (01) ==
LOC: HO.HMGCLDS 11:35
PROVIDERS: PCP Nurse Practitioner Family; Visit Provider Urology
DX: R39.15 Urgency of urination (principal); R35.1 Nocturia; N32.0 Bladder-neck obstruction; N40.1 Benign prostatic hyperplasia with lower urinary tract symptoms; N13.8 Other obstructive and reflux uropathy; N39.0 Urinary tract infection, site not specified
CPT/HCPCS: 81001; 87086

== ENCOUNTER 2024-03-24 11:26 | Outpatient (AMB) | payer MEDICARE, SELFPAY ==
--- NOTE | 2024-03-24 11:29 | MHC.OFFVIS ---
Intake Visit Reasons: 6M Follow Up-PVR/Med Review Intake Note: Patient is Present for 6m Follow Up/pvr/med review Urology Medication: Tadalafil, Tamsulosin Antibiotic Allergies:None Blood Thinners: None PVR: 0 today's pvr: Block Breaker Operator Required: No Allergies No Known Allergies [No Known Allergies*] Allergy (Verified 03/24/24 11:33) HPI Comments Details: Aaron is a pleasant male. He is a patient of Dr Crawford. That he is seen for the following urologic conditions - lower urinary tract symptoms - nocturia - erectile dysfunction - renal cyst Six-month follow-up Bladder empty Had recurrent UTI in 07/17/2023 - last urinary culture negative Had adverse reaction to Levaquin with diarrhea Would like to try methenamine vitamin-C for suppression Tamsulosin and tadalafil refilled Lower urinary tract symptoms Prior use medications - with tamsulosin Prior procedure - laser prostatectomy March 2019 - revision 11/17 Prior therapy - oxybutynin 15 mg, Myrbetriq 25 mg could not afford PSA - 08/16 1.8 - 10/16 3.9, 07/21 3.5 Erectile dysfunction Prefers 10 mg daily Cialis Prior sildenafil with headache Renal cyst Stable on prior ultrasound PFSH Medical History GERD (gastroesophageal reflux disease) HTN (hypertension) Complicated urinary tract infection BPH w urinary obs/LUTS Surgical History History of cystoscopy History of surgery Family History Father Cancer Mother CVD (cardiovascular disease) Social History Household Members: Family Housing: Unknown / Unable to assess Do you presently have visiting nurse or other home services: No Comment: pt rings appropriately Patient Tobacco Use Status: Never used Tobacco service: Yes Current occupational status: retired Review of Systems Const Denies chills and Denies fever(s) Card Reports no additional complaints and Denies syncope Resp Denies cough GI Denies abdominal pain and Denies heartburn Reports as per HPI and Denies change in libido Neuro Denies syncope Psych Denies change in libido Endo Denies change in libido Physical Exam Const General: cooperative, healthy appearing, comfortable and no acute distress Orientation/consciousness: patient oriented x3 HEENT Face and sinus: Yes normal facial exam Mouth: moist mucous membranes Neck Neck: Yes normal visual inspection, Yes full ROM and Yes trachea midline Chest Chest palpation & inspection: normal inspection of the chest Resp Effort & Inspection: normal respiratory effort, able to speak in complete sentences and no respiratory distress GI Inspection: Yes normal to inspection Back/Spine/Pelvis Cervical Spine: normal cervical lordosis Thoracic/Lumbar Spine: thoracic and lumbar spine normal to inspection Skin General skin exam: no rashes or lesions noted Neuro General: patient oriented x3, gait normal, tone normal and moves all extremities Extrem General: Yes normal to inspection and Yes capillary refill normal Results AMB Urinalysis, Automated UA Leukoctes 15 Yi/uL Last Edit by Case Blanco CCM on 03/24/24 11:43 UA Nitrite Negative Last Edit by Case Blanco [facility] on 03/24/24 11:43 UA Urobilinogen 0.2 mg/dL Last Edit by Case Blanco CCM on 03/24/24 11:43 UA Protein 15 mg/dL Last Edit by Case Blanco CCM on 03/24/24 11:43 UA pH 6.5 Last Edit by Case Blanco [facility] on 03/24/24 11:43 UA Blood 10 Oseas/uL Last Edit by Case Blanco CCM on 03/24/24 11:43 UA Specific [place] 1.015 Last Edit by Case Blanco CCM on 03/24/24 11:43 UA Ketone Negative Last Edit by Case Blanco [facility] on 03/24/24 11:43 UA Bilirubin 0 mg/dL Last Edit by Case Blanco CCM on 03/24/24 11:43 UA Glucose 0 mg/dL Last Edit by Case Blanco [facility] on 03/24/24 11:43 Assessment & Plan Assessment & Plan (1) Urinary urgency: Code(s): R39.15 - Urgency of urination Category: Medical (2) Bladder neck stricture: Code(s): N32.0 - Bladder-neck obstruction Category: Medical (3) BPH w urinary obs/LUTS: Comment: Laser prostatectomy March 2019 Code(s): N40.1 - Benign prostatic hyperplasia with lower urinary tract symptoms; N13.8 - Other obstructive and reflux uropathy Category: Medical Plan Six-month follow-up PVR and UA Orders: Orders AMB Urinalysis Automated Today Z13.9 - Encounter for screening, unspecified Medications: New methenamine hippurate 1 g PO DAILY 90 days 90 tabs 1RF N39.0 - Urinary tract infection, site not specified, N40.1 - Benign prostatic hyperplasia with lower urinary tract symptoms, R33.9 - Retention of urine, unspecified, R39.15 - Urgency of urination ascorbic acid (vitamin C) 1 g PO DAILY 90 days 90 tabs 1RF N39.0 - Urinary tract infection, site not specified, R39.15 - Urgency of urination Refilled tamsulosin 0.4 mg PO BID 90 days 180 caps 3RF N13.8 - Other obstructive and reflux uropathy, N40.1 - Benign prostatic hyperplasia with lower urinary tract symptoms, R35.1 - Nocturia tadalafil Intended to take daily in the morning 10 mg PO DAILY 90 days 90 tabs 0RF Erectile Dysfunction R39.15 - Urgency of urination Discontinued levofloxacin Discontinued Reason: Patient Completed Course 500 mg PO DAILY 5 days 5 tabs 0RF Patient Instructions: Imaging studies, laboratory and physical exam results were discussed and reviewed in detail. No major barriers to patient understanding were identified. An opportunity to ask questions regarding the treatment plan was provided. All questions were answered. The patient expressed understanding and agreement with the above treatment plan. The patient is aware they should contact our office by phone for worsening of their current condition or the appearance of new urologic symptoms. Compliance is encouraged with any medications and followup testing that is ordered. It is a privilege to participate in the urologic care of your patient. If you have any questions or concerns regarding treatment for the above conditions, or other urologic issues, please do not hesitate to contact me. The office telephone contact is [phone]. This note is constructed using voice recognition software. While every effort has been made to ensure accuracy javascript web developer errors may have been included. Yours sincerely, Dr Vinay Lr MD, [facility] - Urology Providers of Expert, Compassionate Care for the Genitourinary System Coding Level of Care Code Est Pt Level 4 (37806) Diagnoses Urinary urgency R39.15 Bladder neck stricture N32.0 BPH w urinary obs/LUTS N40.1; N13.8
== END 2024-03-24 11:56 | disposition home or self-care (01) ==
PROVIDERS: PCP Nurse Practitioner Family; Visit Provider Urology
DX: N40.1 Benign prostatic hyperplasia with lower urinary tract symptoms (principal); R39.15 Urgency of urination; N32.0 Bladder-neck obstruction; N13.8 Other obstructive and reflux uropathy; Z13.9 Encounter for screening, unspecified
CPT/HCPCS: 99214

== ENCOUNTER → 2024-03-24 11:26 | Outpatient (BNVA) | payer MEDICARE, SELFPAY | PROVIDERS: PCP Nurse Practitioner Family; Visit Provider Urology | DX: N40.1 Benign prostatic hyperplasia with lower urinary tract symptoms (principal); R35.1 Nocturia; N52.9 Male erectile dysfunction, unspecified; R39.15 Urgency of urination; N32.0 Bladder-neck obstruction; N13.8 Other obstructive and reflux uropathy; R33.8 Other retention of urine; N39.0 Urinary tract infection, site not specified; Z79.899 Other long term (current) drug therapy | CPT/HCPCS: 81003; 99212 ==

== ENCOUNTER 2024-04-06 12:44 | Outpatient (REF) | payer MEDICARE, SELFPAY ==
[2024-04-06 16:25] LABS: Appearance Urine Clear; Color Urine Yellow; Glucose Urine UA Negative (Negative); Leukocyte Esterase Urine Negative (Negative); Nitrite Urine Positive (Negative); Specific Gravity - Urine 1.015 (1.005-1.025); UMIC TRIGGER UA YES; Urine Blood Negative (Negative); Urine Ketones Negative (Negative); Urine Protein Negative (Neg-Trace)
[2024-04-06 16:35] LABS: Bacteria Urine None Seen (None Seen); Hyaline Casts Urine 0-2 /LPF (0-2); RBC Urine 0-2 /HPF (0-2); Squamous Epithelial Cell Urine 0-2 /HPF (0-2); WBC Urine 0-5 /HPF (0-5)
== END 2024-04-06 12:45 | disposition home or self-care (01) ==
LOC: HO.HMGCLDS 12:44
PROVIDERS: PCP Nurse Practitioner Family; Visit Provider Urology
DX: R39.15 Urgency of urination (principal); N39.0 Urinary tract infection, site not specified; R39.9 Unspecified symptoms and signs involving the genitourinary system
CPT/HCPCS: 81001; 87086

== ENCOUNTER 2024-06-27 10:24 | Outpatient (REF) | payer MEDICARE, SELFPAY ==
[2024-06-27 13:37] LABS: Appearance Urine Clear; Color Urine Yellow; Glucose Urine UA Negative (Negative); Leukocyte Esterase Urine Small (1+) (Negative); Nitrite Urine Positive (Negative); PH 5.5 (5.0-9.0); Specific Gravity - Urine 1.025 (1.005-1.025); UMIC TRIGGER UA YES; Urine Blood Negative (Negative); Urine Ketones Trace mg/dL (Negative); Urine Protein Negative (Neg-Trace)
[2024-06-27 13:53] LABS: Bacteria Urine Trace (None Seen); Hyaline Casts Urine 0-2 /LPF (0-2); RBC Urine 0-2 /HPF (0-2); Squamous Epithelial Cell Urine 0-2 /HPF (0-2)
== END 2024-06-27 10:25 | disposition home or self-care (01) ==
LOC: HO.HMGCLDS 10:24
PROVIDERS: Visit Provider Urology
DX: R39.15 Urgency of urination (principal)
CPT/HCPCS: 81001; 87086; 87088; 87186

== ENCOUNTER 2024-08-18 14:07 | Outpatient (REF) | payer MEDICARE, SELFPAY ==
[2024-08-18 17:00] LABS: Appearance Urine Clear; Color Urine Yellow; Glucose Urine UA Negative (Negative); Leukocyte Esterase Urine Negative (Negative); Nitrite Urine Positive (Negative); UMIC TRIGGER UA YES; Urine Blood Negative (Negative); Urine Ketones Negative (Negative); Urine Protein Negative (Neg-Trace)
[2024-08-18 17:20] LABS: Bacteria Urine None Seen (None Seen); Hyaline Casts Urine 0-2 /LPF (0-2); RBC Urine 0-2 /HPF (0-2); Squamous Epithelial Cell Urine 0-2 /HPF (0-2); WBC Urine 0-5 /HPF (0-5)
== END 2024-08-18 14:08 | disposition home or self-care (01) ==
LOC: HO.HMGCLDS 14:07
PROVIDERS: Visit Provider Urology
DX: R39.15 Urgency of urination (principal)
CPT/HCPCS: 81001; 87086

== ENCOUNTER 2024-09-20 12:48 | Outpatient (REF) | payer MEDICARE, SELFPAY ==
[2024-09-20 16:57] LABS: Prostate Specific Antigen 6.01 ng/mL (<0.05-4.0)
== END 2024-09-20 12:49 | disposition home or self-care (01) ==
LOC: HO.HMGCLDS 12:48
PROVIDERS: Visit Provider Urology
DX: N40.1 Benign prostatic hyperplasia with lower urinary tract symptoms (principal); N13.8 Other obstructive and reflux uropathy; R97.20 Elevated prostate specific antigen [PSA]; Z12.5 Encounter for screening for malignant neoplasm of prostate
CPT/HCPCS: 36415; 84153

== ENCOUNTER 2024-09-22 11:12 | Outpatient (AMB) | payer MEDICARE, SELFPAY ==
--- NOTE | 2024-09-22 11:15 | A.OFFVIS_ITS ---
Intake Visit Reasons: 6m/UA/PVR Intake Note: Pt presents to the office today for a 6 month follow up/UA/PVR. PVR: 22mL Allergies No Known Allergies [No Known Allergies*] Allergy (Verified 09/22/24 11:17) HPI Comments Details: Aaron is a pleasant male. He is a patient of Dr Crawford. That he is seen for the following urologic conditions - lower urinary tract symptoms - nocturia - erectile dysfunction - renal cyst Six-month follow-up Emptying bladder effectively Had recurrent UTI in 07/17/2023 - last urinary culture negative Had adverse reaction to Levaquin with diarrhea Did very well with methenamine suppression PSA has moved Trial finasteride with repeat PSA Lower urinary tract symptoms Prior use medications - with tamsulosin Prior procedure - laser prostatectomy March 2019 - revision 11/17 Prior therapy - oxybutynin 15 mg, Myrbetriq 25 mg could not afford PSA - 08/16 1.8 - 10/16 3.9, 07/21 3.5, 09/19 6 Erectile dysfunction Prefers 10 mg daily Cialis Prior sildenafil with headache Renal cyst Stable on prior ultrasound PFSH Medical History GERD (gastroesophageal reflux disease) HTN (hypertension) Complicated urinary tract infection BPH w urinary obs/LUTS Surgical History History of cystoscopy History of surgery Family History Father Cancer Mother CVD (cardiovascular disease) Social History Household Members: Family Housing: Unknown / Unable to assess Do you presently have visiting nurse or other home services: No Comment: pt rings appropriately Patient Tobacco Use Status: Never used Tobacco service: Yes Current occupational status: retired Review of Systems Const Denies chills and Denies fever(s) Card Reports no additional complaints and Denies syncope Resp Denies cough GI Denies abdominal pain and Denies heartburn Reports as per HPI and Denies change in libido Neuro Denies syncope Psych Denies change in libido Endo Denies change in libido Physical Exam Const General: cooperative, healthy appearing, comfortable and no acute distress Orientation/consciousness: patient oriented x3 HEENT Face and sinus: Yes normal facial exam Mouth: moist mucous membranes Neck Neck: Yes normal visual inspection, Yes full ROM and Yes trachea midline Chest Chest palpation & inspection: normal inspection of the chest Resp Effort & Inspection: normal respiratory effort, able to speak in complete sentences and no respiratory distress GI Inspection: Yes normal to inspection Rectal Exam - Male: Yes normal sphincter tone and Yes prostate normal Male General Exam: Yes normal external exam Penis: normal penis and circumcised Meatus: meatus normal Scrotum: scrotum normal Testes: Testes normal Back/Spine/Pelvis Cervical Spine: normal cervical lordosis Thoracic/Lumbar Spine: thoracic and lumbar spine normal to inspection Skin General skin exam: no rashes or lesions noted Neuro General: patient oriented x3, gait normal, tone normal and moves all extremities Extrem General: Yes normal to inspection and Yes capillary refill normal Office Procedures Post Void Residual Post Residual Void Post Void Residual (PVR): 22 [id number] Void Residual by ultrasound Results AMB Urinalysis, Automated UA Leukoctes 15 Yi/uL Last Edit by Naida Zimmerman CMA on 09/22/24 11:34 UA Nitrite Negative Last Edit by Naida Zimmerman CMA on 09/22/24 11:34 UA Urobilinogen 0.2 mg/dL Last Edit by Naida Zimmerman CMA on 09/22/24 11:34 UA Protein 30 mg/dL Last Edit by Naida Zimmerman CMA on 09/22/24 11:34 UA pH 6.0 Last Edit by aNida Zimmerman CMA on 09/22/24 11:34 UA Blood 10 Oseas/uL Last Edit by Naida Zimmerman CMA on 09/22/24 11:34 UA Specific [place] 1.020 Last Edit by Naida Zimmerman CMA on 09/22/24 11:34 UA Ketone Positive Last Edit by Naida Zimmerman CMA on 09/22/24 11:34 UA Bilirubin 1 mg/dL Last Edit by Naida Zimmerman CMA on 09/22/24 11:34 UA Glucose 0 mg/dL Last Edit by Naida Zimmerman CMA on 09/22/24 11:34 Results Reviewed Results Reviewed: Laboratory Last Values Urine pH (Auto) 6.0 09/22/24 11:19 Specific [place] (Auto) 1.020 09/22/24 11:19 Urine Protein (Auto) 30 mg/dL 09/22/24 11:19 Glucose (UA)(Auto) 0 mg/dL 09/22/24 11:19 Urine Ketones (Auto) Positive 09/22/24 11:19 Urine Blood (Auto) 10 Oseas/uL 09/22/24 11:19 Urine Nitrite (Auto) Negative 09/22/24 11:19 Urine Bilirubin (Auto) 1 mg/dL 09/22/24 11:19 Urine Urobilinogen (Auto) 0.2 mg/dL 09/22/24 11:19 Leukocyte Esterase (Auto) 15 Yi/uL 09/22/24 11:19 Assessment & Plan Assessment & Plan Orders: Orders AMB Post Void Residual by ultrasound Today N13.8 - Other obstructive and reflux uropathy, N40.1 - Benign prostatic hyperplasia with lower urinary tract symptoms AMB Urinalysis Automated Today R39.15 - Urgency of urination PSA,Total (Free>4and<10) 6 Months R97.20 - Elevated prostate specific antigen [PSA] Medications: New finasteride 5 mg PO DAILY 90 days 90 tabs 1RF R97.20 - Elevated prostate specific antigen [PSA] Coding CPT Codes Post Residual Void - PVR CPT Code: 22688-[id number] Void Residual by ultrasound ([id number])
== END 2024-09-22 12:29 | disposition home or self-care (01) ==
LOC: HO.HUSH 11:12
PROVIDERS: PCP Nurse Practitioner Family; Visit Provider Urology
DX: R39.15 Urgency of urination (principal)

== ENCOUNTER → 2024-09-22 11:12 | Outpatient (BNVA) | payer MEDICARE, SELFPAY | PROVIDERS: PCP Nurse Practitioner Family; Visit Provider Urology | DX: N40.1 Benign prostatic hyperplasia with lower urinary tract symptoms (principal); N13.8 Other obstructive and reflux uropathy; N39.0 Urinary tract infection, site not specified | CPT/HCPCS: 51798; 81003; 99212 ==

== ENCOUNTER 2025-04-11 14:58 | Outpatient (REF) | payer MEDICARE, SELFPAY ==
[2025-04-11 17:23] LABS: PSA,Total (Free>4and<10) 1.38 ng/mL (0.00-4.00)
== END 2025-04-11 14:59 | disposition home or self-care (01) ==
LOC: HO.HMGCLDS 14:58
PROVIDERS: PCP Nurse Practitioner Family; Visit Provider Urology
DX: Z12.5 Encounter for screening for malignant neoplasm of prostate (principal); R97.20 Elevated prostate specific antigen [PSA]
CPT/HCPCS: 36415; 84153